=== PATIENT | male | born 1970 | race Caucasian/White ===

== ENCOUNTER → 2016-11-19 | Day surgery (SDC) | payer OTHER ==
[~2016-11-19] VITALS: Ht 175.3 cm; Wt 143.3 kg
[~2016-11-19] MED LIST: ATOR40TA PO; CEFUROXIME SODIUM 1.5 GM in D5W MINI-BAG PLUS 50 ML IV ONE; COLA100C PO; CYCL10TA PO; CYMB60CA3 PO; GABA600T PO; GLIP5TAB8 PO; HYDR25TAB PO; INVO100T PO; KETOROLAC 60 MG/2 ML VIAL (J1885) As Ordered ONE; LIDOCAINE 0.5% SDV INJ 50 ML VIAL As Ordered ONE; LIDOCAINE 1% MDV 20ML VIAL As Ordered ONE; LIDOCAINE 2% INJ 100 MG/5 ML SDV (FOR ANES.) As Ordered ONE; LISI-542 PO; LR 1,000 ML IV SCH; METF1000 PO; MIDAZOLAM INJ 2 MG/2 ML VIAL (J2250) As Ordered ONE; NORCO, ANEXSIA 5/325MG TABLET (HYDROcodone/ACETAMINOPHEN) PO PRN; PRIL20CA9 PO; PROPOFOL 200 MG/20 ML VIAL As Ordered ONE; VITA50TA43 PO; ZYRT10TA2 PO; fentaNYL 100 MCG/2 ML INJECTION (J3010) As Ordered ONE; methylPREDNISolone SUSP 40 MG/ML (DEPO-medrol) VIAL (J1030) As Ordered ONE; methylPREDNISolone SUSP 40 MG/ML (DEPO-medrol) VIAL (J1030) XX ONE
[2016-11-19 10:00] VITALS: BP 137/70
--- NOTE | 2016-11-19 13:47 | RO ---
DATE OF PROCEDURE: 11/19/2016 PREOPERATIVE DIAGNOSES: Right carpal tunnel syndrome. Morbid obesity. POSTOPERATIVE DIAGNOSES: Right carpal tunnel syndrome. Morbid obesity. PROCEDURE: Release of right carpal tunnel. SURGEON: Immanuel Viramontes MD MORTUARY TECHNICIAN: ANESTHESIA: Tremaine block with conscious sedation. FINDINGS: Please see my office note for detailed preoperative evaluation and discussions. The patient had clinical and electrodiagnostic evidence of carpal tunnel syndrome. The patient was seen in the preoperative area and detailed discussions were held again. The patient was aware of all options, risks, scope, expected outcome, sequelae and all complications of the proposed salvage procedure. He understood not all of his symptoms could be readily explained on the carpal tunnel syndrome; thus, all may not be addressed. He understood the risks included , infection, bleeding, persistence or worsening of symptoms, RSD and/or any other catastrophic sequelae. He understood the symptoms may get worse. Once again, he expressed that he is willing to take any risks for any possible benefit as he can no longer live with his symptoms and he is aware that he is a poor and high risk candidate for surgery. The patient was cleared for surgery by his primary care provider. The patient had followup instructions. After informed consent, he was taken to the operating room. DESCRIPTION OF PROCEDURE: Once in the operating room, [place] block was given by the anesthesia service. The area of surgery was prepped and draped in the usual sterile fashion. A tourniquet was applied during the process of the Tremaine block. At this time, a skin incision was given distal to the wrist crease along one of the palmar creases. Alveolar layer was reached and incised. Cut edges of blood vessels were coagulated with bipolar cautery. Tendons of the palmaris longus were separate. Thenar and hyperthenar muscles were stripped off the flexor retinaculum, which was then incised in its entirety. There was marked nodular hypertrophy of the flexor retinaculum. Also, there was superficial median nerve adhesions which were lysed. Complete decompression of the median nerve was achieved of the carpal tunnel and distal forearm. The wound was closed in two layers. The patient tolerated the procedure well and was transferred out of the operating room in stable condition. He had no family members in attendance for further discussion. The patient however had written and verbal followup instructions. cc: Bryson Echevarria MD *Du Bustos MD
== END | disposition home or self-care (01) ==
LOC: M SDC 06:05
PROVIDERS: ATTEND Neurological Surgery
DX: G56.01 Carpal tunnel syndrome, right upper limb (principal); E66.9 Obesity, unspecified; I10 Essential (primary) hypertension; E11.21 Type 2 diabetes mellitus with diabetic nephropathy; K21.9 Gastro-esophageal reflux disease without esophagitis; G62.9 Polyneuropathy, unspecified; R20.2 Paresthesia of skin; R94.31 Abnormal electrocardiogram [ECG] [EKG]; E78.00 Pure hypercholesterolemia, unspecified; R60.0 Localized edema; K58.9 Irritable bowel syndrome, unspecified; G89.29 Other chronic pain; M79.601 Pain in right arm; M79.602 Pain in left arm; M79.604 Pain in right leg; M79.605 Pain in left leg; M54.5 Low back pain; G47.33 Obstructive sleep apnea (adult) (pediatric); R06.83 Snoring; M12.9 Arthropathy, unspecified; F41.9 Anxiety disorder, unspecified; F32.9 Major depressive disorder, single episode, unspecified; R06.02 Shortness of breath; Z88.8 Allergy status to other drugs, medicaments and biological substances; Z79.899 Other long term (current) drug therapy

== ENCOUNTER 2017-09-14 12:50 | Outpatient (RCR) | payer OTHER ==
[~2017-09-14 12:50] MED LIST changes: -ATOR40TA PO; +ATOR40TA75 PO; -CEFUROXIME SODIUM 1.5 GM in D5W MINI-BAG PLUS 50 ML IV ONE; -COLA100C PO; +COLA100C5 PO; -KETOROLAC 60 MG/2 ML VIAL (J1885) As Ordered ONE; -LIDOCAINE 0.5% SDV INJ 50 ML VIAL As Ordered ONE; -LIDOCAINE 1% MDV 20ML VIAL As Ordered ONE; -LIDOCAINE 2% INJ 100 MG/5 ML SDV (FOR ANES.) As Ordered ONE; -LR 1,000 ML IV SCH; -METF1000 PO; +METF10004 PO; -MIDAZOLAM INJ 2 MG/2 ML VIAL (J2250) As Ordered ONE; -NORCO, ANEXSIA 5/325MG TABLET (HYDROcodone/ACETAMINOPHEN) PO PRN; -PROPOFOL 200 MG/20 ML VIAL As Ordered ONE; -fentaNYL 100 MCG/2 ML INJECTION (J3010) As Ordered ONE; -methylPREDNISolone SUSP 40 MG/ML (DEPO-medrol) VIAL (J1030) As Ordered ONE; -methylPREDNISolone SUSP 40 MG/ML (DEPO-medrol) VIAL (J1030) XX ONE
== END 2017-10-01 ==
LOC: M PT 12:50
PROVIDERS: ATTEND Neurological Surgery
DX: Z51.89 Encounter for other specified aftercare (principal); M47.896 Other spondylosis, lumbar region; M54.5 Low back pain

== ENCOUNTER → 2017-09-29 | Outpatient (CLI) | payer OTHER ==
[~2017-09-29] MED LIST changes: +ISOVUE-M 300 61% 15ML VIAL (Q9967) As Ordered ONE; +LIDOCAINE 1% SDV INJ 30 ML VIAL As Ordered ONE; +diazePAM 5 MG TAB As Ordered ONE; +methylPREDNISolone SUSP 40 MG/ML (DEPO-medrol) VIAL (J1030) As Ordered ONE; +oxyCODONE 5MG TAB As Ordered ONE
--- NOTE | 2017-09-29 12:50 | REP ---
Partial lumbar spine series: Five views. . History: Injection procedure for pain. 57 seconds of fluoroscopy time is reported. Findings: A sequence of five fluoroscopically obtained last image hold procedural spot radiographs of the lumbar spine document needle position and contrast injection associated with injection procedure. Signed by Leroy Obando MD 09/29/2017 12:42 P
--- NOTE | 2017-10-14 00:32 | ECWPNPC ---
PATIENT NAME: RUBÉN MARC : 1970 GENDER: MALE VISIT DATE: 09/29/2017 DISCHARGE DATE: 09/29/17 1225 VISIT LOCKED DATE TIME: PHYSICIAN: YOANA MENDOZA RESOURCE: YOANA MENDOZA REASON FOR APPOINTMENT 1. LUMBAR INTRALAMINAL LESI L3/4 HISTORY OF PRESENT ILLNESS HISTORY OF PRESENT ILLNESS: PAIN THE PATIENT DESCRIBES THE PAIN... FALL RISK SCREENING: SCREENING :NO FALLS IN THE PAST YEAR CURRENT MEDICATIONS TAKING GABAPENTIN 600 MG TABLET TAKE 2 TABLETS BY MOUTH THREE TIMES A DAY ORAL , NOTES: 09/29 600 TAKING CETIRIZINE HCL 10 MG TABLET TAKE ONE TABLET BY MOUTH EVERY DAY ORAL , NOTES: 09/29 600 TAKING CYCLOBENZAPRINE HCL 10 MG TABLET TAKE ONE TABLET BY MOUTH THREE TIMES A DAY NEEDED ORAL , NOTES: 09/29 600 TAKING DOK 100 MG CAPSULE TAKE ONE CAPSULE BY MOUTH TWICE A DAY ORAL , NOTES: 09/29 600 TAKING DULOXETINE HCL 60 MG CAPSULE DELAYED RELEASE PARTICLES TAKE ONE CAPSULE BY MOUTH TWICE A DAY ORAL , NOTES: 09/29 600 TAKING CLOPIDOGREL BISULFATE 75 MG TABLET TAKE ONE TABLET BY MOUTH EVERY DAY ORAL , NOTES: 09/20 TAKING FAMOTIDINE 20 MG TABLET TAKE ONE TABLET BY MOUTH EVERY 12 HOURS ORAL , NOTES: 09/29 600 MEDICATION LIST REVIEWED AND RECONCILED WITH THE PATIENT PAST MEDICAL HISTORY SLEEP APNEA GERD HIGH CHOLESTEROL HTN ON PLAVIX BECAUSE MD COULD NOT FEEL PEDAL PULSES / PT GOING TO SEE VASCULAR SURGEON IN FUTURE ALLERGIES MODAFINIL: ITCHING SURGICAL HISTORY RIGHT CARPAL TUNNEL 11/2016 BARIATRIC SURGERY 04/2017 LEFT CARPAL MARIEL / ELBOW 05/2017 SOCIAL HISTORY GENERAL: TOBACCO USE ARE YOU A:NONSMOKER ALCOHOL SCREENING DID YOU HAVE A DRINK CONTAINING ALCOHOL IN THE PAST YEAR?NO POINTS0 INTERPRETATIONNEGATIVE RECREATIONAL DRUG USE DRUG USE?NO CAFFEINE CAFFEINE USE?YES DIET: BARIATRIC. CONFUCIANIST [id number] LEARNING BARRIERS / SPECIAL NEEDS BARRIERS TO LEARNING?NO HEARING IMPAIRED?NO VISION IMPAIRED?YES :CORRECTIVE LENSES COGNITIVELY IMPAIRED?NO READINESS TO LEARN?YES LEARNING PREFERENCES?NO LEARNING CAPABILITIES PRESENT?YES EMOTIONAL BARRIERS?NO SPECIAL DEVICES?YES :CANE, WALKER, WHEELCHAIR PAIN CLINIC PFS, CLERGY, PUBLIC HEALTH REFERRALS PFS REFERRAL NEEDED?NO CLERGY REFERRAL NEEDED?NO PUBLIC HEALTH REFERRAL NEEDED?NO WAS THE PROVIDER NOTIFIED OF ANY PERTINENT INFO?NO HAS THE PATIENT BEEN EDUCATED REGARDING HIS/HER PLAN OF CARE?YES HAS THE PATIENT BEEN EDUCATED REGARDING PAIN, THE RISK FOR PAIN, THE IMPORTANCE OF EFFECTIVE PAIN MANAGEMENT, AND THE PAIN ASSESSMENT PROCESS?YES REVIEWED BY: 09/29/17 1025 AD. PATIENT: ____. ADVANCE DIRECTIVES HEALTH CARE PROXY?YES NAME OF HCP GEOVANY MARC CONTACT # FOR HCP [phone] DO YOU HAVE A DNR?NO WOULD YOU LIKE MORE INFORMATION?NO LIVING WILL?NO WOULD YOU LIKE MORE INFORMATION?NO POWER OF ELECTRIC CLOCK MECHANIC?NO WOULD YOU LIKE MORE INFORMATION?NO SOCIAL HISTORY PATIENTDENIES ABUSE OR MISSUSED OF ANY MEDICATION, DENIES RECREATIONAL DRUG USE DOMESTIC VIOLENCE DO YOU FEEL SAFE IN YOUR ENVIRONMENT?YES HOSPITALIZATION/MAJOR DIAGNOSTIC PROCEDURE SEE ABOVE REVIEW OF SYSTEMS REVIEWED BY: PROVIDER: . CONSTITUTIONAL: ANY CHANGE IN YOUR MEDICAL CONDITION? NO . CHILLS NO . FEVER NO . INFECTION: DO YOU HAVE NEW INFECTIONS? NO . DO YOU HAVE HISTORY OF MRSA? NO . MUSCULOSKELETAL: ANY NEW PATTERNS OF PAIN OR NUMBNESS? NO . GASTROENTEROLOGY: ANY NEW CHANGE IN BOWEL CONTROL? NO . GENITOURINARY: ANY NEW CHANGE IN BLADDER CONTROL? NO . IS THERE A CHANCE YOU COULD BE ? NO . HEMATOLOGY/LYMPH: DO YOU TAKE ANY BLOOD THINNERS? (FOR EXAMPLE- COUMADIN, PLAVIX, AGGRENOX, PLATEL, PRADAXA, OR XARELTO) NO . WHEN WAS YOUR LAST DOSE? DATE: TIME: . NEUROLOGY: HAVE YOU FALLEN IN THE PAST 6 MONTHS? YES, APPROX 3 TIMES, HIS RIGHT LEG GIVES OUT ON HIM. . ANY NEW EXTREMITY NUMBNESS OR WEAKNESS? NO . CARDIOLOGY: DO YOU HAVE A PACEMAKER OR DEFIBRILLATOR? NO . RESPIRATORY: HAVE YOU BEEN SICK IN THE PAST WEEK? NO . FEVER NO . FLU LIKE SYMPTOMS? NO . COUGH NO . INTEGUMENTARY: DO YOU HAVE ANY RASHES OR OPEN SORES? NO . ALLERGIC/IMMUNO: ARE YOU ALLERGIC TO SHELLFISH OR IV DYE? NO . ANY NEW ALLERGIES? NO . PSYCHIATRIC: DO YOU HAVE THOUGHTS OF HURTING YOURSELF OR SOMEONE ELSE? NO . ARE YOU ABUSED, NEGLECTED, OR IN AN UNSAFE ENVIRONMENT? NO . ENDOCRINOLOGY: ARE YOU DIABETIC? NO . OTHER: DO YOU NEED ANY PRESCRIPTIONS? NO . IF YES, PLEASE LIST: ____ . ANY NEW PROBLEMS WITH YOUR MEDICATIONS? NO . WHEN DID YOU LAST EAT? 09/28 1800 . WHEN DID YOU LAST DRINK? 09/29 0700 . WHAT DID YOU LAST DRINK? WATER . NAME OF PERSON DRIVING YOU HOME? AVI LORA . DO YOU HAVE ANY OTHER QUESTIONS OR CONCERNS NO . VITAL SIGNS WT 284.2 LBS, HT 69 IN, BMI 41.96 INDEX, BP 132/81 MM HG, HR 69 /MIN, RR 16 /MIN, TEMP 96.0 F, OXYGEN SAT % 99%, SAFE IN ENV? (Y/N) Y, NA INITIALS TL 1016, REVIEWED BY: AD. ASSESSMENTS INTERVERTEBRAL DISC DISORDER WITH RADICULOPATHY OF LUMBAR REGION - M51.16 (PRIMARY) PROCEDURES PRE PROCEDURE DIAGNOSIS LUMBAR DISC DISORDER WITH RADICULOPATHY POST PROCEDURE DIAGNOSIS LUMBAR DISC DISORDER WITH RADICULOPATHY PROCEDURE LUMBAR EPIDURAL STEROID INJECTION UNDER FLUOROSCOPIC GUIDANCE SURGEON DR. YOANA MENDOZA COMPLIANCE COUNSEL NONE ANESTHESIA LOCAL PRE PROCEDURE NOTE THE PATIENT HAS A HISTORY OF CHRONIC LOW BACK PAIN. I EVALUATE THE PATIENT AND REVIEWED THE CHART. I WENT OVER THE RISKS, ALTERNATIVES, AND BENEFITS ASSOCIATED WITH THIS PROCEDURE. THE PATIENT WOULD LIKE TO PROCEED AND GIVE CONSENT TO PERFORMED THE PROCEDURE. THE PATIENT DENIES UNEXPLAINABLE WEIGHT LOSS, FEVER, CHILLS, OR NEW CHANGES IN URINARY OR BOWEL CONTROL. DESCRIPTION OF PROCEDURE THE PATIENT WAS BROUGHT TO THE PROCEDURE ROOM AND PLACED IN THE PRONE POSITION. THE LUMBOSACRAL AREA WAS CLEANED WITH BETADINE SOLUTION AND DRAPED ASEPTICALLY. THE PROCEDURE WAS DONE UNDER STERILE CONDITIONS. I CHECKED LATERALITY AND THE LEVEL WHERE THE PROCEDURE WAS GOING TO BE PERFORMED WITH THE PATIENT AND THE SUPPORTING STAFF AT THE MOMENT OF THE TIME OUT IN THE PROCEDURE ROOM. UNDER FLUOROSCOPIC GUIDANCE, THE TARGET POINT WAS SELECTED AT THE INTERLAMINAR LEVEL OF L2-L3. LIDOCAINE WAS USED TO NUMB THE SKIN AND THE SUBCUTANEOUS TISSUE BELOW IT. EPIDURAL TUOHY NEEDLE, 17-GAUGE, WAS ADVANCED UNDER FLUOROSCOPIC GUIDANCE AND FOLLOWING PATIENT FEEDBACK UNTIL THE EPIDURAL SPACE WAS REACHED, 7 CM DEEP INTO THE SKIN BY THE LOSS OF RESISTANCE TECHNIQUE. ISOVUE M DYE 30%, 0.25 ML, WAS INJECTED SHOWING ADEQUATE SPREAD OF THE DYE. THEN, A SOLUTION OF 3 ML OF NORMAL SALINE WITH DEPO-MEDROL 60 MG WAS INJECTED SLOWLY FOLLOWING PATIENT FEEDBACK. THERE WAS NO EVIDENCE OF BLOOD, PARESTHESIA OR CEREBROSPINAL FLUID DURING THE PROCEDURE. THE PATIENT WAS SENT TO THE RECOVERY ROOM. THE PATIENT WAS MOVING THE EXTREMITIES AND DOING WELL. THERE WAS NO COMPLICATION DURING THE PROCEDURE. FLUOROSCOPY TIME WAS 57 SECONDS. POST PROCEDURE NOTE THE PATIENT WILL BE SEEN IN A FOLLOW UP IN THE NEXT FEW WEEKS. INSTRUCTIONS WERE GIVEN, QUESTIONS WERE ANSWERED, AND THE PATIENT EXPRESSED UNDERSTANDING AND AGREES WITH THE PLAN. I, SEAN CASTRO, DOCUMENTED THE ABOVE INFORMATION ACTING A SCRIBE FOR DR. MENDOZA. I HAVE REVIEWED THE ABOVE DOCUMENT, WRITTEN BY SEAN RAUSCHIBNaveed AND I VERIFY THAT IT IS ACCURATE. DIAGNOSTIC IMAGING [facility] FLUORO GUIDE SPINE INJECTION (PAIN)[id number] PROCEDURE CODES 31331 LUMBAR/SACRAL W/ IMAGING 6045F RADXPS IN END [id number] PXD DISPOSITION & COMMUNICATION FOLLOW UP 2 WEEKS ELECTRONICALLY SIGNED BY YOANA MENDOZA MD ON 10/13/2017 AT 09:57 PM EST DISCLAIMER : THIS IS A VISIT SUMMARY EXTRACTED FROM THE [employer] CHART. IT IS NOT A COPY OF THE [employer] PROGRESS NOTE. MTDD
== END ==
LOC: M PAIN 10:15
PROVIDERS: ATTEND Anesthesiology
DX: G89.29 Other chronic pain (principal); M51.16 Intervertebral disc disorders with radiculopathy, lumbar region; G47.30 Sleep apnea, unspecified; K21.9 Gastro-esophageal reflux disease without esophagitis; E78.00 Pure hypercholesterolemia, unspecified; I10 Essential (primary) hypertension; Z79.02 Long term (current) use of antithrombotics/antiplatelets; Z79.899 Other long term (current) drug therapy; Z98.84 Bariatric surgery status; Z88.8 Allergy status to other drugs, medicaments and biological substances
CPT/HCPCS: 62323; J1030; Q9967

== ENCOUNTER → 2017-10-05 | Outpatient (CLI) | payer OTHER ==
[~2017-10-05] MED LIST changes: -ISOVUE-M 300 61% 15ML VIAL (Q9967) As Ordered ONE; -LIDOCAINE 1% SDV INJ 30 ML VIAL As Ordered ONE; -diazePAM 5 MG TAB As Ordered ONE; -methylPREDNISolone SUSP 40 MG/ML (DEPO-medrol) VIAL (J1030) As Ordered ONE; -oxyCODONE 5MG TAB As Ordered ONE
--- NOTE | 2017-10-05 14:33 | REP ---
BILATERAL LOWER EXTREMITY DUPLEX VENOUS ULTRASOUND, REFLUX STUDY: 10/05/2017 CLINICAL HISTORY: Venous insufficiency. No comparison study. RIGHT REFLUX STUDY: Common femoral vein: Yes reflux. Anterior accessory GSV present, no reflux. GSV at saphenofemoral junction: Yes reflux. AP dimension 5.8 mm, reflux 1.8 second GSV at midthigh: Yes reflux. AP diameter was 4.1 mm, time 8.56 seconds. GSV at knee: Yes reflux. AP dimension 2.6 mm, time 1.2 seconds. SFV proximal: Yes reflux. SFV mid: Yes reflux. SFV distal: No reflux. Popliteal vein: No reflux. LSV: No reflux. AP diameter LSD 3.4 mm. Minimal reflux seen in the deep system to the mid SFV. Reflux also the greater saphenous vein proximal to distal. LEFT REFLUX STUDY: Common femoral vein: Yes reflux. Anterior accessory greater saphenous vein present, minimal reflux. GSV at saphenofemoral junction: Yes reflux. AP dimension 4.7 mm, time 1.7 seconds. GSV at midthigh: Yes reflux. AP diameter 3.2 mm, time 1.2 seconds GSV at the knee: No reflux. AP diameter 2.3 mm. SFV proximal: Yes reflux. SFV mid: Yes reflux. SFV distal: Yes reflux. Popliteal vein: Yes reflux. LSV: No reflux. AP dimension 1 mm Reflux was seen in deep venous system and minimal reflux in the anterior accessory and greater saphenous vein from proximal to midportion. Signed by Doug Ontiveros MD 10/06/2017 08:12 P
== END ==
LOC: M RAD 11:48
PROVIDERS: ATTEND Surgery Vascular Surgery
DX: M79.605 Pain in left leg (principal); M79.604 Pain in right leg

== ENCOUNTER → 2017-10-22 | Outpatient (CLI) | payer OTHER | LOC: M PAIN 11:15 | DX: M51.26 Other intervertebral disc displacement, lumbar region (principal); M54.16 Radiculopathy, lumbar region; Z79.899 Other long term (current) drug therapy; Z88.8 Allergy status to other drugs, medicaments and biological substances | CPT/HCPCS: G0463 ==

== ENCOUNTER → 2017-12-08 | Outpatient (CLI) | payer OTHER ==
[~2017-12-08] MED LIST changes: -ATOR40TA75 PO; -COLA100C5 PO; -CYCL10TA PO; -CYMB60CA3 PO; -GABA600T PO; -GLIP5TAB8 PO; -HYDR25TAB PO; -INVO100T PO; +ISOVUE-M 300 61% 15ML VIAL (Q9967) As Ordered; +LIDOCAINE 1% SDV INJ 30 ML VIAL As Ordered; -LISI-542 PO; -METF10004 PO; -PRIL20CA9 PO; -VITA50TA43 PO; -ZYRT10TA2 PO; +diazePAM 5 MG TAB As Ordered; +methylPREDNISolone SUSP 40 MG/ML (DEPO-medrol) VIAL (J1030) As Ordered; +oxyCODONE 5MG TAB As Ordered
== END ==
LOC: M PAIN 11:15
DX: G89.29 Other chronic pain (principal); M51.16 Intervertebral disc disorders with radiculopathy, lumbar region; G47.30 Sleep apnea, unspecified; E78.00 Pure hypercholesterolemia, unspecified; I10 Essential (primary) hypertension; I87.2 Venous insufficiency (chronic) (peripheral); Z79.899 Other long term (current) drug therapy; Z88.8 Allergy status to other drugs, medicaments and biological substances
CPT/HCPCS: J1030

== ENCOUNTER → 2017-12-25 | Outpatient (CLI) | payer OTHER | LOC: M PAIN 10:30 | DX: M47.27 Other spondylosis with radiculopathy, lumbosacral region (principal); M51.26 Other intervertebral disc displacement, lumbar region; E11.9 Type 2 diabetes mellitus without complications; Z79.891 Long term (current) use of opiate analgesic; Z79.899 Other long term (current) drug therapy; Z88.8 Allergy status to other drugs, medicaments and biological substances | CPT/HCPCS: G0463 ==

== ENCOUNTER → 2018-01-08 | Outpatient (CLI) | payer OTHER | LOC: M RAD 09:29 | DX: I87.393 Chronic venous hypertension (idiopathic) with other complications of bilateral lower extremity (principal) | CPT/HCPCS: 93971 ==

== ENCOUNTER → 2018-01-20 | Outpatient (CLI) | payer OTHER | LOC: M PAIN 10:00 | DX: M47.27 Other spondylosis with radiculopathy, lumbosacral region (principal); M51.26 Other intervertebral disc displacement, lumbar region; M79.1 Myalgia; Z79.891 Long term (current) use of opiate analgesic; Z79.899 Other long term (current) drug therapy; Z88.8 Allergy status to other drugs, medicaments and biological substances | CPT/HCPCS: G0463 ==

== ENCOUNTER → 2018-03-18 | Outpatient (CLI) | payer OTHER | LOC: M PAIN 09:30 | DX: G89.29 Other chronic pain (principal); M53.3 Sacrococcygeal disorders, not elsewhere classified; G47.30 Sleep apnea, unspecified; K21.9 Gastro-esophageal reflux disease without esophagitis; E78.00 Pure hypercholesterolemia, unspecified; I10 Essential (primary) hypertension; I87.2 Venous insufficiency (chronic) (peripheral); Z79.02 Long term (current) use of antithrombotics/antiplatelets; Z79.899 Other long term (current) drug therapy; Z98.84 Bariatric surgery status; Z88.8 Allergy status to other drugs, medicaments and biological substances | CPT/HCPCS: G0463 ==

== ENCOUNTER → 2018-03-26 | Outpatient (CLI) | payer OTHER | LOC: M RAD 12:25 | DX: I87.393 Chronic venous hypertension (idiopathic) with other complications of bilateral lower extremity (principal); M79.604 Pain in right leg; E11.59 Type 2 diabetes mellitus with other circulatory complications | CPT/HCPCS: 93971 ==

== ENCOUNTER 2018-04-06 13:13 | Outpatient (RCR) | payer OTHER | END 2018-05-01 | LOC: M PT 13:13 | DX: Z51.89 Encounter for other specified aftercare (principal); M46.1 Sacroiliitis, not elsewhere classified | CPT/HCPCS: 97010 ==

== ENCOUNTER → 2018-04-20 | Outpatient (CLI) | payer OTHER ==
[~2018-04-20] MED LIST changes: +BUPIVACAINE HCL 0.25% 30 ML VIAL As Ordered; +TRIAMCINOLONE ACETONIDE SUSP 40 MG/ML VIAL (J3301) As Ordered; -methylPREDNISolone SUSP 40 MG/ML (DEPO-medrol) VIAL (J1030) As Ordered
== END ==
LOC: M PAIN 11:15
DX: G89.29 Other chronic pain (principal); M46.1 Sacroiliitis, not elsewhere classified; G47.30 Sleep apnea, unspecified; E78.00 Pure hypercholesterolemia, unspecified; I10 Essential (primary) hypertension; I87.2 Venous insufficiency (chronic) (peripheral); Z79.01 Long term (current) use of anticoagulants; Z79.899 Other long term (current) drug therapy; Z88.8 Allergy status to other drugs, medicaments and biological substances; Z98.84 Bariatric surgery status
CPT/HCPCS: J3301

== ENCOUNTER 2018-04-23 07:44 | Day surgery (SDC) | payer OTHER ==
[2018-04-23] MEDS ORDERED: LIDOCAINE 1% MDV 20ML VIAL SQ ×2 (08:00)
[2018-04-23] MEDS ORDERED: LR 1,000 ML IV ×2 (08:00)
[2018-04-23 09:13] LABS: BEDSIDE GLUCOSE 133 MG/DL (70-105)
[2018-04-23] MEDS ORDERED: MIDAZOLAM INJ 2 MG/2 ML VIAL (J2250) As Ordered ×2 (10:42)
[2018-04-23] MEDS ORDERED: fentaNYL 100 MCG/2 ML INJECTION (J3010) As Ordered ×2 (10:43)
[2018-04-23] MEDS ORDERED: ONDANSETRON 4MG/2ML VIAL (J2405) As Ordered ×2 (11:02)
[2018-04-23] MEDS ORDERED: dexameTHASONE 4 MG/ML 1ML VIAL (J1100) As Ordered ×4 (11:02)
[2018-04-23] MEDS ORDERED: PROPOFOL 200 MG/20 ML VIAL As Ordered ×6 (11:02→11:49)
[2018-04-23] MEDS ORDERED: LIDOCAINE 2% INJ 100 MG/5 ML SDV (FOR ANES.) As Ordered ×2 (11:02)
[2018-04-23] MEDS: LIDOCAINE W/EPINEPHRINE 1% 20ML VIAL As Ordered ×2 (11:38)
[2018-04-23] MEDS ORDERED: fentaNYL 100 MCG/2 ML INJECTION (J3010) IV ×2 (12:30)
[2018-04-23] MEDS ORDERED: ONDANSETRON 4MG/2ML VIAL (J2405) IV ×2 (12:30)
[2018-04-23] MEDS: NORCO, ANEXSIA 5/325MG TABLET (HYDROcodone/ACETAMINOPHEN) PO ×2 (12:40)
== END 2018-04-23 13:40 | disposition home or self-care (01) ==
LOC: M SDC 07:44
DX: I87.2 Venous insufficiency (chronic) (peripheral) (principal); M79.604 Pain in right leg (principal)
CPT/HCPCS: 36475; J2405

== ENCOUNTER → 2018-04-30 | Outpatient (CLI) | payer OTHER | LOC: M RAD 09:21 | DX: M71.21 Synovial cyst of popliteal space [Baker], right knee (principal) | CPT/HCPCS: 93971 ==

== ENCOUNTER → 2018-05-20 | Outpatient (CLI) | payer OTHER | LOC: M PAIN 10:45 | DX: M46.1 Sacroiliitis, not elsewhere classified (principal); M25.562 Pain in left knee; M25.561 Pain in right knee; E78.00 Pure hypercholesterolemia, unspecified; I10 Essential (primary) hypertension; G47.33 Obstructive sleep apnea (adult) (pediatric); I87.2 Venous insufficiency (chronic) (peripheral); Z79.01 Long term (current) use of anticoagulants; Z79.899 Other long term (current) drug therapy; Z88.8 Allergy status to other drugs, medicaments and biological substances; Z98.84 Bariatric surgery status | CPT/HCPCS: G0463 ==

== ENCOUNTER → 2018-06-21 | Outpatient (CLI) | payer OTHER | LOC: M PAIN 11:30 | DX: M46.1 Sacroiliitis, not elsewhere classified (principal); G47.30 Sleep apnea, unspecified; K21.9 Gastro-esophageal reflux disease without esophagitis; E78.00 Pure hypercholesterolemia, unspecified; I10 Essential (primary) hypertension; I87.2 Venous insufficiency (chronic) (peripheral); Z79.02 Long term (current) use of antithrombotics/antiplatelets; Z79.899 Other long term (current) drug therapy; Z98.84 Bariatric surgery status; Z88.8 Allergy status to other drugs, medicaments and biological substances | CPT/HCPCS: J3301 ==

== ENCOUNTER → 2018-07-21 | Outpatient (CLI) | payer MEDICARE | LOC: M PAIN 11:30 | DX: M51.27 Other intervertebral disc displacement, lumbosacral region (principal); M46.1 Sacroiliitis, not elsewhere classified; G47.33 Obstructive sleep apnea (adult) (pediatric); K21.9 Gastro-esophageal reflux disease without esophagitis; E78.00 Pure hypercholesterolemia, unspecified; I10 Essential (primary) hypertension; Z79.01 Long term (current) use of anticoagulants; Z79.899 Other long term (current) drug therapy; Z98.84 Bariatric surgery status; Z88.8 Allergy status to other drugs, medicaments and biological substances | CPT/HCPCS: G0463 ==

== ENCOUNTER → 2018-08-16 | Outpatient (CLI) | payer MEDICARE, OTHER ==
[~2018-08-16] MED LIST changes: -BUPIVACAINE HCL 0.25% 30 ML VIAL As Ordered; -TRIAMCINOLONE ACETONIDE SUSP 40 MG/ML VIAL (J3301) As Ordered; +methylPREDNISolone SUSP 40 MG/ML (DEPO-medrol) VIAL (J1030) As Ordered
== END ==
LOC: M PAIN 10:30
DX: G89.29 Other chronic pain (principal); M51.16 Intervertebral disc disorders with radiculopathy, lumbar region; I10 Essential (primary) hypertension; G47.30 Sleep apnea, unspecified; E78.00 Pure hypercholesterolemia, unspecified; Z79.899 Other long term (current) drug therapy; Z88.8 Allergy status to other drugs, medicaments and biological substances; Z86.79 Personal history of other diseases of the circulatory system; Z98.84 Bariatric surgery status
CPT/HCPCS: J1030

== ENCOUNTER → 2018-08-18 | Outpatient (CLI) | payer OTHER, MEDICARE ==
[2018-08-18 11:10] LABS: ALBUMIN 4.2 GM/DL (3.2-5.2); ALBUMIN/GLOBULIN RATIO 1.27 (1.00-1.93); ALKALINE PHOSPHATASE 124 U/L (45-117); ALT/SGPT 81 U/L (12-78); AST/SGOT 36 U/L (7-37); BILIRUBIN,DIRECT < 0.1 MG/DL (0.0-0.2); BILIRUBIN,TOTAL 0.3 MG/DL (0.2-1.0); CHOLESTEROL LEVEL 190 MG/DL (<200); CHOLESTEROL RISK RATIO 3.392 (<5); FERRITIN 204 NG/ML (26-388); HDL CHOLESTEROL 56 MG/DL (>40); IRON (FE) 78 UG/DL (65-175); LDL CHOLESTEROL 101 MG/DL (<100); NON-HDL-C 134 MG/DL; PERCENT SATURATION 25.9 % (19.7-50.0); TOTAL IRON BINDING CAPACITY 301 UG/DL (250-450); TOTAL PROTEIN 7.5 GM/DL (6.4-8.2); TRIGLYCERIDES LEVEL 164 MG/DL (<150)
[2018-08-18 11:50] LABS: HEPATITIS B SURFACE ANTIBODY NEGATIVE (POSITIVE)
== END ==
LOC: M LAB 09:47
DX: R94.5 Abnormal results of liver function studies (principal)
CPT/HCPCS: 83010

== ENCOUNTER → 2018-08-27 | Outpatient (CLI) | payer MEDICARE, OTHER | LOC: M PAIN 09:00 | DX: M47.817 Spondylosis without myelopathy or radiculopathy, lumbosacral region (principal); I10 Essential (primary) hypertension; E11.9 Type 2 diabetes mellitus without complications; E78.00 Pure hypercholesterolemia, unspecified; G47.30 Sleep apnea, unspecified; Z79.01 Long term (current) use of anticoagulants; Z79.899 Other long term (current) drug therapy; Z88.8 Allergy status to other drugs, medicaments and biological substances; Z98.84 Bariatric surgery status; Z86.79 Personal history of other diseases of the circulatory system | CPT/HCPCS: G0463 ==

== ENCOUNTER → 2018-09-28 | Outpatient (CLI) | payer MEDICARE, OTHER ==
[~2018-09-28] MED LIST changes: +ATOR1TAB21 PO; +ATOR40TA75 PO; +BUPIVACAINE HCL 0.25% 30 ML VIAL As Ordered ONE; +BUPR150T3; +CITRTAB18 PO; +CLOP75TA2; +COLA100C5 PO; +CYCL10TA PO; +CYMB60CA3 PO; +D 50CAP; +D3-5CAP; +FAMO1TAB11; +FLINCHW PO; +GABA600T4 PO; +GLIP5TAB8 PO; +HYDR25TAB PO; +INVO100T PO; -ISOVUE-M 300 61% 15ML VIAL (Q9967) As Ordered; +ISOVUE-M 300 61% 15ML VIAL (Q9967) As Ordered ONE; -LIDOCAINE 1% SDV INJ 30 ML VIAL As Ordered; +LIDOCAINE 1% SDV INJ 30 ML VIAL As Ordered ONE; +LISI-542 PO; +METF10004 PO; +PREG50CA PO; +PRIL20CA9 PO; +SENN8.6T17 PO; +TIZA4CAP; +TRAM50TA2; +VITA400C7 PO; +VITA50TA43 PO; +ZYRT10CA5 PO; -diazePAM 5 MG TAB As Ordered; -methylPREDNISolone SUSP 40 MG/ML (DEPO-medrol) VIAL (J1030) As Ordered; -oxyCODONE 5MG TAB As Ordered
--- NOTE | 2018-09-28 16:37 | REP ---
Partial lumbar spine series: Six views . History: Injection procedure for pain. 36 seconds of fluoroscopy time is reported. Findings: A sequence of six fluoroscopically obtained last image hold procedural spot radiographs of the lumbar spine document needle position and contrast injection associated with injection procedure. Electronically Signed by Leroy Obando MD 09/28/2018 04:30 P
--- NOTE | 2018-10-13 02:09 | ECWPNPC ---
PATIENT NAME: RUBÉN MARC : 1970 GENDER: MALE VISIT DATE: 09/28/2018 DISCHARGE DATE: 09/28/18 1336 VISIT LOCKED DATE TIME: PHYSICIAN: YOANA MENDOZA MD RESOURCE: YOANA MENDOZA MD DISCLAIMER : THIS IS A VISIT SUMMARY EXTRACTED FROM THE [facility] CHART. IT IS NOT A COPY OF THE [employer] PROGRESS NOTE. MTDD
== END ==
LOC: M PAIN 11:00
PROVIDERS: ATTEND Anesthesiology
DX: G89.29 Other chronic pain (principal); M47.816 Spondylosis without myelopathy or radiculopathy, lumbar region; M47.817 Spondylosis without myelopathy or radiculopathy, lumbosacral region; E11.9 Type 2 diabetes mellitus without complications; I10 Essential (primary) hypertension; E78.00 Pure hypercholesterolemia, unspecified; G47.30 Sleep apnea, unspecified; E66.01 Morbid (severe) obesity due to excess calories; Z68.41 Body mass index [BMI] 40.0-44.9, adult; Z79.01 Long term (current) use of anticoagulants; Z79.84 Long term (current) use of oral hypoglycemic drugs; Z79.899 Other long term (current) drug therapy; Z88.8 Allergy status to other drugs, medicaments and biological substances
CPT/HCPCS: 64493; 64494; Q9967

== ENCOUNTER → 2018-10-12 | Outpatient (CLI) | payer MEDICARE, OTHER ==
[~2018-10-12] MED LIST changes: -ATOR1TAB21 PO; -BUPIVACAINE HCL 0.25% 30 ML VIAL As Ordered ONE; -CITRTAB18 PO; -FLINCHW PO; -ISOVUE-M 300 61% 15ML VIAL (Q9967) As Ordered ONE; -LIDOCAINE 1% SDV INJ 30 ML VIAL As Ordered ONE; -PREG50CA PO; -SENN8.6T17 PO; -VITA400C7 PO
--- NOTE | 2018-11-04 01:10 | ECWPNPC ---
PATIENT NAME: RUBÉN MARC : 1970 GENDER: MALE VISIT DATE: 10/12/2018 DISCHARGE DATE: 10/12/18 1016 VISIT LOCKED DATE TIME: PHYSICIAN: ISAIAH BENNETT RESOURCE: ISAIAH BENNETT REASON FOR APPOINTMENT 1. POST PROC HISTORY OF PRESENT ILLNESS DEPRESSION SCREENING: PHQ-2 IN LAST TWO WEEKS HAVE YOU BEEN BOTHERED BY LITTLE INTEREST OR PLEASURE IN DOING THINGSNO FEELING DOWN, DEPRESSED, OR HOPELESSNO HISTORY OF PRESENT ILLNESS: HERE FOR POST PROCEDURE F/U.HAD L4/5-L5/[id number] BLOCK BILAT. ON 09-28-18.REPOTING >75% IMPROVEMENT X24H THEN PAIN RETURNED TO BASELINE.PAIN IS WORSE IN RIGHT LOW BACK.RATING PAIN VAS 8/10.DISCUSED RADIOFREQUENCY. PAIN THE PATIENT DESCRIBES THE PAIN... FALL RISK SCREENING: SCREENING :NO FALLS IN THE PAST YEAR CURRENT MEDICATIONS TAKING GABAPENTIN 600 MG TABLET TAKE 2 TABLETS BY MOUTH THREE TIMES A DAY ORAL TAKING CETIRIZINE HCL 10 MG TABLET TAKE ONE TABLET BY MOUTH EVERY DAY ORAL TAKING DOK 100 MG CAPSULE TAKE ONE CAPSULE BY MOUTH TWICE A DAY ORAL TAKING DULOXETINE HCL 60 MG CAPSULE DELAYED RELEASE PARTICLES TAKE ONE CAPSULE BY MOUTH TWICE A DAY ORAL TAKING CLOPIDOGREL BISULFATE 75 MG TABLET TAKE ONE TABLET BY MOUTH EVERY DAY ORAL TAKING FAMOTIDINE 20 MG TABLET TAKE ONE TABLET BY MOUTH EVERY 12 HOURS ORAL TAKING WELLBUTRIN XL 150 MG TABLET EXTENDED RELEASE 24 HOUR 1 TABLET IN THE MORNING ORALLY ONCE A DAY TAKING FLONASE 50 MCG/DOSE INHALER 1 SPRAY IN EACH NOSTRIL NASALLY ONCE A DAY TAKING METFORMIN 500MG ORAL BID TAKING ATORVASTATIN CALCIUM 20 MG TABLET 1 CAP ORALLY DAILY MEDICATION LIST REVIEWED AND RECONCILED WITH THE PATIENT PAST MEDICAL HISTORY SLEEP APNEA USES BIPAP GERD HIGH CHOLESTEROL HTN ON PLAVIX FOR VENOUS INSUFFICIENCY ALLERGIES MODAFINIL: ITCHING SURGICAL HISTORY RIGHT CARPAL TUNNEL 11/2016 BARIATRIC SURGERY 04/2017 LEFT CARPAL MARIEL / ELBOW 05/2017 SOCIAL HISTORY GENERAL: TOBACCO USE ARE YOU A:NONSMOKER ALCOHOL SCREENING DID YOU HAVE A DRINK CONTAINING ALCOHOL IN THE PAST YEAR?NO POINTS0 INTERPRETATIONNEGATIVE RECREATIONAL DRUG USE DRUG USE?NO CAFFEINE CAFFEINE USE?YES ORTHODOX [id number] PRESYBETERIAN LANGUAGE LANGUAGES SPOKEN:AUSTRALIAN LEARNING BARRIERS / SPECIAL NEEDS BARRIERS TO LEARNING?NO HEARING IMPAIRED?NO VISION IMPAIRED?YES :CORRECTIVE LENSES COGNITIVELY IMPAIRED?NO READINESS TO LEARN?YES LEARNING PREFERENCES?NO LEARNING CAPABILITIES PRESENT?YES EMOTIONAL BARRIERS?NO SPECIAL DEVICES?YES :CANE, WALKER, WHEELCHAIR DOMESTIC VIOLENCE DO YOU FEEL SAFE IN YOUR ENVIRONMENT?YES DIET: BARIATRIC. EXERCISE: NONE. MARITAL STATUS: SINGLE. OTHERS AT HOME: NONE. PAIN CLINIC PFS, CLERGY, PUBLIC HEALTH REFERRALS PFS REFERRAL NEEDED?NO CLERGY REFERRAL NEEDED?NO PUBLIC HEALTH REFERRAL NEEDED?NO WAS THE PROVIDER NOTIFIED OF ANY PERTINENT INFO?NO HAS THE PATIENT BEEN EDUCATED REGARDING HIS/HER PLAN OF CARE?YES HAS THE PATIENT BEEN EDUCATED REGARDING PAIN, THE RISK FOR PAIN, THE IMPORTANCE OF EFFECTIVE PAIN MANAGEMENT, AND THE PAIN ASSESSMENT PROCESS?YES ADVANCE DIRECTIVE ADVANCE DIRECTIVE DISCUSSED WITH PATIENT:YES HAS HCP BROTHER-MARYANNE MARC [phone] REVIEWED 01/20/18 1009 BV04/20/18 REVIEWED WITH PTRubén DOBSON WITH PATIENT 08/27/18 0906 JS. HOSPITALIZATION/MAJOR DIAGNOSTIC PROCEDURE SEE ABOVE REVIEW OF SYSTEMS REVIEWED BY: PROVIDER: ISAIAH SEARS . CONSTITUTIONAL: ANY CHANGE IN YOUR MEDICAL CONDITION? NO . CHILLS NO . FEVER NO . INFECTION: DO YOU HAVE NEW INFECTIONS? NO . DO YOU HAVE HISTORY OF MRSA? NO . MUSCULOSKELETAL: ANY NEW PATTERNS OF PAIN OR NUMBNESS? NO . GASTROENTEROLOGY: ANY NEW CHANGE IN BOWEL CONTROL? NO . GENITOURINARY: ANY NEW CHANGE IN BLADDER CONTROL? NO . IS THERE A CHANCE YOU COULD BE ? NO . HEMATOLOGY/LYMPH: DO YOU TAKE ANY BLOOD THINNERS? (FOR EXAMPLE- COUMADIN, PLAVIX, AGGRENOX, PLATEL, PRADAXA, OR XARELTO) YES, PLAVIX . WHEN WAS YOUR LAST DOSE? DATE: TIME: . NEUROLOGY: HAVE YOU FALLEN IN THE PAST 6 MONTHS? NO . ANY NEW EXTREMITY NUMBNESS OR WEAKNESS? NO . CARDIOLOGY: DO YOU HAVE A PACEMAKER OR DEFIBRILLATOR? NO . RESPIRATORY: HAVE YOU BEEN SICK IN THE PAST WEEK? NO . FEVER NO . FLU LIKE SYMPTOMS? NO . COUGH NO . INTEGUMENTARY: DO YOU HAVE ANY RASHES OR OPEN SORES? NO . ALLERGIC/IMMUNO: ARE YOU ALLERGIC TO SHELLFISH OR IV DYE? NO . ANY NEW ALLERGIES? NO . PSYCHIATRIC: DO YOU HAVE THOUGHTS OF HURTING YOURSELF OR SOMEONE ELSE? NO . ARE YOU ABUSED, NEGLECTED, OR IN AN UNSAFE ENVIRONMENT? NO . ENDOCRINOLOGY: ARE YOU DIABETIC? YES . OTHER: DO YOU NEED ANY PRESCRIPTIONS? NO . IF YES, PLEASE LIST: ____ . ANY NEW PROBLEMS WITH YOUR MEDICATIONS? YES, SOMETHING TO HELP PAIN INBETWEEN INJECTIONS, OR WHATEVER MIGHT BE THE NEXT STEP . WHEN DID YOU LAST EAT? ____ . WHEN DID YOU LAST DRINK? ____ . WHAT DID YOU LAST DRINK? ____ . NAME OF PERSON DRIVING YOU HOME? ____ . DO YOU HAVE ANY OTHER QUESTIONS OR CONCERNS NO . VITAL SIGNS WT 292.4 LBS, HT 69 IN, BMI 43.18 INDEX, BP 127/79 MM HG, HR 78 /MIN, RR 18 /MIN, TEMP 97.0 F, OXYGEN SAT % 99%, NA INITIALS AW 0851, REVIEWED BY: EM. EXAMINATION GENERAL EXAMINATION: GENERAL APPEARANCE:AWAKE,ALERT ,PLEAASANT . PSYCHAFFECT NORMAL . LUNGS:LUNG BALDERAS ARE CLEAR TO AUSCULTATION BILATERALLY. GOOD MOVEMENT OF AIR . HEART:S1, S2 IN A REGULAR RATE AND RHYTHM. NO SIGNIFICANT MURMURS, RUBS OR GALLOPS NOTED . ASSESSMENTS SPONDYLOSIS OF LUMBOSACRAL JOINT - M47.817 (PRIMARY) TREATMENT SPONDYLOSIS OF LUMBOSACRAL JOINT NOTES: RIGHT DIAGNOSTIC FACET BLOCK L4/5-L5/S1 #2STOP PLAVIX X7 DAYS SCHEDULE PROCEDURE DAY 8. PROCEDURE CODES FA211 ESTABILISHED PATIENT [facility] CHARGE DISPOSITION & COMMUNICATION FOLLOW UP POST (REASON: RIGHT DIAGNOSTIC FACET BLOCK L4/5-L5/S1 #2) ELECTRONICALLY SIGNED BY ORION GOMEZ ON 11/03/2018 AT 03:07 PM EST DISCLAIMER : THIS IS A VISIT SUMMARY EXTRACTED FROM THE [employer] CHART. IT IS NOT A COPY OF THE [employer] PROGRESS NOTE. MTDD
== END ==
LOC: M PAIN 09:00
PROVIDERS: ATTEND Nurse Practitioner Family
DX: M47.817 Spondylosis without myelopathy or radiculopathy, lumbosacral region (principal); G47.30 Sleep apnea, unspecified; K21.9 Gastro-esophageal reflux disease without esophagitis; E78.00 Pure hypercholesterolemia, unspecified; I10 Essential (primary) hypertension; I87.2 Venous insufficiency (chronic) (peripheral); Z79.02 Long term (current) use of antithrombotics/antiplatelets; Z79.84 Long term (current) use of oral hypoglycemic drugs; Z79.899 Other long term (current) drug therapy; Z98.84 Bariatric surgery status; Z88.8 Allergy status to other drugs, medicaments and biological substances

== ENCOUNTER → 2018-10-21 | Outpatient (CLI) | payer MEDICARE, OTHER ==
[~2018-10-21] MED LIST changes: +GABA600T PO; -GABA600T4 PO
[2018-10-21 11:14] LABS: ALBUMIN 3.9 GM/DL (3.2-5.2); ALT/SGPT 50 U/L (12-78); BILIRUBIN,DIRECT < 0.1 MG/DL (0.0-0.2); BILIRUBIN,TOTAL 0.4 MG/DL (0.2-1.0); CHOLESTEROL LEVEL 156 MG/DL (<200); CHOLESTEROL RISK RATIO 3.466 (<5); HDL CHOLESTEROL 45 MG/DL (>40); LDL CHOLESTEROL 61 MG/DL (<100); NON-HDL-C 111 MG/DL; TOTAL PROTEIN 7.6 GM/DL (6.4-8.2); TRIGLYCERIDES LEVEL 248 MG/DL (<150)
[2018-10-21 11:16] LABS: HEMOGLOBIN A1c 7.1 %
== END ==
LOC: M LAB 09:58
PROVIDERS: ATTEND Internal Medicine Gastroenterology
DX: E66.9 Obesity, unspecified (principal); R94.5 Abnormal results of liver function studies

== ENCOUNTER → 2018-11-17 | Outpatient (CLI) | payer MEDICARE ==
[~2018-11-17] MED LIST changes: +ATOR1TAB21 PO; +BUPIVACAINE HCL 0.25% 30 ML VIAL As Ordered ONE; +CITRTAB18 PO; +FLINCHW PO; -GABA600T PO; +GABA600T4 PO; +ISOVUE-M 300 61% 15ML VIAL (Q9967) As Ordered ONE; +LIDOCAINE 1% SDV INJ 30 ML VIAL As Ordered ONE; +PREG50CA PO; +SENN8.6T17 PO; +VITA400C7 PO
--- NOTE | 2018-11-17 10:34 | REP ---
Partial lumbar spine series: Two views . History: Injection procedure for pain. 25 seconds of fluoroscopy time is reported. Findings: A sequence of two fluoroscopically obtained last image hold procedural spot radiographs of the lumbar spine document needle position and contrast injection associated with injection procedure. Electronically Signed by Leroy Obando MD 11/17/2018 10:25 A
--- NOTE | 2018-12-06 00:39 | ECWPNPC ---
PATIENT NAME: RUBÉN MARC : 1970 GENDER: MALE VISIT DATE: 11/17/2018 DISCHARGE DATE: 11/17/18958 VISIT LOCKED DATE TIME: PHYSICIAN: YOANA MENDOZA MD RESOURCE: YOANA MENDOZA MD REASON FOR APPOINTMENT 1. RIGHT DIAGNOSTIC FACET BLOCK L4/5-L5/S1 #2 HISTORY OF PRESENT ILLNESS HISTORY OF PRESENT ILLNESS: PAIN THE PATIENT DESCRIBES THE PAIN... FALL RISK SCREENING: SCREENING :NO FALLS IN THE PAST YEAR CURRENT MEDICATIONS TAKING CETIRIZINE HCL 10 MG TABLET TAKE ONE TABLET BY MOUTH EVERY DAY ORAL , NOTES: 11/16/18@0800 TAKING DOK 100 MG CAPSULE TAKE ONE CAPSULE BY MOUTH TWICE A DAY ORAL , NOTES: 11/16/18 TAKING DULOXETINE HCL 60 MG CAPSULE DELAYED RELEASE PARTICLES TAKE ONE CAPSULE BY MOUTH TWICE A DAY ORAL , NOTES: 11/16/18 TAKING CLOPIDOGREL BISULFATE 75 MG TABLET TAKE ONE TABLET BY MOUTH EVERY DAY ORAL , NOTES: 11/09/18@0800 TAKING FAMOTIDINE 20 MG TABLET TAKE ONE TABLET BY MOUTH EVERY 12 HOURS ORAL , NOTES: 11/16/18 TAKING WELLBUTRIN XL 150 MG TABLET EXTENDED RELEASE 24 HOUR 1 TABLET IN THE MORNING ORALLY ONCE A DAY, NOTES: 11/16/180800 TAKING FLONASE 50 MCG/DOSE INHALER 1 SPRAY IN EACH NOSTRIL NASALLY ONCE A DAY, NOTES: NONE RECENTLY TAKING METFORMIN 500MG ORAL BID, NOTES: 11/16/18 TAKING ATORVASTATIN CALCIUM 20 MG TABLET 1 CAP ORALLY DAILY, NOTES: 11/16/18@0800 TAKING LYRICA 50 MG CAPSULE 1 CAPSULE ORALLY TWICE A DAY, NOTES: 11/16/18 DISCONTINUED GABAPENTIN 600 MG TABLET TAKE 2 TABLETS BY MOUTH THREE TIMES A DAY ORAL MEDICATION LIST REVIEWED AND RECONCILED WITH THE PATIENT PAST MEDICAL HISTORY SLEEP APNEA USES BIPAP GERD HIGH CHOLESTEROL 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 SOCIAL HISTORY GENERAL: TOBACCO USE ARE YOU A:NONSMOKER ALCOHOL SCREENING DID YOU HAVE A DRINK CONTAINING ALCOHOL IN THE PAST YEAR?NO POINTS0 INTERPRETATIONNEGATIVE RECREATIONAL DRUG USE DRUG USE?NO CAFFEINE CAFFEINE USE?YES [id number] YARSANISM LANGUAGE LANGUAGES SPOKEN:GREEK LEARNING BARRIERS / SPECIAL NEEDS BARRIERS TO LEARNING?NO HEARING IMPAIRED?NO VISION IMPAIRED?YES :CORRECTIVE LENSES COGNITIVELY IMPAIRED?NO READINESS TO LEARN?YES LEARNING PREFERENCES?NO LEARNING CAPABILITIES PRESENT?YES EMOTIONAL BARRIERS?NO SPECIAL DEVICES?YES :CANE, WALKER, WHEELCHAIR DOMESTIC VIOLENCE DO YOU FEEL SAFE IN YOUR ENVIRONMENT?YES DIET: BARIATRIC. EXERCISE: NONE. MARITAL STATUS: SINGLE. OTHERS AT HOME: NONE. PAIN CLINIC PFS, CLERGY, PUBLIC HEALTH REFERRALS PFS REFERRAL NEEDED?NO CLERGY REFERRAL NEEDED?NO PUBLIC HEALTH REFERRAL NEEDED?NO WAS THE PROVIDER NOTIFIED OF ANY PERTINENT INFO?NO HAS THE PATIENT BEEN EDUCATED REGARDING HIS/HER PLAN OF CARE?YES HAS THE PATIENT BEEN EDUCATED REGARDING PAIN, THE RISK FOR PAIN, THE IMPORTANCE OF EFFECTIVE PAIN MANAGEMENT, AND THE PAIN ASSESSMENT PROCESS?YES ADVANCE DIRECTIVE ADVANCE DIRECTIVE DISCUSSED WITH PATIENT:YES HAS HCP BROTHER-MARYANNE MARC [phone] REVIEWED 01/20/18 1009 BV04/20/18 REVIEWED WITH PT. DOBSON WITH PATIENT 08/27/18 0906 JS. HOSPITALIZATION/MAJOR DIAGNOSTIC PROCEDURE SEE ABOVE REVIEW OF SYSTEMS REVIEWED BY: PROVIDER: . CONSTITUTIONAL: ANY CHANGE IN YOUR MEDICAL CONDITION? NO . CHILLS NO . FEVER NO . INFECTION: DO YOU HAVE NEW INFECTIONS? NO . DO YOU HAVE HISTORY OF MRSA? NO . MUSCULOSKELETAL: ANY NEW PATTERNS OF PAIN OR NUMBNESS? NO . GASTROENTEROLOGY: ANY NEW CHANGE IN BOWEL CONTROL? NO . GENITOURINARY: ANY NEW CHANGE IN BLADDER CONTROL? NO . IS THERE A CHANCE YOU COULD BE ? NO . HEMATOLOGY/LYMPH: DO YOU TAKE ANY BLOOD THINNERS? (FOR EXAMPLE- COUMADIN, PLAVIX, AGGRENOX, PLATEL, PRADAXA, OR XARELTO) NO . WHEN WAS YOUR LAST DOSE? DATE: TIME: . NEUROLOGY: HAVE YOU FALLEN IN THE PAST 12 MONTHS? NO . ANY NEW EXTREMITY NUMBNESS OR WEAKNESS? NO . CARDIOLOGY: DO YOU HAVE A PACEMAKER OR DEFIBRILLATOR? NO . RESPIRATORY: HAVE YOU BEEN SICK IN THE PAST WEEK? NO . FEVER NO . FLU LIKE SYMPTOMS? NO . COUGH NO . INTEGUMENTARY: DO YOU HAVE ANY RASHES OR OPEN SORES? NO . ALLERGIC/IMMUNO: ARE YOU ALLERGIC TO IV DYE? NO . ANY NEW ALLERGIES? NO . PSYCHIATRIC: DO YOU HAVE THOUGHTS OF HURTING YOURSELF OR SOMEONE ELSE? NO . ARE YOU ABUSED, NEGLECTED, OR IN AN UNSAFE ENVIRONMENT? NO . ENDOCRINOLOGY: ARE YOU DIABETIC? NO . OTHER: DO YOU NEED ANY PRESCRIPTIONS? NO . IF YES, PLEASE LIST: ____ . ANY NEW PROBLEMS WITH YOUR MEDICATIONS? NO . WHEN DID YOU LAST EAT? ____11/16/18@1800 <____11/16/18@1800> . WHEN DID YOU LAST DRINK? ____11/16/18@2100 <____11/16/18@2100> . WHAT DID YOU LAST DRINK? ____WATER . NAME OF PERSON DRIVING YOU HOME? ____MARYANNE MARC . DO YOU HAVE ANY OTHER QUESTIONS OR CONCERNS NO . VITAL SIGNS WT 287.8 LBS, HT 69 IN, BMI 42.50 INDEX, BP 136/83 MM HG, HR 73 /MIN, RR 18 /MIN, TEMP 97.3 F, OXYGEN SAT % 99%, SAFE IN ENV? (Y/N) Y, NA INITIALS SC 08:51, REVIEWED BY: VD. ASSESSMENTS SPONDYLOSIS OF LUMBAR REGION WITHOUT MYELOPATHY OR RADICULOPATHY - M47.816 (PRIMARY) SPONDYLOSIS OF LUMBOSACRAL REGION WITHOUT MYELOPATHY OR RADICULOPATHY - M47.817 PROCEDURES PN LUMBAR FACET BLOCK DIAGNOSTIC PRE PROCEDURE DIAGNOSIS LUMBAR SPONDYLOSIS, LUMBOSACRAL SPONDYLOSIS POST PROCEDURE DIAGNOSIS LUMBAR SPONDYLOSIS, LUMBOSACRAL SPONDYLOSIS PROCEDURE RIGHT L4-L5 AND RIGHT L5-S1 FACET BLOCK DIAGNOSTIC NUMBER [address] YOANA MENDOZA FRONT OFFICE ADMINISTRATOR NONE ANESTHESIA LOCAL PRE PROCEDURE NOTE THE PATIENT WITH HISTORY OF CHRONIC LOW BACK PAIN. I EVALUATED THE PATIENT AND REVIEWED THE CHART. I WENT OVER THE RISKS, ALTERNATIVES, AND BENEFITS ASSOCIATED WITH THIS PROCEDURE. THE PATIENT WOULD LIKE TO PROCEED AND GAVE CONSENT TO PERFORM THE PROCEDURE. AGREED WITH THE PATIENT WE ARE DOING THIS PROCEDURE TO DETERMINE IF THE PATIENT IS A CANDIDATE FOR A RADIOFREQUENCY ABLATION OF THE FACETS JOINTS. THE PATIENT DENIES UNEXPLAINABLE WEIGHT LOSS, FEVER, CHILLS, OR NEW CHANGES IN URINARY OR BOWEL CONTROL DESCRIPTION OF PROCEDURE THE PATIENT WAS BROUGHT TO THE PROCEDURE ROOM AND PLACED IN THE PRONE POSITION. THE LUMBOSACRAL AREA WAS CLEANED WITH CHLORAPREP SOLUTION AND DRAPED ASEPTICALLY. THE PROCEDURE WAS DONE UNDER STERILE CONDITIONS. I CHECKED LATERALITY AND THE LEVEL WHERE THE PROCEDURE WAS GOING TO BE PERFORMED WITH THE PATIENT AND THE SUPPORTING STAFF AT THE MOMENT OF THE TIME OUT IN THE PROCEDURE ROOM. UNDER FLUOROSCOPIC GUIDANCE, TARGETS WERE SELECTED AT THE INTERSECTION OF THE RIGHT TRANSVERSE PROCESS OF L4, L5 AND ALA OF S1 WITH ITS RESPECTIVE SUPERIOR ARTICULAR PROCESS. LIDOCAINE WAS USED TO NUMB THE SKIN AND THE SUBCUTANEOUS TISSUE BELOW IT. SPINAL NEEDLE, 22-GAUGE WAS ADVANCED UNDER FLUOROSCOPIC GUIDANCE AND FOLLOWING PATIENT FEEDBACK UNTIL THE TARGETS WERE REACHED. POSITION OF THE NEEDLES WAS VERIFIED WITH AP AND LATERAL VIEWS. AFTER PROPER POSITION OF THE NEEDLES WAS ACHIEVED, ISOVUE-M DYE 30% 0.1 ML WAS INJECTED AT EACH SITE SHOWING ADEQUATE SPREAD OF THE DYE. THEN A SOLUTION OF 0.4 ML OF BUPIVACAINE 0.25% WAS INJECTED AT EACH SITE. THERE WAS NO EVIDENCE OF BLOOD, PARESTHESIA OR CEREBROSPINAL FLUID DURING THE PROCEDURE. THE PATIENT WAS SENT TO THE RECOVERY ROOM. THE PATIENT WAS MOVING THE EXTREMITIES AND DOING WELL. THERE WAS NO COMPLICATION DURING THE PROCEDURE. FLUOROSCOPY TIME WAS 25 SECONDS POST PROCEDURE NOTE THE PATIENT WILL DOCUMENT HIS PAIN LEVEL AND RESPONSE TO THIS PROCEDURE EVERY 30 MINUTES. THE PATIENT WILL BE SEEN IN A FOLLOW UP IN THE NEXT FEW WEEKS. FURTHER DETERMINATION FOR HIS CASE WILL BE DONE AT THE NEXT VISIT. INSTRUCTIONS WERE GIVEN, QUESTIONS WERE ANSWERED, AND THE PATIENT EXPRESSED UNDERSTANDING AND AGREED WITH THE PLAN. I, RANDY LOVE, DOCUMENTED THE ABOVE INFORMATION ACTING A SCRIBE FOR DR. MENDOZA. I HAVE REVIEWED THE ABOVE DOCUMENT, WRITTEN BY RANDY RAUSCHIBNaveed AND I VERIFY THAT IT IS ACCURATE. DIAGNOSTIC IMAGING [facility] FACET BLOCK (PAIN)[id number] PROCEDURE CODES 6045F RADXPS IN END [id number] PXD 69506 INJ PARAVERT F JNT L/S 1 LEV, MODIFIERS: [place] [address] INJ PARAVERT F JNT L/S 2 LEV, MODIFIERS: RT DISPOSITION & COMMUNICATION FOLLOW UP 3 WEEKS ELECTRONICALLY SIGNED BY YOANA MENDOZA MD, MD ON 12/05/2018 AT 05:12 PM EST DISCLAIMER : THIS IS A VISIT SUMMARY EXTRACTED FROM THE [employer] CHART. IT IS NOT A COPY OF THE [employer] PROGRESS NOTE. MTDD
== END ==
LOC: M PAIN 08:30
PROVIDERS: ATTEND Anesthesiology
DX: G89.29 Other chronic pain (principal); M47.816 Spondylosis without myelopathy or radiculopathy, lumbar region; M47.817 Spondylosis without myelopathy or radiculopathy, lumbosacral region; I10 Essential (primary) hypertension; E78.00 Pure hypercholesterolemia, unspecified; G47.30 Sleep apnea, unspecified; E66.01 Morbid (severe) obesity due to excess calories; Z68.41 Body mass index [BMI] 40.0-44.9, adult; Z79.84 Long term (current) use of oral hypoglycemic drugs; Z79.899 Other long term (current) drug therapy; Z88.8 Allergy status to other drugs, medicaments and biological substances; Z86.79 Personal history of other diseases of the circulatory system; Z98.84 Bariatric surgery status
CPT/HCPCS: 64493; 64494; Q9967

== ENCOUNTER → 2018-12-28 | Outpatient (CLI) | payer MEDICARE ==
[~2018-12-28] MED LIST changes: -BUPIVACAINE HCL 0.25% 30 ML VIAL As Ordered ONE; -ISOVUE-M 300 61% 15ML VIAL (Q9967) As Ordered ONE; -LIDOCAINE 1% SDV INJ 30 ML VIAL As Ordered ONE
--- NOTE | 2019-01-07 01:27 | ECWPNPC ---
PATIENT NAME: RUBÉN MARC : 1970 GENDER: MALE VISIT DATE: 12/28/2018 DISCHARGE DATE: 12/28/18 1027 VISIT LOCKED DATE TIME: PHYSICIAN: ISAIAH BENNETT RESOURCE: ISAIAH BENNETT REASON FOR APPOINTMENT 1. POST PROC HISTORY OF PRESENT ILLNESS HISTORY OF PRESENT ILLNESS: HERE FOR POST PROCEDURE F/U.HAD RIGHT L4/5-L5/S1 DIAGNOSTIC BLOCK #2 ON 11-17-18.REPOTING >75% IMPROVEMENT X24H THEN PAIN RETURNED TO BASELINE.PAIN IS WORSE IN RIGHT LOW BACK.RATING PAIN VAS 8/10.DISCUSSED RADIOFREQUENCY. PAIN THE PATIENT DESCRIBES THE PAIN... THE PATIENT DESCRIBES THE PAIN... FALL RISK SCREENING: SCREENING : NO FALLS IN THE PAST YEAR. CURRENT MEDICATIONS TAKING CETIRIZINE HCL 10 MG TABLET TAKE ONE TABLET BY MOUTH EVERY DAY ORAL TAKING DOK 100 MG CAPSULE TAKE ONE CAPSULE BY MOUTH TWICE A DAY ORAL TAKING DULOXETINE HCL 60 MG CAPSULE DELAYED RELEASE PARTICLES TAKE ONE CAPSULE BY MOUTH TWICE A DAY ORAL TAKING CLOPIDOGREL BISULFATE 75 MG TABLET TAKE ONE TABLET BY MOUTH EVERY DAY ORAL TAKING FAMOTIDINE 20 MG TABLET TAKE ONE TABLET BY MOUTH EVERY 12 HOURS ORAL TAKING WELLBUTRIN XL 150 MG TABLET EXTENDED RELEASE 24 HOUR 1 TABLET IN THE MORNING ORALLY ONCE A DAY TAKING FLONASE 50 MCG/DOSE INHALER 1 SPRAY IN EACH NOSTRIL NASALLY ONCE A DAY TAKING METFORMIN 500MG ORAL BID TAKING ATORVASTATIN CALCIUM 20 MG TABLET 1 CAP ORALLY DAILY TAKING LYRICA 50 MG CAPSULE 1 CAPSULE ORALLY TWICE A DAY MEDICATION LIST REVIEWED AND RECONCILED WITH THE PATIENT PAST MEDICAL HISTORY SLEEP APNEA USES BIPAP GERD HIGH CHOLESTEROL 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 SOCIAL HISTORY GENERAL: TOBACCO USE ARE YOU A:NONSMOKER ALCOHOL SCREENING DID YOU HAVE A DRINK CONTAINING ALCOHOL IN THE PAST YEAR?NO POINTS0 INTERPRETATIONNEGATIVE RECREATIONAL DRUG USE DRUG USE?NO CAFFEINE CAFFEINE USE?YES YARSANI [id number] [employer] LANGUAGE LANGUAGES SPOKEN:BRUNEIAN LEARNING BARRIERS / SPECIAL NEEDS BARRIERS TO LEARNING?NO HEARING IMPAIRED?NO VISION IMPAIRED?YES :CORRECTIVE LENSES COGNITIVELY IMPAIRED?NO READINESS TO LEARN?YES LEARNING PREFERENCES?NO LEARNING CAPABILITIES PRESENT?YES EMOTIONAL BARRIERS?NO SPECIAL DEVICES?YES :CANE, WALKER, WHEELCHAIR DOMESTIC VIOLENCE DO YOU FEEL SAFE IN YOUR ENVIRONMENT?YES DIET: BARIATRIC. EXERCISE: NONE. MARITAL STATUS: SINGLE. OTHERS AT HOME: NONE. PAIN CLINIC PFS, CLERGY, PUBLIC HEALTH REFERRALS PFS REFERRAL NEEDED?NO CLERGY REFERRAL NEEDED?NO PUBLIC HEALTH REFERRAL NEEDED?NO WAS THE PROVIDER NOTIFIED OF ANY PERTINENT INFO?NO HAS THE PATIENT BEEN EDUCATED REGARDING HIS/HER PLAN OF CARE?YES HAS THE PATIENT BEEN EDUCATED REGARDING PAIN, THE RISK FOR PAIN, THE IMPORTANCE OF EFFECTIVE PAIN MANAGEMENT, AND THE PAIN ASSESSMENT PROCESS?YES ADVANCE DIRECTIVE ADVANCE DIRECTIVE DISCUSSED WITH PATIENT:YES HAS HCP BROTHER-MARYANNE MARC [phone] REVIEWED 01/20/18 1009 BV04/20/18 REVIEWED WITH PTRubén DOBSON WITH PATIENT 08/27/18 0906 JS. HOSPITALIZATION/MAJOR DIAGNOSTIC PROCEDURE SEE ABOVE REVIEW OF SYSTEMS REVIEWED BY: PROVIDER: ISAIAH SEARS . CONSTITUTIONAL: ANY CHANGE IN YOUR MEDICAL CONDITION? NO . CHILLS NO . FEVER NO . INFECTION: DO YOU HAVE NEW INFECTIONS? NO . DO YOU HAVE HISTORY OF MRSA? NO . MUSCULOSKELETAL: ANY NEW PATTERNS OF PAIN OR NUMBNESS? NO . GASTROENTEROLOGY: ANY NEW CHANGE IN BOWEL CONTROL? NO . GENITOURINARY: ANY NEW CHANGE IN BLADDER CONTROL? NO . IS THERE A CHANCE YOU COULD BE ? NO . HEMATOLOGY/LYMPH: DO YOU TAKE ANY BLOOD THINNERS? (FOR EXAMPLE- COUMADIN, PLAVIX, AGGRENOX, PLATEL, PRADAXA, OR XARELTO) YES, PLAVIX . WHEN WAS YOUR LAST DOSE? DATE: TIME: . NEUROLOGY: HAVE YOU FALLEN IN THE PAST 12 MONTHS? NO . ANY NEW EXTREMITY NUMBNESS OR WEAKNESS? NO . CARDIOLOGY: DO YOU HAVE A PACEMAKER OR DEFIBRILLATOR? NO . RESPIRATORY: HAVE YOU BEEN SICK IN THE PAST WEEK? NO . FEVER NO . FLU LIKE SYMPTOMS? NO . COUGH NO . INTEGUMENTARY: DO YOU HAVE ANY RASHES OR OPEN SORES? NO . ALLERGIC/IMMUNO: ARE YOU ALLERGIC TO IV DYE? NO . ANY NEW ALLERGIES? NO . PSYCHIATRIC: DO YOU HAVE THOUGHTS OF HURTING YOURSELF OR SOMEONE ELSE? NO . ARE YOU ABUSED, NEGLECTED, OR IN AN UNSAFE ENVIRONMENT? NO . ENDOCRINOLOGY: ARE YOU DIABETIC? YES . OTHER: DO YOU NEED ANY PRESCRIPTIONS? NO . IF YES, PLEASE LIST: ____ . ANY NEW PROBLEMS WITH YOUR MEDICATIONS? NO . WHEN DID YOU LAST EAT? ____ . WHEN DID YOU LAST DRINK? ____ . WHAT DID YOU LAST DRINK? ____ . NAME OF PERSON DRIVING YOU HOME? ____ . DO YOU HAVE ANY OTHER QUESTIONS OR CONCERNS NO . VITAL SIGNS WT 287.2 LBS, HT 69 IN, BMI 42.41 INDEX, BP 125/74 MM HG, HR 69 /MIN, RR 18 /MIN, TEMP 96.1 F, OXYGEN SAT % 99%, NA INITIALS SC 09:47, REVIEWED BY: EM. EXAMINATION GENERAL EXAMINATION: GENERAL APPEARANCE:AWAKE,ALERT ,PLEAASANT . PSYCHAFFECT NORMAL . LUNGS:LUNG BALDERAS ARE CLEAR TO AUSCULTATION BILATERALLY. GOOD MOVEMENT OF AIR . HEART:S1, S2 IN A REGULAR RATE AND RHYTHM. NO SIGNIFICANT MURMURS, RUBS OR GALLOPS NOTED . LUMBAR SACRAL SPINEPALPATION:TENDER OVER BILAT. L4/5-L5/S1 LUMBAR FACETS WITH FACET LOADING RIGHT >LEFT INCREASED PAIN NOTED WITH EXTENSION OF SPINE. DIAGNOSTIC:MRI L/S SPINE-06/11/17. ASSESSMENTS SPONDYLOSIS OF LUMBOSACRAL JOINT - M47.817 (PRIMARY) TREATMENT SPONDYLOSIS OF LUMBOSACRAL JOINT NOTES: RIGHT L4/5-L5/S1 RADIOFREQUENCY. PROCEDURE CODES FA211 ESTABILISHED PATIENT [facility] FACILITY CHARGE DISPOSITION & COMMUNICATION FOLLOW UP POST (REASON: RIGHT L4/5-L5/S1 RADIOFREQUENCY) ELECTRONICALLY SIGNED BY ORION GOMEZ ON 01/06/2019 AT 04:28 PM EST DISCLAIMER : THIS IS A VISIT SUMMARY EXTRACTED FROM THE [employer] CHART. IT IS NOT A COPY OF THE [employer] PROGRESS NOTE. LISA
== END ==
LOC: M PAIN 09:45
PROVIDERS: ATTEND Nurse Practitioner Family
DX: M47.817 Spondylosis without myelopathy or radiculopathy, lumbosacral region (principal); I10 Essential (primary) hypertension; E78.00 Pure hypercholesterolemia, unspecified; G47.30 Sleep apnea, unspecified; I87.2 Venous insufficiency (chronic) (peripheral); E66.01 Morbid (severe) obesity due to excess calories; Z68.41 Body mass index [BMI] 40.0-44.9, adult; Z79.01 Long term (current) use of anticoagulants; Z79.84 Long term (current) use of oral hypoglycemic drugs; Z79.899 Other long term (current) drug therapy; Z88.8 Allergy status to other drugs, medicaments and biological substances; Z98.84 Bariatric surgery status

== ENCOUNTER 2019-01-03 08:48 | Day surgery (SDC) | payer MEDICARE ==
[~2019-01-03] VITALS: Ht 175.3 cm; Wt 130.2 kg
[~2019-01-03 08:48] MED LIST changes: +NS 1,000 ML IV ONE
[2019-01-03] MEDS ORDERED: PROPOFOL 500 MG/50 ML VIAL As Ordered ONE (09:21)
[2019-01-03] MEDS ORDERED: LIDOCAINE 2% INJ 100 MG/5 ML SDV (FOR ANES.) As Ordered ONE (09:23)
[2019-01-03 10:55] VITALS: BP 127/70
--- NOTE | 2019-01-03 11:10 | ROOR ---
Patient Name: Raysa Nayak Procedure Date: 01/03/2019 10:06 AM Date of : 1970 Age: 48 Room: [facility] Gender: Male Note Status: Finalized Procedure: Upper GI endoscopy Indications: Dyspepsia Providers: Jairo Phillips MD Referring MD: LOUISE CANELA MD Requesting Provider: Medicines: Monitored Anesthesia Care Complications: No immediate complications. Estimated blood loss: None. Procedure: Pre-Anesthesia Assessment: - Prior to the procedure, a History and Physical was performed, and patient medications and allergies were reviewed. The patient is competent. The risks and benefits of the procedure and the sedation options and risks were discussed with the patient. All questions were answered and informed consent was obtained. Patient identification and proposed procedure were verified by the physician, the nurse and the anesthesiologist in the procedure room. Mental Status Examination: alert and oriented. Airway Examination: normal oropharyngeal airway and neck mobility. Respiratory Examination: clear to auscultation. CV Examination: normal. Prophylactic Antibiotics: The patient does not require prophylactic antibiotics. Prior Anticoagulants: The patient has taken no previous anticoagulant or antiplatelet agents. ASA Grade Assessment: III - A patient with severe systemic disease. After reviewing the risks and benefits, the patient was deemed in satisfactory condition to undergo the procedure. The anesthesia plan was to use monitored anesthesia care (MAC). Immediately prior to administration of medications, the patient was re-assessed for adequacy to receive sedatives. The heart rate, respiratory rate, oxygen saturations, blood pressure, adequacy of pulmonary ventilation, and response to care were monitored throughout the procedure. The physical status of the patient was re-assessed after the procedure. The Endoscope was introduced through the mouth, and advanced to the afferent and efferent jejunal loops. The upper GI endoscopy was accomplished without difficulty. The patient tolerated the procedure well. Findings: The Z-line was regular and was found in the distal esophagus. 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 The gastrojejunal anastomosis was characterized by inflammation, ulceration and an intact staple line. This was traversed. The jejunojejunal anastomosis was characterized by congestion. The feqtjqde-qm-xhmblxy limb was not examined as it could not be found. Biopsies were taken with a cold forceps for histology. Two biopsies were obtained in the gastric fundus with cold forceps for Helicobacter pylori testing. Verification of patient identification for the specimen was done by the physician and nurse using the patient's name, date and medical record number. Estimated blood loss was minimal. The examined jejunum was normal. Biopsies for histology were taken with a cold forceps for evaluation of celiac disease. Impression: - Z-line regular, in the distal esophagus. 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 Biopsied. - Normal examined jejunum. Biopsied. - Two biopsies were obtained in the gastric fundus. Recommendation: - Patient has a contact number available for emergencies. The signs and symptoms of potential delayed complications were discussed with the patient. Return to normal activities tomorrow. Written discharge instructions were provided to the patient. - Resume previous diet. - Use Protonix (pantoprazole) 40 mg PO daily - to be taken grant coordinator 1/2 hour before breakfast for 8 weeks. - Follow an antireflux regimen. - Await pathology results. - Based on the biopsy results you will receive a phone call from GI clinic in 2-3 weeks to review the pathology results AND/OR your results will be faxed to your Primary care physician. - Return to primary care physician. Jairo Phillips MD Jairo Phillips MD 01/03/2019 11:10:34 AM This report has been signed electronically. Number of Addenda: 0 Note Initiated On: 01/03/2019 10:06 AM Estimated Blood Loss: Estimated blood loss was minimal.
--- NOTE | 2019-01-03 11:14 | ROOR ---
Patient Name: Raysa Nayak Procedure Date: 01/03/2019 10:06 AM Date of : 1970 Age: 48 Room: [facility] Gender: Male Note Status: Finalized Procedure: Colonoscopy Indications: Screening for colorectal malignant neoplasm Providers: Jairo Phillips MD Referring MD: LOUISE CANELA MD Requesting Provider: Medicines: Monitored Anesthesia Care Complications: No immediate complications. Procedure: Pre-Anesthesia Assessment: - Prior to the procedure, a History and Physical was performed, and patient medications and allergies were reviewed. The patient is competent. The risks and benefits of the procedure and the sedation options and risks were discussed with the patient. All questions were answered and informed consent was obtained. Patient identification and proposed procedure were verified by the physician, the nurse and the anesthesiologist in the procedure room. Mental Status Examination: alert and oriented. Airway Examination: normal oropharyngeal airway and neck mobility. Respiratory Examination: clear to auscultation. CV Examination: normal. Prophylactic Antibiotics: The patient does not require prophylactic antibiotics. Prior Anticoagulants: The patient has taken no previous anticoagulant or antiplatelet agents. ASA Grade Assessment: III - A patient with severe systemic disease. After reviewing the risks and benefits, the patient was deemed in satisfactory condition to undergo the procedure. The anesthesia plan was to use monitored anesthesia care (MAC). Immediately prior to administration of medications, the patient was re-assessed for adequacy to receive sedatives. The heart rate, respiratory rate, oxygen saturations, blood pressure, adequacy of pulmonary ventilation, and response to care were monitored throughout the procedure. The physical status of the patient was re-assessed after the procedure. The Colonoscope was introduced through the anus with the intention of advancing to the cecum. The scope was advanced to the sigmoid colon before the procedure was aborted. Medications were given. The colonoscopy was performed without difficulty. The patient tolerated the procedure well. The quality of the bowel preparation was poor and unsatisfactory. No anatomical landmarks were photographed. Scope insertion time was 2 minutes. Scope withdrawal time was 1 minute. The total duration of the procedure was 3 minutes. Findings: The perianal and digital rectal examinations were normal. Copious quantities of semi-solid stool was found from rectum to sigmoid colon, precluding visualization. Lavage of the area was performed using a large amount of sterile water, resulting in incomplete clearance with continued poor visualization. Impression: - Preparation of the colon was poor. - Preparation of the colon was unsatisfactory. - Stool from rectum to sigmoid colon. - No specimens collected. Recommendation: - Patient has a contact number available for emergencies. The signs and symptoms of potential delayed complications were discussed with the patient. Return to normal activities tomorrow. Written discharge instructions were provided to the patient. - Resume previous diet. - Continue present medications. - Repeat colonoscopy at next available appointment (within 3 months) because the bowel preparation was poor. - Telephone GI clinic to schedule appointment in 2 weeks. - Return to primary care physician. Jairo Phillips MD Jairo Phillips MD 01/03/2019 11:13:49 AM This report has been signed electronically. Number of Addenda: 0 Note Initiated On: 01/03/2019 10:06 AM Estimated Blood Loss: Estimated blood loss: none.
== END 2019-01-03 11:23 | disposition home or self-care (01) ==
LOC: M OPP 08:48
PROVIDERS: ATTEND Internal Medicine Gastroenterology
DX: Z12.11 Encounter for screening for malignant neoplasm of colon (principal); Z98.0 Intestinal bypass and anastomosis status; R10.13 Epigastric pain; G47.30 Sleep apnea, unspecified; Z79.84 Long term (current) use of oral hypoglycemic drugs; Z79.899 Other long term (current) drug therapy; Z88.8 Allergy status to other drugs, medicaments and biological substances; J30.2 Other seasonal allergic rhinitis; Z98.84 Bariatric surgery status
CPT/HCPCS: 43239; 88305; G0121

== ENCOUNTER → 2019-01-24 | Outpatient (CLI) | payer MEDICARE ==
[~2019-01-24] MED LIST changes: +AMIT50TA PO; +FLUTISP; +GLIM1TAB PO; -NS 1,000 ML IV ONE
--- NOTE | 2019-02-05 00:07 | ECWPNPC ---
PATIENT NAME: RUBÉN MARC : 1970 GENDER: MALE VISIT DATE: 01/24/2019 DISCHARGE DATE: 01/24/19 1332 VISIT LOCKED DATE TIME: PHYSICIAN: ISAIAH BENNETT RESOURCE: ISAIAH BENNETT REASON FOR APPOINTMENT 1. FOLLOW UP- RF WAS DENIED HISTORY OF PRESENT ILLNESS HISTORY OF PRESENT ILLNESS: HERE FOR F/U OF CHRONIC LOW BACK PAIN.HE IS RATING PAIN VAS 8/10.PAIN IS DESCRIBED CONTINUOUS,SHARP AND STABBING.WORSE AREA OF PAIN IS RIGHT LOW BACK. PAIN THE PATIENT DESCRIBES THE PAIN... FALL RISK SCREENING: SCREENING :NO FALLS REPORTED IN THE LAST YEAR CURRENT MEDICATIONS TAKING CETIRIZINE HCL 10 MG TABLET TAKE ONE TABLET BY MOUTH EVERY DAY ORAL TAKING DOK 100 MG CAPSULE TAKE ONE CAPSULE BY MOUTH TWICE A DAY ORAL TAKING DULOXETINE HCL 60 MG CAPSULE DELAYED RELEASE PARTICLES TAKE ONE CAPSULE BY MOUTH TWICE A DAY ORAL TAKING CLOPIDOGREL BISULFATE 75 MG TABLET TAKE ONE TABLET BY MOUTH EVERY DAY ORAL TAKING FAMOTIDINE 20 MG TABLET TAKE ONE TABLET BY MOUTH EVERY 12 HOURS ORAL TAKING WELLBUTRIN XL 150 MG TABLET EXTENDED RELEASE 24 HOUR 1 TABLET IN THE MORNING ORALLY ONCE A DAY TAKING FLONASE 50 MCG/DOSE INHALER 1 SPRAY IN EACH NOSTRIL NASALLY ONCE A DAY TAKING METFORMIN 500MG ORAL BID TAKING ATORVASTATIN CALCIUM 20 MG TABLET 1 CAP ORALLY DAILY TAKING LYRICA 100 MG CAPSULE 1 CAPSULE ORALLY TWICE A DAY TAKING AMITRIPTYLINE HCL 25 MG TABLET DIRECTED ORALLY TAKING GLIMEPIRIDE 2 MG TABLET 1 TABLET WITH BREAKFAST OR THE FIRST MAIN MEAL OF THE DAY ORALLY ONCE A DAY MEDICATION LIST REVIEWED AND RECONCILED WITH THE PATIENT PAST MEDICAL HISTORY SLEEP APNEA USES BIPAP GERD HIGH CHOLESTEROL HTN ON PLAVIX FOR VENOUS INSUFFICIENCY ALLERGIES MODAFINIL: ITCHING SURGICAL HISTORY RIGHT CARPAL TUNNEL 11/2016 BARIATRIC SURGERY 04/2017 LEFT CARPAL MARIEL / ELBOW 05/2017 FAMILY HISTORY FATHER: , DIAGNOSED WITH HEART DISEASE MOTHER: , CANCER 4 BROTHER(S) - HEALTHY. SOCIAL HISTORY GENERAL: TOBACCO USE ARE YOU A:NONSMOKER ALCOHOL SCREENING DID YOU HAVE A DRINK CONTAINING ALCOHOL IN THE PAST YEAR?NO POINTS0 INTERPRETATIONNEGATIVE RECREATIONAL DRUG USE DRUG USE?NO CAFFEINE CAFFEINE USE?YES GNOSTICISM [id number] PRESYBETERIAN LANGUAGE LANGUAGES SPOKEN:KENYAN LEARNING BARRIERS / SPECIAL NEEDS BARRIERS TO LEARNING?NO HEARING IMPAIRED?NO VISION IMPAIRED?YES :CORRECTIVE LENSES COGNITIVELY IMPAIRED?NO READINESS TO LEARN?YES LEARNING PREFERENCES?NO LEARNING CAPABILITIES PRESENT?YES EMOTIONAL BARRIERS?NO SPECIAL DEVICES?YES :CANE, WALKER, WHEELCHAIR DOMESTIC VIOLENCE DO YOU FEEL SAFE IN YOUR ENVIRONMENT?YES DIET: BARIATRIC. EXERCISE: NONE. MARITAL STATUS: SINGLE. OTHERS AT HOME: NONE. PAIN CLINIC PFS, CLERGY, PUBLIC HEALTH REFERRALS PFS REFERRAL NEEDED?NO CLERGY REFERRAL NEEDED?NO PUBLIC HEALTH REFERRAL NEEDED?NO WAS THE PROVIDER NOTIFIED OF ANY PERTINENT INFO?NO HAS THE PATIENT BEEN EDUCATED REGARDING HIS/HER PLAN OF CARE?YES HAS THE PATIENT BEEN EDUCATED REGARDING PAIN, THE RISK FOR PAIN, THE IMPORTANCE OF EFFECTIVE PAIN MANAGEMENT, AND THE PAIN ASSESSMENT PROCESS?YES ADVANCE DIRECTIVE ADVANCE DIRECTIVE DISCUSSED WITH PATIENT:YES HAS HCP BROTHER-MARYANNE MARC [phone] REVIEWED 01/20/18 1009 BV04/20/18 REVIEWED WITH PTRubén DOBSON WITH PATIENT 08/27/18 0906 JS. HOSPITALIZATION/MAJOR DIAGNOSTIC PROCEDURE SEE ABOVE REVIEW OF SYSTEMS REVIEWED BY: PROVIDER: ISAIAH SEARS . CONSTITUTIONAL: ANY CHANGE IN YOUR MEDICAL CONDITION? NO . CHILLS NO . FEVER NO . INFECTION: DO YOU HAVE NEW INFECTIONS? NO . DO YOU HAVE HISTORY OF MRSA? NO . MUSCULOSKELETAL: ANY NEW PATTERNS OF PAIN OR NUMBNESS? NO . GASTROENTEROLOGY: ANY NEW CHANGE IN BOWEL CONTROL? NO . GENITOURINARY: ANY NEW CHANGE IN BLADDER CONTROL? NO . IS THERE A CHANCE YOU COULD BE ? NO . HEMATOLOGY/LYMPH: DO YOU TAKE ANY BLOOD THINNERS? (FOR EXAMPLE- COUMADIN, PLAVIX, AGGRENOX, PLATEL, PRADAXA, OR XARELTO) PLAISX . WHEN WAS YOUR LAST DOSE? DATE: TIME: . NEUROLOGY: HAVE YOU FALLEN IN THE PAST 12 MONTHS? NO . ANY NEW EXTREMITY NUMBNESS OR WEAKNESS? NO . CARDIOLOGY: DO YOU HAVE A PACEMAKER OR DEFIBRILLATOR? NO . RESPIRATORY: HAVE YOU BEEN SICK IN THE PAST WEEK? NO . FEVER NO . FLU LIKE SYMPTOMS? NO . COUGH NO . INTEGUMENTARY: DO YOU HAVE ANY RASHES OR OPEN SORES? NO . ALLERGIC/IMMUNO: ARE YOU ALLERGIC TO IV DYE? NO . ANY NEW ALLERGIES? NO . PSYCHIATRIC: DO YOU HAVE THOUGHTS OF HURTING YOURSELF OR SOMEONE ELSE? NO . ARE YOU ABUSED, NEGLECTED, OR IN AN UNSAFE ENVIRONMENT? NO . ENDOCRINOLOGY: ARE YOU DIABETIC? YES . OTHER: DO YOU NEED ANY PRESCRIPTIONS? NO . IF YES, PLEASE LIST: ____ . ANY NEW PROBLEMS WITH YOUR MEDICATIONS? NO . WHEN DID YOU LAST EAT? ____ . WHEN DID YOU LAST DRINK? ____ . WHAT DID YOU LAST DRINK? ____ . NAME OF PERSON DRIVING YOU HOME? ____ . DO YOU HAVE ANY OTHER QUESTIONS OR CONCERNS NO . VITAL SIGNS WT 291.8 LBS, HT 69 IN, BMI 43.09 INDEX, BP 137/71 MM HG, HR 84 /MIN, RR 18 /MIN, TEMP 97.6 F, OXYGEN SAT % 95%, NA INITIALS AW 1310. EXAMINATION GENERAL EXAMINATION: GENERAL APPEARANCE:AWAKE,ALERT ,PLEAASANT . PSYCHAFFECT NORMAL . LUNGS:LUNG BALDERAS ARE CLEAR TO AUSCULTATION BILATERALLY. GOOD MOVEMENT OF AIR . HEART:S1, S2 IN A REGULAR RATE AND RHYTHM. NO SIGNIFICANT MURMURS, RUBS OR GALLOPS NOTED . LUMBAR SACRAL SPINEPALPATION:TENDER OVER BILAT. L4/5-L5/S1 LUMBAR FACETS WITH FACET LOADING RIGHT >LEFT INCREASED PAIN NOTED WITH EXTENSION OF SPINE. DIAGNOSTIC:MRI L/S SPINE-06/11/17. ASSESSMENTS SPONDYLOSIS OF LUMBOSACRAL JOINT - M47.817 (PRIMARY) TREATMENT SPONDYLOSIS OF LUMBOSACRAL JOINT NOTES: CONTINUE WITH HOME EXCERSISE/STRETCHING. PROCEDURE CODES FA211 ESTABILISHED PATIENT [facility] FACILITY CHARGE DISPOSITION & COMMUNICATION FOLLOW UP 2 MONTHS ELECTRONICALLY SIGNED BY ORION GOMEZ ON 02/04/2019 AT 03:19 PM EDT DISCLAIMER : THIS IS A VISIT SUMMARY EXTRACTED FROM THE [employer] CHART. IT IS NOT A COPY OF THE [employer] PROGRESS NOTE. LISA
== END ==
LOC: M PAIN 13:00
PROVIDERS: ATTEND Nurse Practitioner Family
DX: M47.817 Spondylosis without myelopathy or radiculopathy, lumbosacral region (principal); Z79.84 Long term (current) use of oral hypoglycemic drugs; Z79.899 Other long term (current) drug therapy; Z98.84 Bariatric surgery status; Z88.8 Allergy status to other drugs, medicaments and biological substances

== ENCOUNTER 2019-02-11 07:20 | Day surgery (SDC) | payer MEDICARE ==
[~2019-02-11] VITALS: Ht 175.3 cm; Wt 134.7 kg
[~2019-02-11 07:20] MED LIST changes: +NS 1,000 ML IV ONE
[2019-02-11] MEDS ORDERED: PROPOFOL 200 MG/20 ML VIAL As Ordered ONE ×2 (08:36→09:01)
[2019-02-11] MEDS ORDERED: LIDOCAINE 2% INJ 100 MG/5 ML SDV (FOR ANES.) As Ordered ONE (08:36)
--- NOTE | 2019-02-11 09:32 | ROOR ---
Patient Name: Raysa Nayak Procedure Date: 02/11/2019 8:36 AM Date of : 1970 Age: 48 Room: [facility] Gender: Male Note Status: Finalized Procedure: Colonoscopy Indications: Screening for colorectal malignant neoplasm Providers: Jairo Phillips MD Referring MD: LOUISE CANELA MD Requesting Provider: Medicines: Monitored Anesthesia Care Complications: No immediate complications. Procedure: Pre-Anesthesia Assessment: - Prior to the procedure, a History and Physical was performed, and patient medications and allergies were reviewed. The patient is competent. The risks and benefits of the procedure and the sedation options and risks were discussed with the patient. All questions were answered and informed consent was obtained. Patient identification and proposed procedure were verified by the physician, the nurse and the anesthesiologist in the procedure room. Mental Status Examination: alert and oriented. Airway Examination: normal oropharyngeal airway and neck mobility. Respiratory Examination: clear to auscultation. CV Examination: normal. Prophylactic Antibiotics: The patient does not require prophylactic antibiotics. Prior Anticoagulants: The patient has taken no previous anticoagulant or antiplatelet agents. ASA Grade Assessment: III - A patient with severe systemic disease. After reviewing the risks and benefits, the patient was deemed in satisfactory condition to undergo the procedure. The anesthesia plan was to use monitored anesthesia care (MAC). Immediately prior to administration of medications, the patient was re-assessed for adequacy to receive sedatives. The heart rate, respiratory rate, oxygen saturations, blood pressure, adequacy of pulmonary ventilation, and response to care were monitored throughout the procedure. The physical status of the patient was re-assessed after the procedure. The Colonoscope was introduced through the anus and advanced to the cecum, identified by appendiceal orifice and ileocecal valve. The Colonoscope was introduced through the anus and advanced to the terminal ileum, with identification of the appendiceal orifice and IC valve. The patient tolerated the procedure well. The colonoscopy was technically difficult and complex due to a redundant colon. Successful completion of the procedure was aided by withdrawing the scope and replacing with the enteroscope. The quality of the bowel preparation was adequate to identify polyps 6 mm and larger in size and fair. The ileocecal valve, appendiceal orifice, and rectum were photographed. Scope insertion time was 8 minutes. Scope withdrawal time was 14 minutes. The total duration of the procedure was 22 minutes. Findings: The perianal and digital rectal examinations were normal. Two sessile polyps were found in the rectum. The polyps were 6 to 10 mm in size. These polyps were removed with a cold snare. Resection and retrieval were complete. Verification of patient identification for the specimen was done by the physician and nurse using the patient's name, date and medical record number. Estimated blood loss was minimal. Scattered medium-mouthed diverticula were found from sigmoid to ascending colon. There was no evidence of diverticular bleeding. Non-bleeding external and internal hemorrhoids were found during retroflexion. The hemorrhoids were small. Impression: - Preparation of the colon was fair. - Two 6 to 10 mm polyps in the rectum, removed with a cold snare. Resected and retrieved. - Moderate diverticulosis from sigmoid to ascending colon. There was no evidence of diverticular bleeding. - Non-bleeding external and internal hemorrhoids. Recommendation: - Patient has a contact number available for emergencies. The signs and symptoms of potential delayed complications were discussed with the patient. Return to normal activities tomorrow. Written discharge instructions were provided to the patient. - High fiber diet. - Continue present medications. - Await pathology results. - Repeat colonoscopy in 3 - 5 years for surveillance based on pathology results. - Based on the biopsy results you will receive a phone call from GI clinic in 2-3 weeks to review the pathology results AND/OR your results will be faxed to your Primary care physician. - Return to primary care physician. Jairo Phillips MD Jairo Phillips MD 02/11/2019 9:32:13 AM Electronically signed by Jairo Phillips MD Number of Addenda: 0 Note Initiated On: 02/11/2019 8:36 AM Estimated Blood Loss: Estimated blood loss was minimal.
[2019-02-11 09:40] VITALS: BP 133/82
== END 2019-02-11 09:45 | disposition home or self-care (01) ==
LOC: M OPP 07:20
PROVIDERS: ATTEND Internal Medicine Gastroenterology
DX: K62.1 Rectal polyp (principal); K57.30 Diverticulosis of large intestine without perforation or abscess without bleeding; K64.8 Other hemorrhoids; Z12.11 Encounter for screening for malignant neoplasm of colon

== ENCOUNTER → 2019-03-30 | Outpatient (CLI) | payer MEDICARE ==
[~2019-03-30] MED LIST changes: -NS 1,000 ML IV ONE
--- NOTE | 2019-04-11 00:38 | ECWPNPC ---
PATIENT NAME: RUBÉN MARC : 1970 GENDER: MALE VISIT DATE: 03/30/2019 DISCHARGE DATE: 03/30/19 1103 VISIT LOCKED DATE TIME: PHYSICIAN: ISAIAH BENNETT RESOURCE: ISAIAH BENNETT REASON FOR APPOINTMENT 1. BACK HISTORY OF PRESENT ILLNESS HISTORY OF PRESENT ILLNESS: HERE FOR F/U OF CHRONIC RIGHT LOW BACK PAIN.RATING LBP 8/10.DESCRIBES PAIN CONTINUOUS,ACHING AND STABBING.PAIN IS AGGREVATED WITH ROJM SPINE.REVIEWED MRI AND DISCUSSED TREATMENT OPTIONS. PAIN THE PATIENT DESCRIBES THE PAIN... FALL RISK SCREENING: SCREENING :NO FALLS REPORTED IN THE LAST YEAR CURRENT MEDICATIONS TAKING CETIRIZINE HCL 10 MG TABLET TAKE ONE TABLET BY MOUTH EVERY DAY ORAL TAKING DULOXETINE HCL 60 MG CAPSULE DELAYED RELEASE PARTICLES TAKE ONE CAPSULE BY MOUTH TWICE A DAY ORAL TAKING CLOPIDOGREL BISULFATE 75 MG TABLET TAKE ONE TABLET BY MOUTH EVERY DAY ORAL TAKING FAMOTIDINE 20 MG TABLET TAKE ONE TABLET BY MOUTH EVERY 12 HOURS ORAL TAKING WELLBUTRIN XL 150 MG TABLET EXTENDED RELEASE 24 HOUR 1 TABLET IN THE MORNING ORALLY ONCE A DAY TAKING FLONASE 50 MCG/DOSE INHALER 1 SPRAY IN EACH NOSTRIL NASALLY ONCE A DAY TAKING METFORMIN 500MG ORAL BID TAKING ATORVASTATIN CALCIUM 20 MG TABLET 1 CAP ORALLY DAILY TAKING LYRICA 100 MG CAPSULE 1 CAPSULE ORALLY TWICE A DAY TAKING AMITRIPTYLINE HCL 25 MG TABLET DIRECTED ORALLY TAKING GLIMEPIRIDE 2 MG TABLET 1 TABLET WITH BREAKFAST OR THE FIRST MAIN MEAL OF THE DAY ORALLY ONCE A DAY TAKING LINZESS 145 MCG CAPSULE 1 CAPSULE ORALLY ONCE A DAY DISCONTINUED DOK 100 MG CAPSULE TAKE ONE CAPSULE BY MOUTH TWICE A DAY ORAL MEDICATION LIST REVIEWED AND RECONCILED WITH THE PATIENT PAST MEDICAL HISTORY SLEEP APNEA USES BIPAP GERD HIGH CHOLESTEROL HTN ON PLAVIX FOR VENOUS INSUFFICIENCY ALLERGIES MODAFINIL: ITCHING SURGICAL HISTORY RIGHT CARPAL TUNNEL 11/2016 BARIATRIC SURGERY 04/2017 LEFT CARPAL MARIEL / ELBOW 05/2017 FAMILY HISTORY FATHER: , DIAGNOSED WITH HEART DISEASE MOTHER: , CANCER 4 BROTHER(S) - HEALTHY. SOCIAL HISTORY GENERAL: TOBACCO USE ARE YOU A:NONSMOKER OTHERS AT HOME: NONE. DIET: BARIATRIC. LANGUAGE LANGUAGES SPOKEN:[place] DOMESTIC VIOLENCE DO YOU FEEL SAFE IN YOUR ENVIRONMENT?YES RECREATIONAL DRUG USE DRUG USE?NO EXERCISE: NONE. LEARNING BARRIERS / SPECIAL NEEDS BARRIERS TO LEARNING?NO HEARING IMPAIRED?NO VISION IMPAIRED?YES :CORRECTIVE LENSES COGNITIVELY IMPAIRED?NO READINESS TO LEARN?YES LEARNING PREFERENCES?NO LEARNING CAPABILITIES PRESENT?YES EMOTIONAL BARRIERS?NO SPECIAL DEVICES?YES :CANE, WALKER, WHEELCHAIR PAIN CLINIC PFS, CLERGY, PUBLIC HEALTH REFERRALS PFS REFERRAL NEEDED?NO CLERGY REFERRAL NEEDED?NO PUBLIC HEALTH REFERRAL NEEDED?NO WAS THE PROVIDER NOTIFIED OF ANY PERTINENT INFO?NO HAS THE PATIENT BEEN EDUCATED REGARDING HIS/HER PLAN OF CARE?YES HAS THE PATIENT BEEN EDUCATED REGARDING PAIN, THE RISK FOR PAIN, THE IMPORTANCE OF EFFECTIVE PAIN MANAGEMENT, AND THE PAIN ASSESSMENT PROCESS?YES CAFFEINE CAFFEINE USE?YES ADVANCE DIRECTIVE ADVANCE DIRECTIVE DISCUSSED WITH PATIENT:YES HAS HCP BROTHER-MARYANNE MARC [phone] WORSHIP [id number] ISLAM MARITAL STATUS: SINGLE. ALCOHOL SCREENING DID YOU HAVE A DRINK CONTAINING ALCOHOL IN THE PAST YEAR?NO POINTS0 INTERPRETATIONNEGATIVE REVIEWED 01/20/18 1009 BV04/20/18 REVIEWED WITH PT. ADREVIEWED WITH PATIENT 08/27/18 0906 JS. HOSPITALIZATION/MAJOR DIAGNOSTIC PROCEDURE SEE ABOVE REVIEW OF SYSTEMS REVIEWED BY: PROVIDER: ISAIAH SEARS . CONSTITUTIONAL: ANY CHANGE IN YOUR MEDICAL CONDITION? NO . CHILLS NO . FEVER NO . INFECTION: DO YOU HAVE NEW INFECTIONS? NO . DO YOU HAVE HISTORY OF MRSA? NO . MUSCULOSKELETAL: ANY NEW PATTERNS OF PAIN OR NUMBNESS? NO . GASTROENTEROLOGY: ANY NEW CHANGE IN BOWEL CONTROL? NO . GENITOURINARY: ANY NEW CHANGE IN BLADDER CONTROL? NO . IS THERE A CHANCE YOU COULD BE ? NO . HEMATOLOGY/LYMPH: DO YOU TAKE ANY BLOOD THINNERS? (FOR EXAMPLE- COUMADIN, PLAVIX, AGGRENOX, PLATEL, PRADAXA, OR XARELTO) YES, PLAVIX . WHEN WAS YOUR LAST DOSE? DATE: TIME: . NEUROLOGY: HAVE YOU FALLEN IN THE PAST 12 MONTHS? NO . ANY NEW EXTREMITY NUMBNESS OR WEAKNESS? NO . CARDIOLOGY: DO YOU HAVE A PACEMAKER OR DEFIBRILLATOR? NO . RESPIRATORY: HAVE YOU BEEN SICK IN THE PAST WEEK? NO . FEVER NO . FLU LIKE SYMPTOMS? NO . COUGH NO . INTEGUMENTARY: DO YOU HAVE ANY RASHES OR OPEN SORES? NO . ALLERGIC/IMMUNO: ARE YOU ALLERGIC TO IV DYE? NO . ANY NEW ALLERGIES? NO . PSYCHIATRIC: DO YOU HAVE THOUGHTS OF HURTING YOURSELF OR SOMEONE ELSE? NO . ARE YOU ABUSED, NEGLECTED, OR IN AN UNSAFE ENVIRONMENT? NO . ENDOCRINOLOGY: ARE YOU DIABETIC? YES . OTHER: DO YOU NEED ANY PRESCRIPTIONS? NO . IF YES, PLEASE LIST: ____ . ANY NEW PROBLEMS WITH YOUR MEDICATIONS? NO . WHEN DID YOU LAST EAT? ____ . WHEN DID YOU LAST DRINK? ____ . WHAT DID YOU LAST DRINK? ____ . NAME OF PERSON DRIVING YOU HOME? ____ . DO YOU HAVE ANY OTHER QUESTIONS OR CONCERNS YES, PT STATES HE HAS NEW INSURANCE AND TO DISCUSS RF . VITAL SIGNS WT 300.2 LBS, HT 69 IN, BMI 44.33 INDEX, BP 139/74 MM HG, HR 68 /MIN, RR 18 /MIN, TEMP 97.5 F, OXYGEN SAT % 98, NA INITIALS MP 1010, REVIEWED BY: EM. EXAMINATION GENERAL EXAMINATION: GENERAL APPEARANCE:AWAKE,ALERT ,PLEAASANT . PSYCHAFFECT NORMAL . LUNGS:LUNG BALDERAS ARE CLEAR TO AUSCULTATION BILATERALLY. GOOD MOVEMENT OF AIR . HEART:S1, S2 IN A REGULAR RATE AND RHYTHM. NO SIGNIFICANT MURMURS, RUBS OR GALLOPS NOTED . LUMBAR SACRAL SPINEPALPATION:TENDER OVER .RIGHT L4/5-L5/S1 LUMBAR FACETS WITH FACET LOADING INCREASED PAIN NOTED WITH EXTENSION OF SPINE. DIAGNOSTIC:MRI L/S SPINE-06/11/17. ASSESSMENTS SPONDYLOSIS OF LUMBOSACRAL JOINT - M47.817 (PRIMARY) TREATMENT SPONDYLOSIS OF LUMBOSACRAL JOINT NOTES: RIGHT LFB DX L4/5-L5/S1. PREVENTIVE MEDICINE PAIN CLINIC TEACHING: PROCEDURE TEACHING PT GIVEN WRITTEN AND VERBAL PRE-PROCEDURE INSTRUCTIONS. PT VERBALIZES UNDERSTANDING OF ALL INSTRUCTIONS, STATING HE HAS HAD THIS PROCEDURE IN THE PAST. JULIANN DONOVAN 03/30/2019 11:01:41 AM > . PROCEDURE CODES FA211 ESTABILISHED PATIENT [facility] FACILITY CHARGE DISPOSITION & COMMUNICATION FOLLOW UP POST (REASON: RIGHT LFB DX L4/5-L5/S1) ELECTRONICALLY SIGNED BY ORION GOMEZ ON 04/10/2019 AT 09:50 AM EDT DISCLAIMER : THIS IS A VISIT SUMMARY EXTRACTED FROM THE [employer] CHART. IT IS NOT A COPY OF THE [employer] PROGRESS NOTE. LISA
== END ==
LOC: M PAIN 10:15
PROVIDERS: ATTEND Nurse Practitioner Family
DX: M47.817 Spondylosis without myelopathy or radiculopathy, lumbosacral region (principal); G89.29 Other chronic pain; G47.30 Sleep apnea, unspecified; E11.9 Type 2 diabetes mellitus without complications; E78.00 Pure hypercholesterolemia, unspecified; I10 Essential (primary) hypertension; Z98.84 Bariatric surgery status; Z88.8 Allergy status to other drugs, medicaments and biological substances; E66.01 Morbid (severe) obesity due to excess calories; Z68.41 Body mass index [BMI] 40.0-44.9, adult; Z79.84 Long term (current) use of oral hypoglycemic drugs; Z79.899 Other long term (current) drug therapy

== ENCOUNTER → 2019-05-12 | Outpatient (CLI) | payer MEDICARE ==
[~2019-05-12] MED LIST changes: +BUPIVACAINE HCL 0.25% 30 ML VIAL As Ordered ONE; +ISOVUE-M 200 41% 20ML VIAL (Q9966) As Ordered ONE; +LIDOCAINE 1% SDV INJ 30 ML VIAL As Ordered ONE
--- NOTE | 2019-05-12 11:31 | REP ---
Partial lumbar spine series: Single view. History: Right diagnostic facet block for pain. 13 seconds of fluoroscopy time is reported. Findings: A single last image hold fluoroscopically obtained oblique spot radiographs lumbar spine documents various needle positions and contrast injections associated with lumbar spine facet injection procedure. Electronically Signed by Leroy Obando MD 05/12/2019 11:23 A
--- NOTE | 2019-05-19 00:25 | ECWPNPC ---
PATIENT NAME: RUBÉN MARC : 1970 GENDER: MALE VISIT DATE: 05/12/2019 DISCHARGE DATE: 05/12/19 1125 VISIT LOCKED DATE TIME: PHYSICIAN: YOANA MENDOZA MD RESOURCE: YOANA MENDOZA MD REASON FOR APPOINTMENT 1. RIGHT LFB DX L4/5-L5/S1 HISTORY OF PRESENT ILLNESS HISTORY OF PRESENT ILLNESS: PAIN THE PATIENT DESCRIBES THE PAIN... FALL RISK SCREENING: SCREENING :NO FALLS REPORTED IN THE LAST YEAR CURRENT MEDICATIONS TAKING CETIRIZINE HCL 10 MG TABLET TAKE ONE TABLET BY MOUTH EVERY DAY ORAL , NOTES: 05-11-19899 TAKING DULOXETINE HCL 60 MG CAPSULE DELAYED RELEASE PARTICLES TAKE ONE CAPSULE BY MOUTH TWICE A DAY ORAL , NOTES: 05-11-19899 TAKING CLOPIDOGREL BISULFATE 75 MG TABLET TAKE ONE TABLET BY MOUTH EVERY DAY ORAL , NOTES: 05-04-19799 TAKING FAMOTIDINE 20 MG TABLET TAKE ONE TABLET BY MOUTH EVERY 12 HOURS ORAL , NOTES: 05-11-192099 TAKING WELLBUTRIN XL 150 MG TABLET EXTENDED RELEASE 24 HOUR 1 TABLET IN THE MORNING ORALLY ONCE A DAY, NOTES: 05-11-19799 TAKING FLONASE 50 MCG/DOSE INHALER 1 SPRAY IN EACH NOSTRIL NASALLY ONCE A DAY, NOTES: NOT LATELY TAKING METFORMIN 500MG ORAL BID, NOTES: 05-11-19799 TAKING ATORVASTATIN CALCIUM 20 MG TABLET 1 CAP ORALLY DAILY, NOTES: 05-11-192099 TAKING LYRICA 100 MG CAPSULE 1 CAPSULE ORALLY TWICE A DAY, NOTES: 2099 TAKING AMITRIPTYLINE HCL 25 MG TABLET DIRECTED ORALLY , NOTES: 05-11-192099 TAKING GLIMEPIRIDE 2 MG TABLET 1 TABLET WITH BREAKFAST OR THE FIRST MAIN MEAL OF THE DAY ORALLY ONCE A DAY, NOTES: 05-11-19899 TAKING LINZESS 145 MCG CAPSULE 1 CAPSULE ORALLY ONCE A DAY, NOTES: 05-11-192099 MEDICATION LIST REVIEWED AND RECONCILED WITH THE PATIENT PAST MEDICAL HISTORY SLEEP APNEA USES BIPAP GERD HIGH CHOLESTEROL HTN ON PLAVIX FOR VENOUS INSUFFICIENCY ALLERGIES MODAFINIL: ITCHING SURGICAL HISTORY RIGHT CARPAL TUNNEL 11/2016 BARIATRIC SURGERY 04/2017 LEFT CARPAL MARIEL / ELBOW 05/2017 FAMILY HISTORY FATHER: , DIAGNOSED WITH HEART DISEASE MOTHER: , CANCER 4 BROTHER(S) - HEALTHY. SOCIAL HISTORY GENERAL: TOBACCO USE ARE YOU A:NONSMOKER OTHERS AT HOME: NONE. DIET: BARIATRIC. LANGUAGE LANGUAGES SPOKEN:PERSIAN DOMESTIC VIOLENCE DO YOU FEEL SAFE IN YOUR ENVIRONMENT?YES RECREATIONAL DRUG USE DRUG USE?NO EXERCISE: NONE. LEARNING BARRIERS / SPECIAL NEEDS BARRIERS TO LEARNING?NO HEARING IMPAIRED?NO VISION IMPAIRED?YES :CORRECTIVE LENSES COGNITIVELY IMPAIRED?NO READINESS TO LEARN?YES LEARNING PREFERENCES?NO LEARNING CAPABILITIES PRESENT?YES EMOTIONAL BARRIERS?NO SPECIAL DEVICES?YES :CANE, WALKER, WHEELCHAIR PAIN CLINIC PFS, CLERGY, PUBLIC HEALTH REFERRALS PFS REFERRAL NEEDED?NO CLERGY REFERRAL NEEDED?NO PUBLIC HEALTH REFERRAL NEEDED?NO WAS THE PROVIDER NOTIFIED OF ANY PERTINENT INFO?NO HAS THE PATIENT BEEN EDUCATED REGARDING HIS/HER PLAN OF CARE?YES HAS THE PATIENT BEEN EDUCATED REGARDING PAIN, THE RISK FOR PAIN, THE IMPORTANCE OF EFFECTIVE PAIN MANAGEMENT, AND THE PAIN ASSESSMENT PROCESS?YES CAFFEINE CAFFEINE USE?YES ADVANCE DIRECTIVE ADVANCE DIRECTIVE DISCUSSED WITH PATIENT:YES HAS HCP BROTHER-MARYANNE MARC [phone] LUTHERAN [id number] SIKHISM MARITAL STATUS: SINGLE. ALCOHOL SCREENING DID YOU HAVE A DRINK CONTAINING ALCOHOL IN THE PAST YEAR?NO POINTS0 INTERPRETATIONNEGATIVE REVIEWED 01/20/18 1009 BV04/20/18 REVIEWED WITH PT. BRONSON WITH PATIENT 08/27/18 0906 JS. HOSPITALIZATION/MAJOR DIAGNOSTIC PROCEDURE SEE ABOVE REVIEW OF SYSTEMS REVIEWED BY: PROVIDER: . CONSTITUTIONAL: ANY CHANGE IN YOUR MEDICAL CONDITION? NO . CHILLS NO . FEVER NO . INFECTION: DO YOU HAVE NEW INFECTIONS? NO . DO YOU HAVE HISTORY OF MRSA? NO . MUSCULOSKELETAL: ANY NEW PATTERNS OF PAIN OR NUMBNESS? NO . GASTROENTEROLOGY: ANY NEW CHANGE IN BOWEL CONTROL? NO . GENITOURINARY: ANY NEW CHANGE IN BLADDER CONTROL? NO . IS THERE A CHANCE YOU COULD BE ? NO . HEMATOLOGY/LYMPH: DO YOU TAKE ANY BLOOD THINNERS? (FOR EXAMPLE- COUMADIN, PLAVIX, AGGRENOX, PLATEL, PRADAXA, OR XARELTO) NO . WHEN WAS YOUR LAST DOSE? DATE: TIME:05/04/19 0800 . NEUROLOGY: HAVE YOU FALLEN IN THE PAST 12 MONTHS? NO . ANY NEW EXTREMITY NUMBNESS OR WEAKNESS? NO . CARDIOLOGY: DO YOU HAVE A PACEMAKER OR DEFIBRILLATOR? NO . RESPIRATORY: HAVE YOU BEEN SICK IN THE PAST WEEK? NO . FEVER NO . FLU LIKE SYMPTOMS? NO . COUGH NO . INTEGUMENTARY: DO YOU HAVE ANY RASHES OR OPEN SORES? NO . ALLERGIC/IMMUNO: ARE YOU ALLERGIC TO IV DYE? NO . ANY NEW ALLERGIES? NO . PSYCHIATRIC: DO YOU HAVE THOUGHTS OF HURTING YOURSELF OR SOMEONE ELSE? NO . ARE YOU ABUSED, NEGLECTED, OR IN AN UNSAFE ENVIRONMENT? NO . ENDOCRINOLOGY: ARE YOU DIABETIC? NO . OTHER: DO YOU NEED ANY PRESCRIPTIONS? NO . IF YES, PLEASE LIST: ____ . ANY NEW PROBLEMS WITH YOUR MEDICATIONS? NO . WHEN DID YOU LAST EAT? ____05-11-19 7 OM . WHEN DID YOU LAST DRINK? ____05-11-19 10 PM . WHAT DID YOU LAST DRINK? ____WATER . NAME OF PERSON DRIVING YOU HOME? ____MARYANNE MARC . DO YOU HAVE ANY OTHER QUESTIONS OR CONCERNS NO . VITAL SIGNS WT 302.2 LBS, HT 69 IN, BMI 44.62 INDEX, BP 127/80 MM HG, HR 71 /MIN, RR 18 /MIN, TEMP 96.4 F, OXYGEN SAT % 99%, SAFE IN ENV? (Y/N) YES, NA INITIALS OR 09:17, REVIEWED BY: KG. ASSESSMENTS SPONDYLOSIS OF LUMBOSACRAL REGION WITHOUT MYELOPATHY OR RADICULOPATHY - M47.817 (PRIMARY) SPONDYLOSIS OF LUMBAR REGION WITHOUT MYELOPATHY OR RADICULOPATHY - M47.816 TREATMENT SPONDYLOSIS OF LUMBOSACRAL REGION WITHOUT MYELOPATHY OR RADICULOPATHY SMC FACET BLOCK (PAIN)[id number] PROCEDURES PN LUMBAR FACET BLOCK DIAGNOSTIC PRE PROCEDURE DIAGNOSIS LUMBAR SPONDYLOSIS, LUMBOSACRAL SPONDYLOSIS POST PROCEDURE DIAGNOSIS LUMBAR SPONDYLOSIS, LUMBOSACRAL SPONDYLOSIS PROCEDURE RIGHT L4-L5 AND RIGHT L5-S1 FACET BLOCK DIAGNOSTIC NUMBER [address] YOANA MENDOZA CONSULTING SERVICES ASSOCIATE NONE ANESTHESIA LOCAL PRE PROCEDURE NOTE THE PATIENT WITH HISTORY OF CHRONIC LOW BACK PAIN. I EVALUATED THE PATIENT AND REVIEWED THE CHART. I WENT OVER THE RISKS, ALTERNATIVES, AND BENEFITS ASSOCIATED WITH THIS PROCEDURE. THE PATIENT WOULD LIKE TO PROCEED AND GAVE CONSENT TO PERFORM THE PROCEDURE. AGREED WITH THE PATIENT WE ARE DOING THIS PROCEDURE TO DETERMINE IF THE PATIENT IS A CANDIDATE FOR A RADIOFREQUENCY ABLATION OF THE FACETS JOINTS. THE PATIENT DENIES UNEXPLAINABLE WEIGHT LOSS, FEVER, CHILLS, OR NEW CHANGES IN URINARY OR BOWEL CONTROL DESCRIPTION OF PROCEDURE THE PATIENT WAS BROUGHT TO THE PROCEDURE ROOM AND PLACED IN THE PRONE POSITION. THE LUMBOSACRAL AREA WAS CLEANED WITH CHLORAPREP SOLUTION AND DRAPED ASEPTICALLY. THE PROCEDURE WAS DONE UNDER STERILE CONDITIONS. I CHECKED LATERALITY AND THE LEVEL WHERE THE PROCEDURE WAS GOING TO BE PERFORMED WITH THE PATIENT AND THE SUPPORTING STAFF AT THE MOMENT OF THE TIME OUT IN THE PROCEDURE ROOM. UNDER FLUOROSCOPIC GUIDANCE, TARGETS WERE SELECTED AT THE INTERSECTION OF THE RIGHT TRANSVERSE PROCESS OF L4, L5 AND ALA OF S1 WITH ITS RESPECTIVE SUPERIOR ARTICULAR PROCESS. LIDOCAINE WAS USED TO NUMB THE SKIN AND THE SUBCUTANEOUS TISSUE BELOW IT. SPINAL NEEDLE, 22-GAUGE WAS ADVANCED UNDER FLUOROSCOPIC GUIDANCE AND FOLLOWING PATIENT FEEDBACK UNTIL THE TARGETS WERE REACHED. POSITION OF THE NEEDLES WAS VERIFIED WITH AP AND LATERAL VIEWS. AFTER PROPER POSITION OF THE NEEDLES WAS ACHIEVED, ISOVUE-M DYE WAS INJECTED AT EACH SITE SHOWING ADEQUATE SPREAD OF THE DYE. THEN A SOLUTION OF 0.4 ML OF BUPIVACAINE 0.25% WAS INJECTED AT EACH SITE. THERE WAS NO EVIDENCE OF BLOOD, PARESTHESIA OR CEREBROSPINAL FLUID DURING THE PROCEDURE. THE PATIENT WAS SENT TO THE RECOVERY ROOM. THE PATIENT WAS MOVING THE EXTREMITIES AND DOING WELL. THERE WAS NO COMPLICATION DURING THE PROCEDURE. FLUOROSCOPY TIME WAS 13 SECONDS POST PROCEDURE NOTE THE PATIENT WILL DOCUMENT HIS PAIN LEVEL AND RESPONSE TO THIS PROCEDURE EVERY 30 MINUTES. THE PATIENT WILL BE SEEN IN A FOLLOW UP IN THE NEXT FEW WEEKS. FURTHER DETERMINATION FOR HIS CASE WILL BE DONE AT THE NEXT VISIT. INSTRUCTIONS WERE GIVEN, QUESTIONS WERE ANSWERED, AND THE PATIENT EXPRESSED UNDERSTANDING AND AGREED WITH THE PLAN. I, RENE CUREIL, DOCUMENTED THE ABOVE INFORMATION ACTING A SCRIBE FOR DR. MENDOZA. I HAVE REVIEWED THE ABOVE DOCUMENT, WRITTEN BY RENE CURIEL SCRIBNaveed AND I VERIFY THAT IT IS ACCURATE. PROCEDURE CODES 84112 INJ PARAVERT F JNT L/S 1 LEV, MODIFIERS: [place] 9[address]89 INJ PARAVERT F JNT L/S 2 LEV, MODIFIERS: RT 6045F RADXPS IN END [id number] PXD DISPOSITION & COMMUNICATION FOLLOW UP 3 WEEKS ELECTRONICALLY SIGNED BY YOANA MENDOZA MD, MD ON 05/18/2019 AT 10:13 AM EDT DISCLAIMER : THIS IS A VISIT SUMMARY EXTRACTED FROM THE [employer] CHART. IT IS NOT A COPY OF THE [employer] PROGRESS NOTE. MTDD
== END ==
LOC: M PAIN 09:30
PROVIDERS: ATTEND Anesthesiology
DX: M47.817 Spondylosis without myelopathy or radiculopathy, lumbosacral region (principal); M47.816 Spondylosis without myelopathy or radiculopathy, lumbar region; G47.30 Sleep apnea, unspecified; K21.9 Gastro-esophageal reflux disease without esophagitis; E78.00 Pure hypercholesterolemia, unspecified; I10 Essential (primary) hypertension; I87.2 Venous insufficiency (chronic) (peripheral); Z79.02 Long term (current) use of antithrombotics/antiplatelets; Z79.84 Long term (current) use of oral hypoglycemic drugs; Z79.899 Other long term (current) drug therapy; Z98.84 Bariatric surgery status; Z88.8 Allergy status to other drugs, medicaments and biological substances
CPT/HCPCS: 64493; 64494; Q9966

== ENCOUNTER → 2019-06-01 | Outpatient (CLI) | payer MEDICARE ==
[~2019-06-01] MED LIST changes: -BUPIVACAINE HCL 0.25% 30 ML VIAL As Ordered ONE; -GLIM1TAB PO; +GLIM1TAB4 PO; -ISOVUE-M 200 41% 20ML VIAL (Q9966) As Ordered ONE; -LIDOCAINE 1% SDV INJ 30 ML VIAL As Ordered ONE
--- NOTE | 2019-06-18 00:52 | ECWPNPC ---
PATIENT NAME: RUBÉN MARC : 1970 GENDER: MALE VISIT DATE: 06/01/2019 DISCHARGE DATE: 06/01/19 0953 VISIT LOCKED DATE TIME: PHYSICIAN: ISAIAH BENNETT RESOURCE: ISAIAH BENNETT REASON FOR APPOINTMENT 1. POST PROC HISTORY OF PRESENT ILLNESS HISTORY OF PRESENT ILLNESS: HERE FOR POST PROCEDURE F/U.HAD LFB DX ON RIGHT SIDE #2 05-12-19.REPORTING ONLY 1HR REDUCTION IN PAIN POST PROCEDURE.DISCUSSED TREATMENT OPTIONS TO INCLUDE MEDICATION AND POSSIBLY IF INSURANCE WILL COVER A DCS TRIAL.HE WAS TOLD BY NEUROSURGERY HE IS NOT A SURGICAL CANDIDATE.HE HAS HAD MULTIPLE INTERVENTIONAL TREATMENTS WITHOUT SIGNIFICANT IMPROVEMENT.RATING PAIN VAS 9/10.PAIN IS LOCATED IN LOW BACK WITH RADIATION INTO RIGHT BUTTOCK. PAIN THE PATIENT DESCRIBES THE PAIN... FALL RISK SCREENING: SCREENING :NO FALLS REPORTED IN THE LAST YEAR CURRENT MEDICATIONS TAKING CETIRIZINE HCL 10 MG TABLET TAKE ONE TABLET BY MOUTH EVERY DAY ORAL TAKING DULOXETINE HCL 60 MG CAPSULE DELAYED RELEASE PARTICLES TAKE ONE CAPSULE BY MOUTH TWICE A DAY ORAL TAKING CLOPIDOGREL BISULFATE 75 MG TABLET TAKE ONE TABLET BY MOUTH EVERY DAY ORAL TAKING FAMOTIDINE 20 MG TABLET TAKE ONE TABLET BY MOUTH EVERY 12 HOURS ORAL TAKING WELLBUTRIN XL 150 MG TABLET EXTENDED RELEASE 24 HOUR 1 TABLET IN THE MORNING ORALLY ONCE A DAY TAKING FLONASE 50 MCG/DOSE INHALER 1 SPRAY IN EACH NOSTRIL NASALLY ONCE A DAY TAKING METFORMIN 500MG ORAL BID TAKING ATORVASTATIN CALCIUM 20 MG TABLET 1 CAP ORALLY DAILY TAKING LYRICA 100 MG CAPSULE 1 CAPSULE ORALLY TWICE A DAY TAKING AMITRIPTYLINE HCL 25 MG TABLET DIRECTED ORALLY TAKING GLIMEPIRIDE 2 MG TABLET 1 TABLET WITH BREAKFAST OR THE FIRST MAIN MEAL OF THE DAY ORALLY ONCE A DAY TAKING LINZESS 145 MCG CAPSULE 1 CAPSULE ORALLY ONCE A DAY MEDICATION LIST REVIEWED AND RECONCILED WITH THE PATIENT PAST MEDICAL HISTORY SLEEP APNEA USES BIPAP GERD HIGH CHOLESTEROL HTN ON PLAVIX FOR VENOUS INSUFFICIENCY ALLERGIES MODAFINIL: ITCHING SURGICAL HISTORY RIGHT CARPAL TUNNEL 11/2016 BARIATRIC SURGERY 04/2017 LEFT CARPAL MARIEL / ELBOW 05/2017 FAMILY HISTORY FATHER: , DIAGNOSED WITH HEART DISEASE MOTHER: , CANCER 4 BROTHER(S) - HEALTHY. SOCIAL HISTORY GENERAL: TOBACCO USE ARE YOU A:NONSMOKER OTHERS AT HOME: NONE. DIET: BARIATRIC. LANGUAGE LANGUAGES SPOKEN:YI DOMESTIC VIOLENCE DO YOU FEEL SAFE IN YOUR ENVIRONMENT?YES RECREATIONAL DRUG USE DRUG USE?NO EXERCISE: NONE. LEARNING BARRIERS / SPECIAL NEEDS BARRIERS TO LEARNING?NO HEARING IMPAIRED?NO VISION IMPAIRED?YES :CORRECTIVE LENSES COGNITIVELY IMPAIRED?NO READINESS TO LEARN?YES LEARNING PREFERENCES?NO LEARNING CAPABILITIES PRESENT?YES EMOTIONAL BARRIERS?NO SPECIAL DEVICES?YES :CANE, WALKER, WHEELCHAIR PAIN CLINIC PFS, CLERGY, PUBLIC HEALTH REFERRALS PFS REFERRAL NEEDED?NO CLERGY REFERRAL NEEDED?NO PUBLIC HEALTH REFERRAL NEEDED?NO WAS THE PROVIDER NOTIFIED OF ANY PERTINENT INFO?NO HAS THE PATIENT BEEN EDUCATED REGARDING HIS/HER PLAN OF CARE?YES HAS THE PATIENT BEEN EDUCATED REGARDING PAIN, THE RISK FOR PAIN, THE IMPORTANCE OF EFFECTIVE PAIN MANAGEMENT, AND THE PAIN ASSESSMENT PROCESS?YES CAFFEINE CAFFEINE USE?YES ADVANCE DIRECTIVE ADVANCE DIRECTIVE DISCUSSED WITH PATIENT:YES HAS HCP BROTHER-MARYANNE MARC [phone] [place] [id number] SIKH MARITAL STATUS: SINGLE. ALCOHOL SCREENING DID YOU HAVE A DRINK CONTAINING ALCOHOL IN THE PAST YEAR?NO POINTS0 INTERPRETATIONNEGATIVE REVIEWED 01/20/18 1009 BV04/20/18 REVIEWED WITH PT. ADREVIEWED WITH PATIENT 08/27/18 0906 JS. HOSPITALIZATION/MAJOR DIAGNOSTIC PROCEDURE SEE ABOVE REVIEW OF SYSTEMS REVIEWED BY: PROVIDER: ISAIAH SEARS . CONSTITUTIONAL: ANY CHANGE IN YOUR MEDICAL CONDITION? NO . CHILLS NO . FEVER NO . INFECTION: DO YOU HAVE NEW INFECTIONS? NO . DO YOU HAVE HISTORY OF MRSA? NO . MUSCULOSKELETAL: ANY NEW PATTERNS OF PAIN OR NUMBNESS? NO . GASTROENTEROLOGY: ANY NEW CHANGE IN BOWEL CONTROL? NO . GENITOURINARY: ANY NEW CHANGE IN BLADDER CONTROL? NO . IS THERE A CHANCE YOU COULD BE ? NO . HEMATOLOGY/LYMPH: DO YOU TAKE ANY BLOOD THINNERS? (FOR EXAMPLE- COUMADIN, PLAVIX, AGGRENOX, PLATEL, PRADAXA, OR XARELTO) YES, PLAVIX . WHEN WAS YOUR LAST DOSE? DATE: TIME: . NEUROLOGY: HAVE YOU FALLEN IN THE PAST 12 MONTHS? NO . ANY NEW EXTREMITY NUMBNESS OR WEAKNESS? NO . CARDIOLOGY: DO YOU HAVE A PACEMAKER OR DEFIBRILLATOR? NO . RESPIRATORY: HAVE YOU BEEN SICK IN THE PAST WEEK? NO . FEVER NO . FLU LIKE SYMPTOMS? NO . COUGH NO . INTEGUMENTARY: DO YOU HAVE ANY RASHES OR OPEN SORES? NO . ALLERGIC/IMMUNO: ARE YOU ALLERGIC TO IV DYE? NO . ANY NEW ALLERGIES? NO . PSYCHIATRIC: DO YOU HAVE THOUGHTS OF HURTING YOURSELF OR SOMEONE ELSE? NO . ARE YOU ABUSED, NEGLECTED, OR IN AN UNSAFE ENVIRONMENT? NO . ENDOCRINOLOGY: ARE YOU DIABETIC? YES . OTHER: DO YOU NEED ANY PRESCRIPTIONS? NO . IF YES, PLEASE LIST: ____ . ANY NEW PROBLEMS WITH YOUR MEDICATIONS? NO . WHEN DID YOU LAST EAT? ____ . WHEN DID YOU LAST DRINK? ____ . WHAT DID YOU LAST DRINK? ____ . NAME OF PERSON DRIVING YOU HOME? ____ . DO YOU HAVE ANY OTHER QUESTIONS OR CONCERNS NO . VITAL SIGNS WT 301.4 LBS, HT 69 IN, BMI 44.50 INDEX, BP 124/71 MM HG, HR 68 /MIN, RR 18 /MIN, TEMP 96.5 F, OXYGEN SAT % 98%, NA INITIALS SC 09:03, REVIEWED BY: GEENA. EXAMINATION GENERAL EXAMINATION: GENERALAWAKE,ALERT ,PLEAASANT . PSYCHAFFECT NORMAL . LUNGS:LUNG BALDERAS ARE CLEAR TO AUSCULTATION BILATERALLY. GOOD MOVEMENT OF AIR . HEART:S1, S2 IN A REGULAR RATE AND RHYTHM. NO SIGNIFICANT MURMURS, RUBS OR GALLOPS NOTED . ASSESSMENTS SPONDYLOSIS OF LUMBOSACRAL JOINT - M47.817 (PRIMARY) TREATMENT SPONDYLOSIS OF LUMBOSACRAL JOINT INCREASE LYRICA CAPSULE, 200 MG, 1 CAPSULE, ORALLY, TWICE A DAY MDD2, 30 DAYS, 60, REFILLS 2 NOTES: DCS INFO GIVEN. PROCEDURE CODES FA211 ESTABILISHED PATIENT [facility] CHARGE DISPOSITION & COMMUNICATION FOLLOW UP 10 WKS-MED F/U/DCS EVAL ELECTRONICALLY SIGNED BY ORION GOMEZ ON 06/17/2019 AT 03:17 PM EDT DISCLAIMER : THIS IS A VISIT SUMMARY EXTRACTED FROM THE [employer] CHART. IT IS NOT A COPY OF THE [employer] PROGRESS NOTE. MTDD
== END ==
LOC: M PAIN 09:00
PROVIDERS: ATTEND Nurse Practitioner Family
DX: M47.817 Spondylosis without myelopathy or radiculopathy, lumbosacral region (principal); G47.30 Sleep apnea, unspecified; E78.00 Pure hypercholesterolemia, unspecified; I10 Essential (primary) hypertension; Z98.84 Bariatric surgery status; Z88.8 Allergy status to other drugs, medicaments and biological substances; E11.9 Type 2 diabetes mellitus without complications; E66.01 Morbid (severe) obesity due to excess calories; Z68.41 Body mass index [BMI] 40.0-44.9, adult; Z79.84 Long term (current) use of oral hypoglycemic drugs; Z79.899 Other long term (current) drug therapy

== ENCOUNTER → 2019-08-10 | Outpatient (CLI) | payer MEDICARE ==
[~2019-08-10] MED LIST changes: +GLIM1TAB2 PO; -GLIM1TAB4 PO
--- NOTE | 2019-08-24 00:27 | ECWPNPC ---
PATIENT NAME: RUBÉN MARC : 1970 GENDER: MALE VISIT DATE: 08/10/2019 DISCHARGE DATE: 08/10/19 1229 VISIT LOCKED DATE TIME: PHYSICIAN: YOANA MENDOZA MD RESOURCE: YOANA MENDOZA MD REASON FOR APPOINTMENT 1. DISCUSS DCS HISTORY OF PRESENT ILLNESS HISTORY OF PRESENT ILLNESS: PAIN THE PATIENT DESCRIBES THE PAIN... 48 YEAR OLD MALE PATIENT WITH A HISTORY OF CHRONIC LOW BACK AND LEG PAIN. THE PATIENT DESCRIBES THE PAIN ACHING, BURNING, SHARP, AND CONTINUOUS WITH A PAIN SCORE OF 7-9/10 DEPENDING ON PHYSICAL ACTIVITY. THE PATIENT STATES HIS PAIN MAINLY ON THE RIGHT SIDE OF HIS LOW BACK WITH RADIATION DOWN HIS RIGHT LEG. THE PATIENT SAYS HE HAS BEEN SUFFERING FROM THIS PAIN FOR MANY YEARS. THE PATIENT SAYS HE HAS TRIED SEVERAL INTERVENTIONS IN THE PAST, BUT ONLY RECEIVED A COUPLE WEEKS OF PAIN RELIEF. PATIENT DENIES UNEXPLAINABLE WEIGHT LOSS, FEVER, CHILLS, NEW CHANGES ON HIS URINARY OR BOWEL CONTROL. FALL RISK SCREENING: SCREENING :NO FALLS REPORTED IN THE LAST YEAR CURRENT MEDICATIONS TAKING CETIRIZINE HCL 10 MG TABLET TAKE ONE TABLET BY MOUTH EVERY DAY ORAL TAKING DULOXETINE HCL 60 MG CAPSULE DELAYED RELEASE PARTICLES TAKE ONE CAPSULE BY MOUTH TWICE A DAY ORAL TAKING CLOPIDOGREL BISULFATE 75 MG TABLET TAKE ONE TABLET BY MOUTH EVERY DAY ORAL TAKING FAMOTIDINE 20 MG TABLET TAKE ONE TABLET BY MOUTH EVERY 12 HOURS ORAL TAKING WELLBUTRIN XL 150 MG TABLET EXTENDED RELEASE 24 HOUR 1 TABLET IN THE MORNING ORALLY ONCE A DAY TAKING FLONASE 50 MCG/DOSE INHALER 1 SPRAY IN EACH NOSTRIL NASALLY ONCE A DAY TAKING METFORMIN 500MG ORAL BID TAKING ATORVASTATIN CALCIUM 20 MG TABLET 1 CAP ORALLY DAILY TAKING AMITRIPTYLINE HCL 25 MG TABLET DIRECTED ORALLY TAKING GLIMEPIRIDE 2 MG TABLET 1 TABLET WITH BREAKFAST OR THE FIRST MAIN MEAL OF THE DAY ORALLY ONCE A DAY TAKING LINZESS 145 MCG CAPSULE 1 CAPSULE ORALLY ONCE A DAY TAKING LYRICA 200 MG CAPSULE 1 CAPSULE ORALLY TWICE A DAY MDD2 MEDICATION LIST REVIEWED AND RECONCILED WITH THE PATIENT PAST MEDICAL HISTORY SLEEP APNEA USES BIPAP GERD HIGH CHOLESTEROL HTN ON PLAVIX FOR VENOUS INSUFFICIENCY ALLERGIES MODAFINIL: ITCHING SURGICAL HISTORY RIGHT CARPAL TUNNEL 11/2016 BARIATRIC SURGERY 04/2017 LEFT CARPAL MARIEL / ELBOW 05/2017 FAMILY HISTORY FATHER: , DIAGNOSED WITH UNSPECIFIED HEART DISEASE MOTHER: , OTHER MALIGNANT NEOPLASM OF UNSPECIFIED SITE 4 BROTHER(S) - HEALTHY. SOCIAL HISTORY GENERAL: TOBACCO USE ARE YOU A:NONSMOKER OTHERS AT HOME: NONE. DIET: BARIATRIC. LANGUAGE LANGUAGES SPOKEN:TURKMEN DOMESTIC VIOLENCE DO YOU FEEL SAFE IN YOUR ENVIRONMENT?YES RECREATIONAL DRUG USE DRUG USE?NO EXERCISE: NONE. LEARNING BARRIERS / SPECIAL NEEDS BARRIERS TO LEARNING?NO HEARING IMPAIRED?NO VISION IMPAIRED?YES COGNITIVELY IMPAIRED?NO :CORRECTIVE LENSES READINESS TO LEARN?YES LEARNING PREFERENCES?NO LEARNING CAPABILITIES PRESENT?YES EMOTIONAL BARRIERS?NO SPECIAL DEVICES?YES :CANE, WALKER, WHEELCHAIR PAIN CLINIC PFS, CLERGY, PUBLIC HEALTH REFERRALS PFS REFERRAL NEEDED?NO CLERGY REFERRAL NEEDED?NO PUBLIC HEALTH REFERRAL NEEDED?NO WAS THE PROVIDER NOTIFIED OF ANY PERTINENT INFO?NO HAS THE PATIENT BEEN EDUCATED REGARDING HIS/HER PLAN OF CARE?YES HAS THE PATIENT BEEN EDUCATED REGARDING PAIN, THE RISK FOR PAIN, THE IMPORTANCE OF EFFECTIVE PAIN MANAGEMENT, AND THE PAIN ASSESSMENT PROCESS?YES CAFFEINE CAFFEINE USE?YES ADVANCE DIRECTIVE ADVANCE DIRECTIVE DISCUSSED WITH PATIENT:YES HAS HCP BROTHER-MARYANNE MARC [phone] JEWISH [id number] ORIENTAL ORTHODOX MARITAL STATUS: SINGLE. ALCOHOL SCREENING DID YOU HAVE A DRINK CONTAINING ALCOHOL IN THE PAST YEAR?NO POINTS0 INTERPRETATIONNEGATIVE REVIEWED 01/20/18 1009 BV04/20/18 REVIEWED WITH PT. ADREVIEWED WITH PATIENT 08/27/18 0906 JS. HOSPITALIZATION/MAJOR DIAGNOSTIC PROCEDURE SEE ABOVE REVIEW OF SYSTEMS REVIEWED BY: PROVIDER: YOANA MENDOZA MD . CONSTITUTIONAL: ANY CHANGE IN YOUR MEDICAL CONDITION? NO . CHILLS NO . FEVER NO . INFECTION: DO YOU HAVE NEW INFECTIONS? NO . DO YOU HAVE HISTORY OF MRSA? NO . MUSCULOSKELETAL: ANY NEW PATTERNS OF PAIN OR NUMBNESS? NO . GASTROENTEROLOGY: ANY NEW CHANGE IN BOWEL CONTROL? NO . GENITOURINARY: ANY NEW CHANGE IN BLADDER CONTROL? NO . IS THERE A CHANCE YOU COULD BE ? NO . HEMATOLOGY/LYMPH: DO YOU TAKE ANY BLOOD THINNERS? (FOR EXAMPLE- COUMADIN, PLAVIX, AGGRENOX, PLATEL, PRADAXA, OR XARELTO) PLAVIX . WHEN WAS YOUR LAST DOSE? DATE: TIME: . NEUROLOGY: HAVE YOU FALLEN IN THE PAST 12 MONTHS? NO . ANY NEW EXTREMITY NUMBNESS OR WEAKNESS? NO . CARDIOLOGY: DO YOU HAVE A PACEMAKER OR DEFIBRILLATOR? NO . RESPIRATORY: HAVE YOU BEEN SICK IN THE PAST WEEK? NO . FEVER NO . FLU LIKE SYMPTOMS? NO . COUGH NO . INTEGUMENTARY: DO YOU HAVE ANY RASHES OR OPEN SORES? NO . ALLERGIC/IMMUNO: ARE YOU ALLERGIC TO IV DYE? NO . ANY NEW ALLERGIES? NO . PSYCHIATRIC: DO YOU HAVE THOUGHTS OF HURTING YOURSELF OR SOMEONE ELSE? NO . ARE YOU ABUSED, NEGLECTED, OR IN AN UNSAFE ENVIRONMENT? NO . ENDOCRINOLOGY: ARE YOU DIABETIC? YES . OTHER: DO YOU NEED ANY PRESCRIPTIONS? NO . IF YES, PLEASE LIST: ____ . ANY NEW PROBLEMS WITH YOUR MEDICATIONS? NO . WHEN DID YOU LAST EAT? ____ . WHEN DID YOU LAST DRINK? ____ . WHAT DID YOU LAST DRINK? ____ . NAME OF PERSON DRIVING YOU HOME? ____ . DO YOU HAVE ANY OTHER QUESTIONS OR CONCERNS FLU VACCINE SOON . VITAL SIGNS WT 312.8 LBS, HT 69 IN, BMI 46.19 INDEX, BP 144/74 MM HG, HR 79 /MIN, RR 18 /MIN, TEMP 97.8 F, OXYGEN SAT % 96%, NA INITIALS AW 1535, REVIEWED BY: EM. EXAMINATION GENERAL EXAMINATION: PATIENT IS ALERT O X 3 AND COOPERATIVE. ANTALGIC WALK. PATIENT IS LIMPING FROM THE RIGHT LEG. RIGHT LEG IS WEAKER AT EXTENSION AND FLEXION. STRAIGHT LEG RAISE OF THE RIGHT LEG IS POSITIVE AT 40 DEGREES FOR RADICULOPATHY. PAIN IS FOLLOWING THE DISTRIBUTION OF RIGHT L2 NERVE. MRI OF THE LUMBAR SPINE DONE ON 06/11/2017 SHOWS BULGING DISC AT L2-L3 WITH A SMALL FAR LATERAL DISC PROTRUSION ON THE RIGHT THAT IS CONTACTING THE RIGHT L2 NERVE ROOTLET IN THE EXTRAFORAMINAL SPACE, ALONG WITH BULGING DISCS AT OTHER LEVELS WELL. ASSESSMENTS INTERVERTEBRAL DISC DISORDERS WITH RADICULOPATHY, LUMBAR REGION - M51.16 (PRIMARY) TREATMENT INTERVERTEBRAL DISC DISORDERS WITH RADICULOPATHY, LUMBAR REGION [facility] MRI LUMBAR W/O CONTRAST (CPT [id number])[id number] CLINICAL NOTES: WE DISCUSSED SEVERAL ISSUES WITH MR. MARC' PAIN MANAGEMENT CASE. THE PATIENT'S PAIN IS DUE TO THE RIGHT L2 NERVE DUE TO THE DISC PROTRUSION AT L2-L3. THE PATIENT HAS RECEIVED ONE EPIDURAL AT THAT SAME LEVEL OVER A YEAR AGO, AND I WOULD CONSIDER REPEATING AN EPIDURAL WITH A CATHETER THIS TIME. THE PATIENT'S LAST MRI WAS DONE OVER TWO YEARS AGO, AND I WOULD LIKE TO REQUEST FOR AN UPDATED LUMBAR MRI DUE TO THE PATIENT'S CLINICALLY DETERIORATING CONDITION OF HIS LOW BACK AND RIGHT LEG PAIN, WHICH IS VERY WEAK. DEPENDING ON THE NEW MRI RESULTS, I WILL CONSIDER REPEATING A LUMBAR EPIDURAL WITH A CATHETER OR A TRANSFORAMINAL EPIDURAL. I WILL REFER THE PATIENT TO MARYANNE FISCHER TO DISCUSS OPTIONS FOR HIS LUMBAR PAIN, SPECIFICALLY AT L2-L3 LEVEL DUE TO THE RIGHT L2 NERVE. I WILL REQUEST FOR THE PATIENT TO HAVE A PSYCHOLOGICAL EVALUATION TO SEE IF HE IS A GOOD CANDIDATE FOR A DCS TRIAL. IN ORDER FOR THE PATIENT TO HAVE A DCS TRIAL, I WILL REQUEST FOR A CLEARANCE FROM THE PATIENT'S PRIMARY CARE PROVIDER FOR THE PATIENT TO STOP PLAVIX FOR 14 DAYS (7 DAYS BEFORE AND 7 DAYS DURING THE TRIAL). THE PATIENT WILL FOLLOW UP WITH THE NURSE PRACTITIONER IN SEVERAL WEEKS TO GO OVER THE MRI RESULTS AND DISCUSS OPTIONS TO PROCEED WITH. INSTRUCTIONS WERE GIVEN, QUESTIONS WERE ANSWERED, PATIENT REPORTS UNDERSTANDING AND AGREES WITH THE PLAN. I, RENE CURIEL, DOCUMENTED THE ABOVE INFORMATION ACTING A SCRIBE FOR DR. MENDOZA. I HAVE REVIEWED THE ABOVE DOCUMENT, WRITTEN BY RENE OROZCO AND I VERIFY THAT IT IS ACCURATE. . PROCEDURE CODES FA211 ESTABILISHED PATIENT [facility] FAC[facility] CHARGE [id number] CURRENT MEDS W/DOSAGES DOCUMENTED G8730 PAIN ASSESS POS TOOL F/U PLAN DOC DISPOSITION & COMMUNICATION FOLLOW UP REASON: F/UP WITH SENIOR OFFICE ASSISTANT ELECTRONICALLY SIGNED BY YAONA MENDOZA MD, ON 08/23/2019 AT 05:41 PM EDT DISCLAIMER : THIS IS A VISIT SUMMARY EXTRACTED FROM THE [employer] CHART. IT IS NOT A COPY OF THE [employer] PROGRESS NOTE. LISA
== END ==
LOC: M PAIN 15:45
PROVIDERS: ATTEND Anesthesiology
DX: M51.16 Intervertebral disc disorders with radiculopathy, lumbar region (principal); G89.29 Other chronic pain; E11.9 Type 2 diabetes mellitus without complications; G47.30 Sleep apnea, unspecified; I10 Essential (primary) hypertension; Z98.84 Bariatric surgery status; Z88.8 Allergy status to other drugs, medicaments and biological substances; E66.01 Morbid (severe) obesity due to excess calories; Z68.42 Body mass index [BMI] 45.0-49.9, adult; Z79.84 Long term (current) use of oral hypoglycemic drugs; Z79.899 Other long term (current) drug therapy

== ENCOUNTER → 2019-09-09 | Outpatient (CLI) | payer MEDICARE ==
--- NOTE | 2019-09-09 15:48 | REP ---
MRI lumbar spine: 09/09/2019. Indication: Lumbar radiculopathy. Comparison: None. Technique: Multiplanar short and long TR sequences of the lumbar spine were obtained without IV Gadolinium. Findings: Lumbar vertebral body alignment is anatomic. Focal fatty marrow versus atypical hemangiomas are noted within the L4, L5 and S1 vertebral body centrally. No worrisome marrow signal is present. The visualized cord is normal. No significant paraspinal soft tissue abnormalities are present. L1/L2: Unremarkable. L2/L3, L3/L4 and L4/L5: Disc desiccation and mild disc space narrowing are present at each level. Facet arthropathy is present at L4/L5 and to a lesser extent L3/L4 without significant lateral recess narrowing. There is moderate neural foraminal narrowing on the left at L4/L5 without focal disc herniation. L5/S1: Unremarkable. Impression: Multilevel degenerative sequelae as described most pronounced on the left at L4/L5. Please correlate with radicular level. Electronically Signed by Jefry Woods DO 09/09/2019 03:40 P
== END ==
LOC: M PLARAD 11:02
PROVIDERS: ATTEND Anesthesiology
DX: M51.16 Intervertebral disc disorders with radiculopathy, lumbar region (principal)

== ENCOUNTER → 2019-09-23 | Outpatient (CLI) | payer MEDICARE ==
--- NOTE | 2019-09-24 02:28 | ECWPNPC ---
PATIENT NAME: RUBÉN MARC : 1970 GENDER: MALE VISIT DATE: 09/23/2019 DISCHARGE DATE: 09/23/19 1125 VISIT LOCKED DATE TIME: PHYSICIAN: ISAIAH BENNETT RESOURCE: ISAIAH BENNETT REASON FOR APPOINTMENT 1. REVIEW MRI HISTORY OF PRESENT ILLNESS HISTORY OF PRESENT ILLNESS: HERE FOR F/U OF CHRONIC LBP AND RIGHT LEG PAIN.HERE TODAY PER DR MENDOZA TO REVIEW MRI L/S SPINE.THIS IS REVIEWED WITH PATIENT.HE IS IN PROCESS OF BEING EVALUATED FOR DCS TRIAL.AT HIS LAST VISIT WITH DR MENDOZA HE WANTED MARYANNE FISCHER EVALUATION,LUMBAR MRI AND PSYCH EVAL.PSYCHIATRIC EVALUATION IS COMPLETE AND I NOTIFIED RENE VALDEZ,DR JANET OROZCO WHO WILL HAVE DR. MENDOZA REVIEW AND MAKE RECOMMENDATIONS. PAIN THE PATIENT DESCRIBES THE PAIN... FALL RISK SCREENING: SCREENING :NO FALLS REPORTED IN THE LAST YEAR CURRENT MEDICATIONS TAKING TRAMADOL HCL 50 MG TABLET 1 TO 2 TAB ORALLY Q4-6H PRN MDD4 TAKING CETIRIZINE HCL 10 MG TABLET TAKE ONE TABLET BY MOUTH EVERY DAY ORAL TAKING DULOXETINE HCL 60 MG CAPSULE DELAYED RELEASE PARTICLES TAKE ONE CAPSULE BY MOUTH TWICE A DAY ORAL TAKING CLOPIDOGREL BISULFATE 75 MG TABLET TAKE ONE TABLET BY MOUTH EVERY DAY ORAL TAKING FAMOTIDINE 20 MG TABLET TAKE ONE TABLET BY MOUTH EVERY 12 HOURS ORAL TAKING WELLBUTRIN XL 150 MG TABLET EXTENDED RELEASE 24 HOUR 1 TABLET IN THE MORNING ORALLY ONCE A DAY TAKING FLONASE 50 MCG/DOSE INHALER 1 SPRAY IN EACH NOSTRIL NASALLY ONCE A DAY TAKING METFORMIN 500MG ORAL BID TAKING ATORVASTATIN CALCIUM 20 MG TABLET 1 CAP ORALLY DAILY TAKING AMITRIPTYLINE HCL 25 MG TABLET DIRECTED ORALLY TAKING GLIMEPIRIDE 2 MG TABLET 1 TABLET WITH BREAKFAST OR THE FIRST MAIN MEAL OF THE DAY ORALLY ONCE A DAY TAKING LINZESS 145 MCG CAPSULE 1 CAPSULE ORALLY ONCE A DAY TAKING LYRICA 150 MG CAPSULE 1 CAPSULE ORALLY TWICE A DAY MDD2 MEDICATION LIST REVIEWED AND RECONCILED WITH THE PATIENT PAST MEDICAL HISTORY SLEEP APNEA USES BIPAP GERD HIGH CHOLESTEROL HTN ON PLAVIX FOR VENOUS INSUFFICIENCY DM ALLERGIES MODAFINIL: ITCHING SURGICAL HISTORY RIGHT CARPAL TUNNEL 11/2016 BARIATRIC SURGERY 04/2017 LEFT CARPAL MARIEL / ELBOW 05/2017 FAMILY HISTORY FATHER: , DIAGNOSED WITH UNSPECIFIED HEART DISEASE MOTHER: , OTHER MALIGNANT NEOPLASM OF UNSPECIFIED SITE 4 BROTHER(S) - HEALTHY. SOCIAL HISTORY GENERAL: TOBACCO USE ARE YOU A:NONSMOKER OTHERS AT HOME: NONE. DIET: BARIATRIC. LANGUAGE LANGUAGES SPOKEN:MONGOLIAN DOMESTIC VIOLENCE DO YOU FEEL SAFE IN YOUR ENVIRONMENT?YES RECREATIONAL DRUG USE DRUG USE?NO EXERCISE: NONE. LEARNING BARRIERS / SPECIAL NEEDS BARRIERS TO LEARNING?NO HEARING IMPAIRED?NO VISION IMPAIRED?YES COGNITIVELY IMPAIRED?NO :CORRECTIVE LENSES READINESS TO LEARN?YES LEARNING PREFERENCES?NO LEARNING CAPABILITIES PRESENT?YES EMOTIONAL BARRIERS?NO SPECIAL DEVICES?YES :CANE, WALKER, WHEELCHAIR PAIN CLINIC PFS, CLERGY, PUBLIC HEALTH REFERRALS PFS REFERRAL NEEDED?NO CLERGY REFERRAL NEEDED?NO PUBLIC HEALTH REFERRAL NEEDED?NO WAS THE PROVIDER NOTIFIED OF ANY PERTINENT INFO?NO HAS THE PATIENT BEEN EDUCATED REGARDING HIS/HER PLAN OF CARE?YES HAS THE PATIENT BEEN EDUCATED REGARDING PAIN, THE RISK FOR PAIN, THE IMPORTANCE OF EFFECTIVE PAIN MANAGEMENT, AND THE PAIN ASSESSMENT PROCESS?YES LATEX QUESTIONNAIRE LATEX ALLERGY : HAVE YOU EVER DEVELOPED ANY TYPE OF REACTION AFTER HANDLING LATEX PRODUCTS SUCH RUBBER GLOVES, CONDOMS, DIAPHRAGMS, BALLOONS, SOCKS, OR UNDERWEAR?NO LATEX ALLERGY : HAVE YOU EVER DEVELOPED ANY TYPE OF REACTION DURING OR AFTER DENTAL APPOINTMENT, VAGINAL/RECTAL EXAMINATION, SURGICAL PROCEDURE, OR ANY OTHER EXPOSURE?NO LATEX RISK : HAVE YOU EVER HAD ANY DIFFICULTY BREATHING OR HIVES AFTER EATING OR HANDLING ANY FRUITS, OR VEGETABLES; SUCH KIWI, BANANAS, STONE FRUITS, OR CHESTNUTSNO LATEX RISK : DO YOU HAVE A PREVIOUS PERSONAL HISTORY OF MORE THAN NINE SURGERIES, SPINA BIFIDA, OR REPEATED CATHERIZATIONS? NO LATEX RISK : ARE YOU FREQUENTLY EXPOSED TO LATEX PRODUCTS IN YOUR OCCUPATION?NO DATE ASKED : 09/23/2019 CAFFEINE CAFFEINE USE?YES ADVANCE DIRECTIVE ADVANCE DIRECTIVE DISCUSSED WITH PATIENT:YES HAS HCP BROTHER-MARYANNE MARC [phone] TEM[place] [id number] [place] MARITAL STATUS: SINGLE. ALCOHOL SCREENING DID YOU HAVE A DRINK CONTAINING ALCOHOL IN THE PAST YEAR?NO POINTS0 INTERPRETATIONNEGATIVE REVIEWED 01/20/18 1009 BV04/20/18 REVIEWED WITH PT. ADREVIEWED WITH PATIENT 08/27/18 0906 JSREVIEWED WITH PATIENT 11/23/18 1025 JS. HOSPITALIZATION/MAJOR DIAGNOSTIC PROCEDURE SEE ABOVE REVIEW OF SYSTEMS REVIEWED BY: PROVIDER: ISAIAH SEARS . CONSTITUTIONAL: ANY CHANGE IN YOUR MEDICAL CONDITION? NO . CHILLS NO . FEVER NO . INFECTION: DO YOU HAVE NEW INFECTIONS? NO . DO YOU HAVE HISTORY OF MRSA? NO . MUSCULOSKELETAL: ANY NEW PATTERNS OF PAIN OR NUMBNESS? YES, STATES NUMBNESS TO FINGERS ON RIGHT HAND AND RIGHT FOOT . GASTROENTEROLOGY: ANY NEW CHANGE IN BOWEL CONTROL? NO . GENITOURINARY: ANY NEW CHANGE IN BLADDER CONTROL? NO . IS THERE A CHANCE YOU COULD BE ? NO . HEMATOLOGY/LYMPH: DO YOU TAKE ANY BLOOD THINNERS? (FOR EXAMPLE- COUMADIN, PLAVIX, AGGRENOX, PLATEL, PRADAXA, OR XARELTO) YES, PLAVIX . WHEN WAS YOUR LAST DOSE? DATE: 09/23/19TIME: 0700 . NEUROLOGY: HAVE YOU FALLEN IN THE PAST 12 MONTHS? NO . ANY NEW EXTREMITY NUMBNESS OR WEAKNESS? YES, STATES NUMBNESS TO FINGERS ON RIGHT HAND AND RIGHT FOOT . CARDIOLOGY: DO YOU HAVE A PACEMAKER OR DEFIBRILLATOR? NO . RESPIRATORY: HAVE YOU BEEN SICK IN THE PAST WEEK? NO . FEVER NO . FLU LIKE SYMPTOMS? NO . COUGH NO . INTEGUMENTARY: DO YOU HAVE ANY RASHES OR OPEN SORES? NO . ALLERGIC/IMMUNO: ARE YOU ALLERGIC TO IV DYE? NO . ANY NEW ALLERGIES? NO . PSYCHIATRIC: DO YOU HAVE THOUGHTS OF HURTING YOURSELF OR SOMEONE ELSE? NO . ARE YOU ABUSED, NEGLECTED, OR IN AN UNSAFE ENVIRONMENT? NO . ENDOCRINOLOGY: ARE YOU DIABETIC? YES . OTHER: DO YOU NEED ANY PRESCRIPTIONS? NO . IF YES, PLEASE LIST: ____ . ANY NEW PROBLEMS WITH YOUR MEDICATIONS? NO . WHEN DID YOU LAST EAT? ____ . WHEN DID YOU LAST DRINK? ____ . WHAT DID YOU LAST DRINK? ____ . NAME OF PERSON DRIVING YOU HOME? ____ . DO YOU HAVE ANY OTHER QUESTIONS OR CONCERNS NO . VITAL SIGNS WT 311.0 LBS, HT 69 IN, BMI 45.92 INDEX, BP 121/75 MM HG, HR 96 /MIN, RR 18 /MIN, TEMP 96.9 F, OXYGEN SAT % 97%, SAFE IN ENV? (Y/N) YES, NA INITIALS AW 1017, REVIEWED BY: SAWYER. ASSESSMENTS PROTRUSION OF INTERVERTEBRAL DISC OF LUMBOSACRAL REGION - M51.27 TREATMENT PROTRUSION OF INTERVERTEBRAL DISC OF LUMBOSACRAL REGION NOTES: RENE WILL BE IN CONTACT WITH PATIENT REGARDING DCS TRIAL.RUBÉN WILL MAKE APT WITH MARYANNE GOODSON PER DR GONZALES RECOMMENDATIONS.DISCUSSED AT LENGTH OPTION TO DO RIGHT LESI WITH CATH VS RIGHT L2/3 TRANSFORAMINAL INJECTION.POTENTIAL RISKS ASSOCIATED WITH TRANSFORAMINAL APPROACH WERE DISCUSSED TO INCLUDE POTENTIAL FOR PERMANENT PARALYSIS.PATIENT WILL THINK ABOUT OPTION AND CALL TO SCHEDULE NEXT WEEK IF HE DECIDES TO PURSUE INJECTIONS. PREVENTIVE MEDICINE PAIN CLINIC TEACHING: PROCEDURE TEACHING PRINTED AND REVIEWED INFORMATION ON LUMBAR EPIDURAL PROCEDURES WITH PATIENT. ALSO REVIEWED PRE-RPOCEDURE INSTRUCTIONS. PATIENT VERBALIZED AN UNDERSTANDING. JAY SPICER 09/23/2019 11:23:33 AM > . PROCEDURE CODES FA211 ESTABILISHED PATIENT [facility] CHARGE DISPOSITION & COMMUNICATION ELECTRONICALLY SIGNED BY ORION GOMEZ ON 09/23/2019 AT 12:29 PM EST DISCLAIMER : THIS IS A VISIT SUMMARY EXTRACTED FROM THE [employer] CHART. IT IS NOT A COPY OF THE [employer] PROGRESS NOTE. LISA
== END ==
LOC: M PAIN 10:15
PROVIDERS: ATTEND Nurse Practitioner Family
DX: M51.27 Other intervertebral disc displacement, lumbosacral region (principal)

== ENCOUNTER → 2019-11-08 | Outpatient (CLI) | payer MEDICARE ==
[~2019-11-08] MED LIST changes: -GLIM1TAB2 PO; +GLIM1TAB4 PO
== END ==
LOC: M PAIN 15:15
PROVIDERS: ATTEND Anesthesiology
DX: Z53.21 Procedure and treatment not carried out due to patient leaving prior to being seen by health care provider (principal)

== ENCOUNTER → 2019-11-11 | Outpatient (CLI) | payer MEDICARE ==
--- NOTE | 2019-11-24 01:50 | ECWPNPC ---
PATIENT NAME: RUBÉN MARC : 1970 GENDER: MALE VISIT DATE: 11/11/2019 DISCHARGE DATE: 11/11/19 1254 VISIT LOCKED DATE TIME: PHYSICIAN: YOANA MENDOZA MD RESOURCE: YOANA MENDOZA MD REASON FOR APPOINTMENT 1. DISCUSS DCS HISTORY OF PRESENT ILLNESS HISTORY OF PRESENT ILLNESS: PAIN THE PATIENT DESCRIBES THE PAIN... 48 YEAR OLD MALE PATIENT WITH A HISTORY OF CHRONIC LOW BACK AND LEG PAIN. THE PATIENT DESCRIBES THE PAIN BURNING, SHARP, STABBING, SORE, AND CONTINUOUS WITH A PAIN SCORE OF 6-9/10 DEPENDING ON PHYSICAL ACTIVITY. THE PATIENT STATES HIS PAIN BEGINS IN HIS LOW BACK AND RADIATES DOWN MAINLY HIS RIGHT LEG. THE PATIENT SAYS HE HAS BEEN SUFFERING FROM HIS PAIN FOR MORE THAN A YEAR. THE PATIENT SAYS HE WAS SEEN BY MARYANNE FISCHER WHO ADVISED HIM TO CONSIDER THE DCS TRIAL. THE PATIENT SAYS HE WAS SEEN BY DR. NORMAN FOR HIS DCS PSYCHOLOGICAL EVALUATION, WHO ADVISED TO CONTINUE BEING SEEN FOR PSYCHOLOGICAL TREATMENT. PATIENT DENIES UNEXPLAINABLE WEIGHT LOSS, FEVER, CHILLS, NEW CHANGES ON HIS URINARY OR BOWEL CONTROL. FALL RISK SCREENING: SCREENING :NO FALLS REPORTED IN THE LAST YEAR CURRENT MEDICATIONS TAKING TRAMADOL HCL 50 MG TABLET 1 TO 2 TAB ORALLY Q4-6H PRN MDD4 TAKING CETIRIZINE HCL 10 MG TABLET TAKE ONE TABLET BY MOUTH EVERY DAY ORAL TAKING DULOXETINE HCL 60 MG CAPSULE DELAYED RELEASE PARTICLES TAKE ONE CAPSULE BY MOUTH TWICE A DAY ORAL TAKING CLOPIDOGREL BISULFATE 75 MG TABLET TAKE ONE TABLET BY MOUTH EVERY DAY ORAL TAKING FAMOTIDINE 20 MG TABLET TAKE ONE TABLET BY MOUTH EVERY 12 HOURS ORAL TAKING WELLBUTRIN XL 150 MG TABLET EXTENDED RELEASE 24 HOUR 1 TABLET IN THE MORNING ORALLY ONCE A DAY TAKING FLONASE 50 MCG/DOSE INHALER 1 SPRAY IN EACH NOSTRIL NASALLY ONCE A DAY TAKING METFORMIN 500MG ORAL BID TAKING ATORVASTATIN CALCIUM 20 MG TABLET 1 CAP ORALLY DAILY TAKING AMITRIPTYLINE HCL 25 MG TABLET DIRECTED ORALLY TAKING GLIMEPIRIDE 2 MG TABLET 1 TABLET WITH BREAKFAST OR THE FIRST MAIN MEAL OF THE DAY ORALLY ONCE A DAY TAKING LYRICA 150 MG CAPSULE 1 CAPSULE ORALLY TWICE A DAY MDD2, NOTES: NOT CURRENTLY TAKING, OUT NOT-TAKING LINZESS 145 MCG CAPSULE 1 CAPSULE ORALLY ONCE A DAY MEDICATION LIST REVIEWED AND RECONCILED WITH THE PATIENT PAST MEDICAL HISTORY SLEEP APNEA USES BIPAP GERD HIGH CHOLESTEROL HTN ON PLAVIX FOR VENOUS INSUFFICIENCY DM ALLERGIES MODAFINIL: ITCHING SURGICAL HISTORY RIGHT CARPAL TUNNEL 11/2016 BARIATRIC SURGERY 04/2017 LEFT CARPAL MARIEL / ELBOW 05/2017 FAMILY HISTORY FATHER: , DIAGNOSED WITH UNSPECIFIED HEART DISEASE MOTHER: , OTHER MALIGNANT NEOPLASM OF UNSPECIFIED SITE 4 BROTHER(S) - HEALTHY. SOCIAL HISTORY GENERAL: TOBACCO USE ARE YOU A:NONSMOKER OTHERS AT HOME: NONE. DIET: BARIATRIC. LANGUAGE LANGUAGES SPOKEN:[place] DOMESTIC VIOLENCE DO YOU FEEL SAFE IN YOUR ENVIRONMENT?YES RECREATIONAL DRUG USE DRUG USE?NO EXERCISE: NONE. LEARNING BARRIERS / SPECIAL NEEDS BARRIERS TO LEARNING?NO HEARING IMPAIRED?NO VISION IMPAIRED?YES COGNITIVELY IMPAIRED?NO :CORRECTIVE LENSES READINESS TO LEARN?YES LEARNING PREFERENCES?NO LEARNING CAPABILITIES PRESENT?YES EMOTIONAL BARRIERS?NO SPECIAL DEVICES?YES :CANE, WALKER, WHEELCHAIR PAIN CLINIC PFS, CLERGY, PUBLIC HEALTH REFERRALS PFS REFERRAL NEEDED?NO CLERGY REFERRAL NEEDED?NO PUBLIC HEALTH REFERRAL NEEDED?NO WAS THE PROVIDER NOTIFIED OF ANY PERTINENT INFO?YES HAS THE PATIENT BEEN EDUCATED REGARDING HIS/HER PLAN OF CARE?YES HAS THE PATIENT BEEN EDUCATED REGARDING PAIN, THE RISK FOR PAIN, THE IMPORTANCE OF EFFECTIVE PAIN MANAGEMENT, AND THE PAIN ASSESSMENT PROCESS?YES LATEX QUESTIONNAIRE LATEX ALLERGY : HAVE YOU EVER DEVELOPED ANY TYPE OF REACTION AFTER HANDLING LATEX PRODUCTS SUCH RUBBER GLOVES, CONDOMS, DIAPHRAGMS, BALLOONS, SOCKS, OR UNDERWEAR?NO LATEX ALLERGY : HAVE YOU EVER DEVELOPED ANY TYPE OF REACTION DURING OR AFTER DENTAL APPOINTMENT, VAGINAL/RECTAL EXAMINATION, SURGICAL PROCEDURE, OR ANY OTHER EXPOSURE?NO LATEX RISK : HAVE YOU EVER HAD ANY DIFFICULTY BREATHING OR HIVES AFTER EATING OR HANDLING ANY FRUITS, OR VEGETABLES; SUCH KIWI, BANANAS, STONE FRUITS, OR CHESTNUTSNO LATEX RISK : DO YOU HAVE A PREVIOUS PERSONAL HISTORY OF MORE THAN NINE SURGERIES, SPINA BIFIDA, OR REPEATED CATHERIZATIONS? NO LATEX RISK : ARE YOU FREQUENTLY EXPOSED TO LATEX PRODUCTS IN YOUR OCCUPATION?NO DATE ASKED : 11/11/2019 CAFFEINE CAFFEINE USE?YES ADVANCE DIRECTIVE ADVANCE DIRECTIVE DISCUSSED WITH PATIENT:YES HAS HCP BROTHER-MARYANNE MARC [phone] MU-ISM [id number] [place] MARITAL STATUS: SINGLE. ALCOHOL SCREENING DID YOU HAVE A DRINK CONTAINING ALCOHOL IN THE PAST YEAR?NO POINTS0 INTERPRETATIONNEGATIVE REVIEWED 01/20/18 1009 BV04/20/18 REVIEWED WITH PT. ADREVIEWED WITH PATIENT 08/27/18 0906 JSREVIEWED WITH PATIENT 11/23/18 1025 JSREVIEWED WITH PATIENT 11/11/2019 DS. HOSPITALIZATION/MAJOR DIAGNOSTIC PROCEDURE SEE ABOVE REVIEW OF SYSTEMS REVIEWED BY: PROVIDER: . CONSTITUTIONAL: ANY CHANGE IN YOUR MEDICAL CONDITION? NO . CHILLS NO . FEVER NO . INFECTION: DO YOU HAVE NEW INFECTIONS? NO . DO YOU HAVE HISTORY OF MRSA? NO . MUSCULOSKELETAL: ANY NEW PATTERNS OF PAIN OR NUMBNESS? YES, PT STATES THAT HE IS STARTING TO GET NUMBNESS IN RIGHT FOOT AND RIGHT SMALL FINGERS . GASTROENTEROLOGY: ANY NEW CHANGE IN BOWEL CONTROL? NO . GENITOURINARY: ANY NEW CHANGE IN BLADDER CONTROL? NO . IS THERE A CHANCE YOU COULD BE ? NO . HEMATOLOGY/LYMPH: DO YOU TAKE ANY BLOOD THINNERS? (FOR EXAMPLE- COUMADIN, PLAVIX, AGGRENOX, PLATEL, PRADAXA, OR XARELTO) YES, PLAVIX 11-11-19 1045 . WHEN WAS YOUR LAST DOSE? DATE: TIME: . NEUROLOGY: HAVE YOU FALLEN IN THE PAST 12 MONTHS? NO . ANY NEW EXTREMITY NUMBNESS OR WEAKNESS? YES . CARDIOLOGY: DO YOU HAVE A PACEMAKER OR DEFIBRILLATOR? NO . RESPIRATORY: HAVE YOU BEEN SICK IN THE PAST WEEK? NO . FEVER NO . FLU LIKE SYMPTOMS? NO . COUGH NO . INTEGUMENTARY: DO YOU HAVE ANY RASHES OR OPEN SORES? NO . ALLERGIC/IMMUNO: ARE YOU ALLERGIC TO IV DYE? NO . ANY NEW ALLERGIES? NO . PSYCHIATRIC: DO YOU HAVE THOUGHTS OF HURTING YOURSELF OR SOMEONE ELSE? NO . ARE YOU ABUSED, NEGLECTED, OR IN AN UNSAFE ENVIRONMENT? NO . ENDOCRINOLOGY: ARE YOU DIABETIC? YES . OTHER: DO YOU NEED ANY PRESCRIPTIONS? NO . IF YES, PLEASE LIST: ____ . ANY NEW PROBLEMS WITH YOUR MEDICATIONS? NO . WHEN DID YOU LAST EAT? ____ . WHEN DID YOU LAST DRINK? ____ . WHAT DID YOU LAST DRINK? ____ . NAME OF PERSON DRIVING YOU HOME? ____ . DO YOU HAVE ANY OTHER QUESTIONS OR CONCERNS FLU SHOT 11-01-19 . VITAL SIGNS WT 313.8 LBS, HT 69 IN, BMI 46.34 INDEX, BP 135/73 MM HG, HR 74 /MIN, RR 18 /MIN, TEMP 97.8 F, OXYGEN SAT % 98%, SAFE IN ENV? (Y/N) Y, NA INITIALS CT 11:18, REVIEWED BY: SOM. EXAMINATION GENERAL EXAMINATION: PATIENT IS ALERT O X 3 AND COOPERATIVE. ANTALGIC WALK. PATIENT IS LIMPING FROM THE RIGHT LEG, WHICH IS WEAKER AT EXTENSION AND FLEXION. STRAIGHT LEG RAISE OF THE RIGHT LEG IS POSITIVE AT 45 DEGREES FOR RADICULOPATHY. MRI OF THE LUMBAR SPINE DONE ON 09/09/2019 SHOWS BULGING DISC AT L2-L3 AND L3-L4 LEVELS. ASSESSMENTS INTERVERTEBRAL DISC DISORDERS WITH RADICULOPATHY, LUMBAR REGION - M51.16 (PRIMARY) TREATMENT INTERVERTEBRAL DISC DISORDERS WITH RADICULOPATHY, LUMBAR REGION CLINICAL NOTES: WE DISCUSSED SEVERAL ISSUES WITH MR. MARC' PAIN MANAGEMENT CASE. THE PATIENT IS INTERESTED IN MOVING FORWARD WITH HIS DCS TRIAL SCHEDULED FOR NEXT MONTH, ON DECEMBER 12. THEREFORE, I AM REQUESTING FOR THE PATIENT TO HAVE A THORACIC MRI DONE, AND I WILL DISCUSS WITH THE RADIOLOGISTS WHO PERFORMED THE PATIENT'S LUMBAR AND THORACIC MRI'S TO ENSURE THERE IS ADEQUATE SPACE FOR THE DCS CABLES TO PASS THROUGH DURING THE TRIAL. I HAVE THE MEDICATION HOLD CLEARANCE SENT BY DR. CANELA THAT STATES THE PATIENT CAN STOP PLAVIX FOR SEVEN DAYS BEFORE THE DCS TRIAL. WE DISCUSSED ABOUT THE PATIENT'S UPCOMING LUMBAR EPIDURAL SCHEDULED ON 11/24/2019. THE PATIENT WILL FOLLOW UP WITH THE NURSE PRACTITIONER IN SEVERAL WEEKS TO SEE HOW THE LUMBAR EPIDURAL IS HELPING WITH HIS PAIN AND TO GO OVER THE THORACIC MRI RESULTS. INSTRUCTIONS WERE GIVEN, QUESTIONS WERE ANSWERED, PATIENT REPORTS UNDERSTANDING AND AGREES WITH THE PLAN. I, RENE CURIEL, DOCUMENTED THE ABOVE INFORMATION ACTING A SCRIBE FOR DR. MENDOZA. I HAVE REVIEWED THE ABOVE DOCUMENT, WRITTEN BY RENE OROZCO AND I VERIFY THAT IT IS ACCURATE. . DIAGNOSTIC IMAGING [facility] MRI SPINE,THORACIC WITHOUT [id number] PROCEDURE CODES FA211 ESTABILISHED PATIENT [facility] CHARGE G8427 CURRENT MEDS W/DOSAGES DOCUMENTED G8730 PAIN ASSESS POS TOOL F/U PLAN DOC DISPOSITION & COMMUNICATION ELECTRONICALLY SIGNED BY YOANA MENDOZA MD, MD ON 11/23/2019 AT 02:55 PM EST DISCLAIMER : THIS IS A VISIT SUMMARY EXTRACTED FROM THE [employer] CHART. IT IS NOT A COPY OF THE [employer] PROGRESS NOTE. MTDD
== END ==
LOC: M PAIN 11:30
PROVIDERS: ATTEND Anesthesiology
DX: M51.16 Intervertebral disc disorders with radiculopathy, lumbar region (principal); G89.29 Other chronic pain; G47.30 Sleep apnea, unspecified; I10 Essential (primary) hypertension; E11.9 Type 2 diabetes mellitus without complications; Z98.84 Bariatric surgery status; Z88.8 Allergy status to other drugs, medicaments and biological substances; Z79.01 Long term (current) use of anticoagulants; E66.01 Morbid (severe) obesity due to excess calories; Z68.42 Body mass index [BMI] 45.0-49.9, adult; Z79.84 Long term (current) use of oral hypoglycemic drugs; Z79.891 Long term (current) use of opiate analgesic; Z79.899 Other long term (current) drug therapy

== ENCOUNTER → 2019-11-25 | Outpatient (CLI) | payer MEDICARE ==
[~2019-11-25] MED LIST changes: +CETI5SOL3 PO; +LINZ145C PO; +VITA-157 PO
--- NOTE | 2019-12-09 01:26 | ECWPNPC ---
PATIENT NAME: RUBÉN MARC : 1970 GENDER: MALE VISIT DATE: 11/25/2019 DISCHARGE DATE: 11/25/19 1109 VISIT LOCKED DATE TIME: PHYSICIAN: YOANA MENDOZA MD RESOURCE: YOANA MENDOZA MD REASON FOR APPOINTMENT 1. DCS TRIAL PRE-OP HISTORY OF PRESENT ILLNESS HISTORY OF PRESENT ILLNESS: PAIN THE PATIENT DESCRIBES THE PAIN... 48-YEAR-OLD MALE PATIENT WITH A HISTORY OF CHRONIC LOW BACK AND RIGHT LEG PAIN. THE PATIENT DESCRIBES THE PAIN ACHING, SHARP, STABBING, SHOOTING, DAILY AND CONTINUOUS WITH A PAIN SCORE OF 8-10/10 DEPENDING ON PHYSICAL ACTIVITY. THE PATIENT STATES THAT HE HAS BEEN SUFFERING WITH THIS PAIN FOR SEVERAL YEARS. THE PATIENT STATES THAT THE PAIN BEGINS IN HIS LOWER BACK AND RADIATES DOWN HIS RIGHT LEG. THE PAIN WORSENS WITH ACTIVITY AND AFFECTS HIS ABILITY TO GROCERY SHOP, CLEAN HIS HOME AND CARRY OUT DAILY ACTIVITIES. PATIENT DENIES UNEXPLAINABLE WEIGHT LOSS, FEVER, CHILLS, NEW CHANGES ON HIS URINARY OR BOWEL CONTROL. FALL RISK SCREENING: SCREENING :NO FALLS REPORTED IN THE LAST YEAR CURRENT MEDICATIONS TAKING TRAMADOL HCL 50 MG TABLET 1 TO 2 TAB ORALLY Q4-6H PRN MDD4 TAKING CETIRIZINE HCL 10 MG TABLET TAKE ONE TABLET BY MOUTH EVERY DAY ORAL TAKING DULOXETINE HCL 60 MG CAPSULE DELAYED RELEASE PARTICLES TAKE ONE CAPSULE BY MOUTH TWICE A DAY ORAL TAKING CLOPIDOGREL BISULFATE 75 MG TABLET TAKE ONE TABLET BY MOUTH EVERY DAY ORAL TAKING FAMOTIDINE 20 MG TABLET TAKE ONE TABLET BY MOUTH EVERY 12 HOURS ORAL TAKING WELLBUTRIN XL 150 MG TABLET EXTENDED RELEASE 24 HOUR 1 TABLET IN THE MORNING ORALLY ONCE A DAY TAKING FLONASE 50 MCG/DOSE INHALER 1 SPRAY IN EACH NOSTRIL NASALLY ONCE A DAY TAKING METFORMIN 500MG ORAL BID TAKING ATORVASTATIN CALCIUM 20 MG TABLET 1 CAP ORALLY DAILY TAKING AMITRIPTYLINE HCL 25 MG TABLET DIRECTED ORALLY TAKING GLIMEPIRIDE 2 MG TABLET 1 TABLET WITH BREAKFAST OR THE FIRST MAIN MEAL OF THE DAY ORALLY ONCE A DAY TAKING LYRICA 150 MG CAPSULE 1 CAPSULE ORALLY TWICE A DAY MDD2 NOT-TAKING LINZESS 145 MCG CAPSULE 1 CAPSULE ORALLY ONCE A DAY MEDICATION LIST REVIEWED AND RECONCILED WITH THE PATIENT PAST MEDICAL HISTORY SLEEP APNEA USES BIPAP GERD HIGH CHOLESTEROL HTN ON PLAVIX FOR VENOUS INSUFFICIENCY DM ALLERGIES MODAFINIL: ITCHING - ALLERGY SURGICAL HISTORY RIGHT CARPAL TUNNEL 11/2016 BARIATRIC SURGERY 04/2017 LEFT CARPAL MARIEL / ELBOW 05/2017 FAMILY HISTORY FATHER: , DIAGNOSED WITH UNSPECIFIED HEART DISEASE MOTHER: , OTHER MALIGNANT NEOPLASM OF UNSPECIFIED SITE 4 BROTHER(S) - HEALTHY. SOCIAL HISTORY GENERAL: TOBACCO USE ARE YOU A:NONSMOKER OTHERS AT HOME: NONE. DIET: BARIATRIC. LANGUAGE LANGUAGES SPOKEN:YAKUT DOMESTIC VIOLENCE DO YOU FEEL SAFE IN YOUR ENVIRONMENT?YES RECREATIONAL DRUG USE DRUG USE?NO EXERCISE: NONE. LEARNING BARRIERS / SPECIAL NEEDS BARRIERS TO LEARNING?NO HEARING IMPAIRED?NO VISION IMPAIRED?YES :CORRECTIVE LENSES COGNITIVELY IMPAIRED?NO READINESS TO LEARN?YES LEARNING PREFERENCES?NO LEARNING CAPABILITIES PRESENT?YES EMOTIONAL BARRIERS?NO SPECIAL DEVICES?YES :CANE, WALKER, WHEELCHAIR AERONAUTICS COMMISSION DIRECTOR NEEDED?NO PAIN CLINIC PFS, CLERGY, PUBLIC HEALTH REFERRALS PFS REFERRAL NEEDED?NO CLERGY REFERRAL NEEDED?NO PUBLIC HEALTH REFERRAL NEEDED?NO WAS THE PROVIDER NOTIFIED OF ANY PERTINENT INFO?YES HAS THE PATIENT BEEN EDUCATED REGARDING HIS/HER PLAN OF CARE?YES HAS THE PATIENT BEEN EDUCATED REGARDING PAIN, THE RISK FOR PAIN, THE IMPORTANCE OF EFFECTIVE PAIN MANAGEMENT, AND THE PAIN ASSESSMENT PROCESS?YES LATEX QUESTIONNAIRE LATEX ALLERGY : HAVE YOU EVER DEVELOPED ANY TYPE OF REACTION AFTER HANDLING LATEX PRODUCTS SUCH RUBBER GLOVES, CONDOMS, DIAPHRAGMS, BALLOONS, SOCKS, OR UNDERWEAR?NO LATEX ALLERGY : HAVE YOU EVER DEVELOPED ANY TYPE OF REACTION DURING OR AFTER DENTAL APPOINTMENT, VAGINAL/RECTAL EXAMINATION, SURGICAL PROCEDURE, OR ANY OTHER EXPOSURE?NO LATEX RISK : HAVE YOU EVER HAD ANY DIFFICULTY BREATHING OR HIVES AFTER EATING OR HANDLING ANY FRUITS, OR VEGETABLES; SUCH KIWI, BANANAS, STONE FRUITS, OR CHESTNUTSNO LATEX RISK : DO YOU HAVE A PREVIOUS PERSONAL HISTORY OF MORE THAN NINE SURGERIES, SPINA BIFIDA, OR REPEATED CATHERIZATIONS? NO LATEX RISK : ARE YOU FREQUENTLY EXPOSED TO LATEX PRODUCTS IN YOUR OCCUPATION?NO DATE ASKED : 11/25/2019 CAFFEINE CAFFEINE USE?YES ADVANCE DIRECTIVE ADVANCE DIRECTIVE DISCUSSED WITH PATIENT:YES HAS HCP BROTHER-MARYANNE MARC [phone] MU-ISM [id number] MORMON MARITAL STATUS: SINGLE. ALCOHOL SCREENING DID YOU HAVE A DRINK CONTAINING ALCOHOL IN THE PAST YEAR?NO POINTS0 INTERPRETATIONNEGATIVE REVIEWED 01/20/18 1009 BV04/20/18 REVIEWED WITH PT. JULITAD WITH PATIENT 08/27/18 0906 JSREVIEWED WITH PATIENT 11/23/18 1025 JSREVIEWED WITH PATIENT 11/11/2019 DS. HOSPITALIZATION/MAJOR DIAGNOSTIC PROCEDURE SEE ABOVE REVIEW OF SYSTEMS REVIEWED BY: PROVIDER: YOANA MENDOZA MD . CONSTITUTIONAL: ANY CHANGE IN YOUR MEDICAL CONDITION? NO . CHILLS NO . FEVER NO . INFECTION: DO YOU HAVE NEW INFECTIONS? NO . DO YOU HAVE HISTORY OF MRSA? NO . MUSCULOSKELETAL: ANY NEW PATTERNS OF PAIN OR NUMBNESS? NO . GASTROENTEROLOGY: ANY NEW CHANGE IN BOWEL CONTROL? NO . GENITOURINARY: ANY NEW CHANGE IN BLADDER CONTROL? NO . IS THERE A CHANCE YOU COULD BE ? NO . HEMATOLOGY/LYMPH: DO YOU TAKE ANY BLOOD THINNERS? (FOR EXAMPLE- COUMADIN, PLAVIX, AGGRENOX, PLATEL, PRADAXA, OR XARELTO) YES, PLAVIX . WHEN WAS YOUR LAST DOSE? DATE: TIME: . NEUROLOGY: HAVE YOU FALLEN IN THE PAST 12 MONTHS? NO . ANY NEW EXTREMITY NUMBNESS OR WEAKNESS? NO . CARDIOLOGY: DO YOU HAVE A PACEMAKER OR DEFIBRILLATOR? NO . RESPIRATORY: HAVE YOU BEEN SICK IN THE PAST WEEK? NO . FEVER NO . FLU LIKE SYMPTOMS? NO . COUGH NO . INTEGUMENTARY: DO YOU HAVE ANY RASHES OR OPEN SORES? NO . ALLERGIC/IMMUNO: ARE YOU ALLERGIC TO IV DYE? NO . ANY NEW ALLERGIES? NO . PSYCHIATRIC: DO YOU HAVE THOUGHTS OF HURTING YOURSELF OR SOMEONE ELSE? NO . ARE YOU ABUSED, NEGLECTED, OR IN AN UNSAFE ENVIRONMENT? NO . ENDOCRINOLOGY: ARE YOU DIABETIC? YES . OTHER: DO YOU NEED ANY PRESCRIPTIONS? NO . IF YES, PLEASE LIST: ____ . ANY NEW PROBLEMS WITH YOUR MEDICATIONS? NO . WHEN DID YOU LAST EAT? ____ . WHEN DID YOU LAST DRINK? ____ . WHAT DID YOU LAST DRINK? ____ . NAME OF PERSON DRIVING YOU HOME? ____ . DO YOU HAVE ANY OTHER QUESTIONS OR CONCERNS DIFFERENT PAIN MED THAN TRAMADOL . VITAL SIGNS WT 309.0 LBS, HT 69 IN, BMI 45.63 INDEX, BP 137/83 MM HG, HR 80 /MIN, RR 18 /MIN, TEMP 97.9 F, OXYGEN SAT % 96, SAFE IN ENV? (Y/N) GEGE. AMBER ZHANG LPN II @ 9158. EXAMINATION GENERAL EXAMINATION: PATIENT IS ALERT O X 3 AND COOPERATIVE. LUNGS CLEAR, TO AUSCULTATION. HEART: NO MURMURS OR GALLOPS; FACIAL CRANIAL NERVES ARE GROSSLY NORMAL. GOOD SYMMETRY OF FACIAL MUSCLE MOVEMENT. NORMAL VISUAL BALDERAS. ALTALGIC GAIT. THE PATIENT HAS A LIMP IN HIS RIGHT LEG. THE RIGHT LEG IS WEAKER AT EXTENSION AND FLEXION. STRAIGHT LEG RAISE OF THE RIGHT LEG IS POSITIVE AT 45 DEGREES FOR RADICULAPATHY. MRI OF THE LUMBAR SPINE DONE ON 09/09/2019 SHOWS BULGING DISC AT L3-L4 AND L4-L5. ASSESSMENTS INTERVERTEBRAL DISC DISORDERS WITH RADICULOPATHY, LUMBAR REGION - M51.16 (PRIMARY) TREATMENT INTERVERTEBRAL DISC DISORDERS WITH RADICULOPATHY, LUMBAR REGION CLINICAL NOTES: WE DISCUSSED SEVERAL ISSUES WITH MR. MARC'S PAIN MANAGEMENT CASE. THE PATIENT WISHES TO MOVE FORWARD WITH THE DCS TRIAL SCHEDULED FOR 12/05/2019. MR. MARC WILL HAVE A THORACIC MRI 11/25/2019, AND I WILL DISCUSS THE RESULTS OF THE THORACIC MRI AND LUMBAR MRI WITH THE PATIENT'S RADIOLOGISTS NEXT WEEK TO ENSURE THERE IS ADEQUATE SPACE FOR THE DCS CABLES TO PASS THROUGH DURING THE TRIAL. THE PATIENT AGREES TO STOP ASPIRIN, ALL NSAIDS AND ALL BLOOD THINNERS, INCLUDING PLAVIX, PRIOR TO THE PROCEDURE. THE PATIENT WILL FOLLOW UP WITH ME TO HAVE THE CABLES REMOVED ON 12/09/2019. INSTRUCTIONS WERE GIVEN, QUESTIONS WERE ANSWERED, PATIENT REPORTS UNDERSTANDING AND AGREES WITH THE PLAN. I, CATALINO MILLER, DOCUMENTED THE ABOVE INFORMATION ACTING A SCRIBE FOR DR. MENDOZA. I HAVE REVIEWED THE ABOVE DOCUMENT, WRITTEN BY CATALINO OROZCO AND I VERIFY THAT IT IS ACCURATE. OTHERS START KEFLEX CAPSULE, 500 MG, 1 CAPSULE, ORALLY, EVERY 12 HRS, 10 DAY(S), 20 PROCEDURE CODES FA211 ESTABILISHED PATIENT [facility] FACILITY CHARGE [id number] OFFICE/OUTPATIENT VISIT EST G8427 CURRENT MEDS W/DOSAGES DOCUMENTED G8730 PAIN ASSESS POS TOOL F/U PLAN DOC DISPOSITION & COMMUNICATION ELECTRONICALLY SIGNED BY YOANA MENDOZA MD, MD ON 12/08/2019 AT 04:31 PM EST DISCLAIMER : THIS IS A VISIT SUMMARY EXTRACTED FROM THE [employer] CHART. IT IS NOT A COPY OF THE [employer] PROGRESS NOTE. MTDD
== END ==
LOC: M PAIN 09:45
PROVIDERS: ATTEND Anesthesiology
DX: M51.16 Intervertebral disc disorders with radiculopathy, lumbar region (principal); G89.29 Other chronic pain; G47.30 Sleep apnea, unspecified; I10 Essential (primary) hypertension; E11.9 Type 2 diabetes mellitus without complications; Z98.84 Bariatric surgery status; Z88.8 Allergy status to other drugs, medicaments and biological substances; E66.01 Morbid (severe) obesity due to excess calories; Z68.42 Body mass index [BMI] 45.0-49.9, adult; Z79.891 Long term (current) use of opiate analgesic; Z79.899 Other long term (current) drug therapy
CPT/HCPCS: 72146; G0463

== ENCOUNTER → 2019-11-25 | Outpatient (CLI) | payer MEDICARE ==
--- NOTE | 2019-11-25 17:38 | REP ---
MRI thoracic spine without contrast: History: Pain in the thoracic spine. Evaluate for neurostimulator placement. Technique: Sagittal and axial T1 and T2-weighted scans are acquired in the usual fashion with and without fat saturation. Sequences include spin echo, turbo spin-echo, and STIR imaging sequences. MRI findings: Thoracic vertebral body heights are preserved. Alignment is normal. The thoracic cord is normal in coarse, caliber and signal intensity on T1 and T2-weighted scans. The dorsal epidural space is unremarkable. There is no evidence of neural foraminal lesion. There are mild degenerative disc changes. At the T10-T11, there is diffuse disc bulging. This effaces the ventral subarachnoid space without cord compression. At T9-10, there is a small broad-based right paracentral focal disc protrusion effacing the ventral subarachnoid space. At T7-8 on the left there is a paracentral focal small focal disc protrusion. At T6-7 there is mild diffuse disc bulging. A new At C7-T1 there is a right posterior disc bulging. Impression: Mild degenerative disc changes. Multilevel disc bulges. Left paracentral disc protrusion T7-8 and right paracentral disc protrusion T9-10. Electronically Signed by Leroy Obando MD 11/25/2019 05:30 P
== END ==
LOC: M PLARAD 15:25
PROVIDERS: ATTEND Anesthesiology
DX: M51.24 Other intervertebral disc displacement, thoracic region (principal)

== ENCOUNTER 2019-12-05 11:02 | Day surgery (SDC) | payer MEDICARE ==
[~2019-12-05] VITALS: Ht 175.3 cm; Wt 139.7 kg
[~2019-12-05 11:02] MED LIST changes: +LR 1,000 ML IV ONE; +ceFAZolin SOD 1 GM in D5W MINI-BAG PLUS 50 ML IV ONE
[2019-12-05] MEDS ORDERED: fentaNYL 100 MCG/2 ML INJECTION (J3010) As Ordered ONE (12:03)
[2019-12-05] MEDS ORDERED: MIDAZOLAM INJ 2 MG/2 ML VIAL (J2250) As Ordered ONE (12:03)
[2019-12-05 12:08] LABS: ALBUMIN 4.1 GM/DL (3.2-5.2); ALT/SGPT 54 U/L (12-78); BILIRUBIN,TOTAL 0.3 MG/DL (0.2-1.0); BLOOD UREA NITROGEN 12 MG/DL (7-18); CALCIUM LEVEL 8.6 MG/DL (8.5-10.1); CARBON DIOXIDE LEVEL 32 MEQ/L (21-32); CHLORIDE LEVEL 104 MEQ/L (98-107); CREATININE FOR GFR 1.07 MG/DL (0.70-1.30); GLOMERULAR FILTRATION RATE > 60.0 (>56); GLUCOSE, FASTING 96 MG/DL (70-100); POTASSIUM SERUM 3.7 MEQ/L (3.5-5.1); SODIUM LEVEL 139 MEQ/L (136-145); TOTAL PROTEIN 7.5 GM/DL (6.4-8.2)
[2019-12-05] MEDS ORDERED: LIDOCAINE W/EPINEPHRINE 1% 20ML VIAL As Ordered ONE (12:39)
--- NOTE | 2019-12-05 14:53 | REP ---
Partial thoracolumbar spine series: Three views. History: Dorsal column stimulator trial. 7 minutes 21 seconds of fluoroscopy time is reported. Findings: A sequence of three last image hold fluoroscopically obtained spot radiographs of the thoracic spine document dorsal column stimulator lead position. Electronically Signed by Leroy Obando MD 12/05/2019 03:22 P
[2019-12-05] MEDS ORDERED: ONDANSETRON 4MG/2ML VIAL (J2405) IV PRN (15:00)
[2019-12-05] MEDS ORDERED: PERCOCET 5MG/325MG TAB PO PRN (15:00)
[2019-12-05] MEDS ORDERED: METOCLOPRAMIDE INJ 10MG/2ML VIAL (J2765) IV PRN (15:00)
[2019-12-05] MEDS ORDERED: fentaNYL 100 MCG/2 ML INJECTION (J3010) IV PRN (15:00)
[2019-12-05] MEDS ORDERED: LR 1,000 ML IV SCH (15:00)
[2019-12-05 15:45] VITALS: BP 144/86
[2019-12-05] MEDS ORDERED: GLUCAGON FOR INJ 1 MG VIAL (J1610) SC PRN (15:45)
[2019-12-05] MEDS ORDERED: GLUCOSE 4 GM CHEW TABLET PO PRN (15:45)
[2019-12-05] MEDS ORDERED: DEXTROSE 50% 50 ML SYRINGE IV PRN (15:45)
[2019-12-05] MEDS ORDERED: CYCLOBENZAPRINE 10 MG TAB PO PRN (15:45)
--- NOTE | 2019-12-05 15:50 | CR.PDOC ---
General Date of Consultation: Dec 05, 2019 Consultation REASON FOR CONSULTATION/CHIEF COMPLAINT: s/p Spinal Cord Stimulator implanted HISTORY OF PRESENT ILLNESS: Mr. Nayak is a 48 year old male with a long history of low back pain with radiculopathy. He has tried several outpatient treatments over the years and has failed treatment. Patient has experienced worsening low back pain with radiculopathy (down the right leg), every day for most hours of the day. Pain at its worst was 9/10. He was limited to ~ 200 steps. Pt reported that his LBP problems are worsened by peripheral neuropathy, right worse than left. Pt current pain is 6/10 but he attributes that to having the procedure. ALLERGIES: Please see below. HOME MEDICATIONS: Please see below. PAST MEDICAL HISTORY: 1. DMII, with peripheral neuropathy 2. History of Hypertension 3. Dyslipidemia 4. GERD 5. Morbid Obesity 6. DASHAWN with BiPAP PAST SURGICAL HISTORY: 1. Carpal tunnel release 2. Gastric bypass 3. Ulnar release - left elbow FAMILY HISTORY: Father: HTN, ?DM Mother: Cancer (?Stomach) Siblings: Brothers - DM SOCIAL HISTORY: Tobacco use: Denied ETOH: Denied Illicit drug use: Denied IV drug use: Denied Other relevant social factors: None REVIEW OF SYSTEMS: negative except as noted in HPI PHYSICAL EXAMINATION: VITAL SIGNS: Please see below. General: No acute distress, Alert Eyes: Normal sclera, EOMI, ALEXIS HENT: Atraumatic, neck supple, moist mucous membranes Cardiovascular: Normal rate, normal rhythm. No murmurs appreciated. Pulmonary: Clear to auscultation b/l, no wheezing GI: Soft, nontender, nondistended Skin: Warm and dry Neuro: CN grossly intact. No focal deficits. Psych: oriented x 3 LABORATORY DATA: Please see below. ASSESSMENT/PLAN: 1. Low back pain with radiculopathy - s/p spinal cord stimulator implantation - pain/continued management per surgery. 1. DMII, with peripheral neuropathy - Hold all oral anti-glycemics - start ISS with FBS achs - consistent carbs diet 2. History of Hypertension - currently controlled, not taking hypertensive medication 3. Dyslipidemia - resume Statin - Plavix on hold following surgery 4. GERD - continue Famotidine 5. Morbid Obesity - complicates care 6. DASHAWN with BiPAP - pt has BiPAP with him for use at night Vital Signs/I&O Vital Signs Date Time Temp Pulse Resp B/P (MAP) Pulse Ox O2 Delivery O2 Flow Rate FiO2 12/05/19 15:10 97.9 65 18 131/70 (90) 98 Room Air Laboratory Data Labs 24H Laboratory Tests 2 12/05/19 11:27: Anion Gap 3L, Glomerular Filtration Rate > 60.0, Calcium Level 8.6, Total Bilirubin 0.3, Aspartate Amino Transf (AST/SGOT) 31, Alanine Aminotransferase (ALT/SGPT) 54, Alkaline Phosphatase 134H, Total Protein 7.5, Albumin 4.1, Albumin/Globulin Ratio 1.21 12/05/19 11:54: Bedside Glucose (Misc Panel) 87 CBC/BMP Laboratory Tests 12/05/19 11:27 Allergies Coded Allergies: modafinil (Verified Allergy, Intermediate, ITCHING, 11/28/19) ENVIROMENTAL (Verified Allergy, Unknown, 11/28/19) Home Medications Scheduled Amitriptyline HCl (Amitriptyline HCl) 50 Mg Tab, 50 MG PO QPM, (Reported) Atorvastatin Calcium (Atorvastatin Calcium) 20 Mg Tab, 20 MG PO DAILY, (Reported) Bupropion Hcl (Bupropion Xl) 150 Mg Tab, DAILY, (Reported) Calcium Citrate/Vitamin D3 (Citracal + D Maximum Caplet) 1 Tab Tab, 1 TAB PO BID, (Reported) Cetirizine Hcl (Cetirizine HCl) 1 Mg/1 Ml Solution, 10 MG PO DAILY, (Reported) Clopidogrel Bisulfate (Clopidogrel) 75 Mg Tab, DAILY, (Reported) Docusate Sodium (Colace) 100 Mg Cap, 100 MG PO BID, (Reported) Duloxetine Hcl (Cymbalta) 60 Mg Cap, 60 MG PO BID, (Reported) Famotidine (Famotidine) 20 Mg Tab, BID, (Reported) Glimepiride (Glimepiride) 1 Mg Tab, 1 MG PO DAILY, (Reported) Linaclotide (Linzess) 145 Mcg Capsule, 1 CAP PO DAILY, (Reported) Metformin HCl (Metformin HCl) 1,000 Mg Tab, 1,000 MG PO BID, (Reported) Pregabalin (Lyrica) 50 Mg Cap, 150 MG PO BID, (Reported) Scheduled PRN Cyclobenzaprine HCl (Cyclobenzaprine HCl) 10 Mg Tab, 10 MG PO TIDP PRN for PAIN, #15 (Reported) Attending Note Attending Note I have reviewed the documentation and assessed the patient independently. I have made necessary revisions as needed. I agree with the findings, assessment and plan stated above. - Patient was seen and examined at the bedside - Currently has no new complaints - Doing well post surgery - Continue with home medications - Anticipate discharge within the next 24 hours MICHAEL MURRELL PA-C Dec 05, 2019 15:50 JUSTINO CANELA MD Dec 05, 2019 18:08
[2019-12-05] MEDS ORDERED: oxyCODONE 5MG TAB PO PRN (16:00)
[2019-12-05 16:15] VITALS: BP 140/76
[2019-12-05] MEDS: HumaLOG INSULIN (NovoLOG) PER UNIT SC SCH (16:48)
[2019-12-05 17:16] VITALS: BP 136/77
[2019-12-05 18:07] VITALS: BP 132/74
[2019-12-05 19:15] VITALS: BP 151/83
[2019-12-05] MEDS ORDERED: ceFAZolin SOD 1 GM in D5W MINI-BAG PLUS 50 ML IV ONE (20:00)
--- NOTE | 2019-12-05 20:05 | ROPAIN ---
DATE OF PROCEDURE: 12/05/2019 PREOPERATIVE DIAGNOSIS: Lumbar disc disorder with radiculopathy. POSTOPERATIVE DIAGNOSIS: Lumbar disc disorder with radiculopathy. PROCEDURE: Spinal column stimulator trial. ANESTHESIA: Local with monitor anesthesia care. SURGEON: Dr. Luis M Flores. PREOPERATIVE NOTE: Mr. Nayak is a 48-year-old male patient with history of chronic low back and leg pain. Patient has received interventional therapy and medication management, and the back and leg pain has persisted. Patient has expressed that he would like to have a spinal column stimulator trial. He is in the operating room for such purpose. Patient denies fevers, chills, new changes in his urinary or bowel control. PROCEDURE NOTE: The patient was brought to the procedure room. He placed in the prone position. Thoracolumbar area was cleaned with Betadine solution and draped asceptically. The procedure was done under sterile conditions under fluoroscopy. Target point was selected at the interlaminar level of T12-L1. Lidocaine was used to numb the skin and the subcutaneous tissue below it. An epidural Tuohy needle 14 gauge was advanced until the right lamina of L1 was touched and then by the loss of resistance technique, the epidural medial and posterior aspect of the epidural space was reached 8 cm deep into the skin by the loss of resistance technique. Then, a 16 contact lead from [employer] was advanced through this needle and advanced to the posterior and medial aspect of the epidural space. The lead was advanced to the level of T7. A decision was made to place a second lead parallel. On this occasion, target point was selected at the interlaminar level of T12-L1. Lidocaine was used to numb the skin and the subcutaneous tissue below it. A epidural Tuohy needle from [email or web address] 14 gauge was advanced until the left lamina of L1 was touched, and then by the loss of resistance technique, the epidural space was reached 8 cm deep into the skin by the loss of resistance technique. A second 16 contact lead from [employer] was advanced through this second needle, and it was advanced to the posterior and medial aspect of the epidural space and placed parallel to the first lead. When both leads were parallel to each other, extension cables were attached to the leads and were attached to the computer system of [employer]. I started to do programming, which was a simple programming of 30 minutes, where I changed the position of the leads, the contact use, voltage use. Final stimulation of the patient was done at the level of T6, T7 and T8. AP and lateral views under x-ray were done and kept at the patient's electronic medical record for future reference. The stylus were removed. Extension cables were removed and the leads were attached to the patient's skin using Steri-Strips and then Tegaderm. Patient was sent to the recovery room for further observation. He was moving extremities and doing well. There were no complications during the procedure. Trial will start today. There were no complications.
[2019-12-05] MEDS: DOCUSATE SODIUM 100 MG CAP PO SCH (20:51)
[2019-12-05] MEDS: PREGABALIN 75 MG CAP(LYRICA) PO SCH (20:51)
[2019-12-05] MEDS: FAMOTIDINE 20 MG TAB PO SCH (20:51)
--- NOTE | 2019-12-05 20:54 | ECGEPIP ---
[facility] Test Date: 2019-12-05 Pat Name: RUBÉN MARC Department: Room: - Gender: Male Video Production Assistant: SHONA : 1970 Requested By: Ismael Fan Order Number: [id number] Reading MD: Gena Diego Measurements Intervals [place] Rate: 61 P: 28 [place]: 160 QRS: 7 QRSD: 112 T: 15 QT: 405 QTc: 410 Interpretive Statements SINUS RHYTHM MODERATE INTRAVENTRICULAR CONDUCTION DELAY CANNOR R/O OLD IWMI NO CHANGE SINCE 10/21/2016 Electronically Signed on 12-05-2019 20:54:19 EST by Gena Diego
[2019-12-05] MEDS ORDERED: ATORVASTATIN 20 MG TAB PO SCH (21:00)
[2019-12-05] MEDS ORDERED: AMITRIPTYLINE 50 MG TAB PO SCH (21:00)
[2019-12-05] MEDS ORDERED: PREGABALIN 50 MG CAP (LYRICA) PO SCH (21:00)
[2019-12-05 22:00] VITALS: BP 147/81
[2019-12-06 02:00] VITALS: BP 163/89
[2019-12-06] MEDS ORDERED: ceFAZolin SOD 1 GM in D5W MINI-BAG PLUS 50 ML IV ONE (03:00)
[2019-12-06 06:00] VITALS: BP 133/74
[2019-12-06 07:00] LABS: HEMATOCRIT 41.7 % (42.0-52.0); HEMOGLOBIN 13.2 g/dl (13.5-17.5); MEAN CORPUSCULAR HEMOGLOBIN 28.3 pg (27.0-33.0); MEAN CORPUSCULAR HGB CONC 31.7 g/dl (32.0-36.5); MEAN CORPUSCULAR VOLUME 89.5 fl (80.0-96.0); PLATELET COUNT, AUTOMATED 195 10^3/uL (150-450); RED BLOOD COUNT 4.66 10^6/uL (4.30-6.10); WHITE BLOOD COUNT 5.4 10^3/uL (4.0-10.0)
[2019-12-06 07:25] LABS: BLOOD UREA NITROGEN 13 MG/DL (7-18); CALCIUM LEVEL 8.3 MG/DL (8.5-10.1); CARBON DIOXIDE LEVEL 30 MEQ/L (21-32); CHLORIDE LEVEL 105 MEQ/L (98-107); CREATININE FOR GFR 1.06 MG/DL (0.70-1.30); GLOMERULAR FILTRATION RATE > 60.0 (>56); GLUCOSE, FASTING 123 MG/DL (70-100); SODIUM LEVEL 139 MEQ/L (136-145)
[2019-12-06] MEDS: FAMOTIDINE 20 MG TAB PO SCH (08:21)
[2019-12-06] MEDS: PREGABALIN 75 MG CAP(LYRICA) PO SCH (08:21)
[2019-12-06] MEDS: HumaLOG INSULIN (NovoLOG) PER UNIT SC SCH (08:22)
[2019-12-06] MEDS: DOCUSATE SODIUM 100 MG CAP PO SCH (08:22)
[2019-12-06] MEDS ORDERED: buPROPion **XL** TABLET 150MG (WELLBUTRIN XL) PO SCH (09:00)
[2019-12-06] MEDS ORDERED: CETIRIZINE (ZyrTEC) 5 MG/5 ML UDC DYE FREE PO SCH (09:00)
== END 2019-12-06 10:35 | disposition home or self-care (01) ==
LOC: M SDC 11:02 → M MS5PR 15:30 → M SDC 12-06 10:35
PROVIDERS: ATTEND Anesthesiology
DX: M54.16 Radiculopathy, lumbar region (principal); G47.30 Sleep apnea, unspecified; E78.5 Hyperlipidemia, unspecified; E11.9 Type 2 diabetes mellitus without complications; K58.8 Other irritable bowel syndrome; Z79.84 Long term (current) use of oral hypoglycemic drugs; Z79.899 Other long term (current) drug therapy
CPT/HCPCS: 36415; 63650; 76000; 80048; 80053; 85027; 93005; 96365; 96366; C1778; J0690; J2250; J3010

== ENCOUNTER → 2019-12-09 | Outpatient (CLI) | payer MEDICARE ==
[~2019-12-09] MED LIST changes: -LR 1,000 ML IV ONE; -ceFAZolin SOD 1 GM in D5W MINI-BAG PLUS 50 ML IV ONE
--- NOTE | 2019-12-09 13:07 | REP ---
Partial thoracic spine: Two views. History: Dorsal column stimulator lead pull. 17 seconds of fluoroscopy time is reported. Findings: A sequence of two last image hold fluoroscopically obtained spot radiographs of the thoracic spine document dorsal column stimulator lead position. Electronically Signed by Leroy Obando MD 12/09/2019 12:58 P
--- NOTE | 2019-12-16 02:42 | ECWPNPC ---
PATIENT NAME: RUBÉN MARC : 1970 GENDER: MALE VISIT DATE: 12/09/2019 DISCHARGE DATE: 12/09/19 1320 VISIT LOCKED DATE TIME: PHYSICIAN: YOANA MENDOZA MD RESOURCE: YOANA MENDOZA MD REASON FOR APPOINTMENT 1. DCS LEAD PULL HISTORY OF PRESENT ILLNESS HISTORY OF PRESENT ILLNESS: PAIN THE PATIENT DESCRIBES THE PAIN... 48 YEAR OLD MALE PATIENT WITH A HISTORY OF CHRONIC LOW BACK AND LEG PAIN. THE PATIENT DESCRIBES THE PAIN SORE, SHARP, STABBING, AND CONTINUOUS WITH A PAIN SCORE OF 6-9/10 DEPENDING ON PHYSICAL ACTIVITY. THE PATIENT STATES HIS PAIN STARTS IN HIS LOW BACK AND RADIATES DOWN MAINLY HIS RIGHT LEG. THE PATIENT HAD HIS DCS TRIAL THIS WEEK, STARTING ON THURSDAY, WHICH HE REPORTS RECEIVING OVER 90 PERCENT GOOD PAIN RELIEF DURING THE TRIAL WEEK. THE PATIENT SAYS DURING HIS TRIAL, HE WAS ABLE TO MOVE AROUND, PERFORM SNOW REMOVAL, CLEAN DISHES, AND SLEEP DUE TO THE GOOD PAIN COVERAGE HE WAS RECEIVING. THE PATIENT SAYS HE IS EXTREMELY HAPPY WITH HIS TRIAL RESULTS AND WOULD LIKE TO MOVE FORWARD WITH THE IMPLANT SURGERY. PATIENT DENIES UNEXPLAINABLE WEIGHT LOSS, FEVER, CHILLS, NEW CHANGES ON HIS URINARY OR BOWEL CONTROL. FALL RISK SCREENING: SCREENING :NO FALLS REPORTED IN THE LAST YEAR CURRENT MEDICATIONS TAKING KEFLEX 500 MG CAPSULE 1 CAPSULE ORALLY EVERY 12 HRS TAKING TRAMADOL HCL 50 MG TABLET 1 TO 2 TAB ORALLY Q4-6H PRN MDD4 TAKING CETIRIZINE HCL 10 MG TABLET TAKE ONE TABLET BY MOUTH EVERY DAY ORAL TAKING DULOXETINE HCL 60 MG CAPSULE DELAYED RELEASE PARTICLES TAKE ONE CAPSULE BY MOUTH TWICE A DAY ORAL TAKING CLOPIDOGREL BISULFATE 75 MG TABLET TAKE ONE TABLET BY MOUTH EVERY DAY ORAL , NOTES: 11-24-19 TAKING FAMOTIDINE 20 MG TABLET TAKE ONE TABLET BY MOUTH EVERY 12 HOURS ORAL TAKING WELLBUTRIN XL 150 MG TABLET EXTENDED RELEASE 24 HOUR 1 TABLET IN THE MORNING ORALLY ONCE A DAY TAKING FLONASE 50 MCG/DOSE INHALER 1 SPRAY IN EACH NOSTRIL NASALLY ONCE A DAY TAKING METFORMIN 500MG ORAL BID TAKING ATORVASTATIN CALCIUM 20 MG TABLET 1 CAP ORALLY DAILY TAKING AMITRIPTYLINE HCL 25 MG TABLET DIRECTED ORALLY TAKING GLIMEPIRIDE 2 MG TABLET 1 TABLET WITH BREAKFAST OR THE FIRST MAIN MEAL OF THE DAY ORALLY ONCE A DAY TAKING LYRICA 150 MG CAPSULE 1 CAPSULE ORALLY TWICE A DAY MDD2 NOT-TAKING LINZESS 145 MCG CAPSULE 1 CAPSULE ORALLY ONCE A DAY MEDICATION LIST REVIEWED AND RECONCILED WITH THE PATIENT PAST MEDICAL HISTORY SLEEP APNEA USES BIPAP GERD HIGH CHOLESTEROL HTN ON PLAVIX FOR VENOUS INSUFFICIENCY DM ALLERGIES MODAFINIL: ITCHING - ALLERGY SURGICAL HISTORY RIGHT CARPAL TUNNEL 11/2016 BARIATRIC SURGERY 04/2017 LEFT CARPAL MARIEL / ELBOW 05/2017 FAMILY HISTORY FATHER: , DIAGNOSED WITH UNSPECIFIED HEART DISEASE MOTHER: , OTHER MALIGNANT NEOPLASM OF UNSPECIFIED SITE 4 BROTHER(S) - HEALTHY. SOCIAL HISTORY GENERAL: TOBACCO USE ARE YOU A:NONSMOKER OTHERS AT HOME: NONE. DIET: BARIATRIC. LANGUAGE LANGUAGES SPOKEN:ESTONIAN DOMESTIC VIOLENCE DO YOU FEEL SAFE IN YOUR ENVIRONMENT?YES RECREATIONAL DRUG USE DRUG USE?NO EXERCISE: NONE. LEARNING BARRIERS / SPECIAL NEEDS BARRIERS TO LEARNING?NO HEARING IMPAIRED?NO VISION IMPAIRED?YES COGNITIVELY IMPAIRED?NO :CORRECTIVE LENSES READINESS TO LEARN?YES LEARNING PREFERENCES?NO LEARNING CAPABILITIES PRESENT?YES EMOTIONAL BARRIERS?NO SPECIAL DEVICES?YES :CANE, WALKER, WHEELCHAIR OPERATING ROOM SPECIALIST NEEDED?NO PAIN CLINIC PFS, CLERGY, PUBLIC HEALTH REFERRALS PFS REFERRAL NEEDED?NO CLERGY REFERRAL NEEDED?NO PUBLIC HEALTH REFERRAL NEEDED?NO WAS THE PROVIDER NOTIFIED OF ANY PERTINENT INFO?YES HAS THE PATIENT BEEN EDUCATED REGARDING HIS/HER PLAN OF CARE?YES HAS THE PATIENT BEEN EDUCATED REGARDING PAIN, THE RISK FOR PAIN, THE IMPORTANCE OF EFFECTIVE PAIN MANAGEMENT, AND THE PAIN ASSESSMENT PROCESS?YES LATEX QUESTIONNAIRE LATEX ALLERGY : HAVE YOU EVER DEVELOPED ANY TYPE OF REACTION AFTER HANDLING LATEX PRODUCTS SUCH RUBBER GLOVES, CONDOMS, DIAPHRAGMS, BALLOONS, SOCKS, OR UNDERWEAR?NO LATEX ALLERGY : HAVE YOU EVER DEVELOPED ANY TYPE OF REACTION DURING OR AFTER DENTAL APPOINTMENT, VAGINAL/RECTAL EXAMINATION, SURGICAL PROCEDURE, OR ANY OTHER EXPOSURE?NO DATE ASKED : 11/25/2019 LATEX RISK : HAVE YOU EVER HAD ANY DIFFICULTY BREATHING OR HIVES AFTER EATING OR HANDLING ANY FRUITS, OR VEGETABLES; SUCH KIWI, BANANAS, STONE FRUITS, OR CHESTNUTSNO LATEX RISK : DO YOU HAVE A PREVIOUS PERSONAL HISTORY OF MORE THAN NINE SURGERIES, SPINA BIFIDA, OR REPEATED CATHERIZATIONS? NO LATEX RISK : ARE YOU FREQUENTLY EXPOSED TO LATEX PRODUCTS IN YOUR OCCUPATION?NO CAFFEINE CAFFEINE USE?YES ADVANCE DIRECTIVE ADVANCE DIRECTIVE DISCUSSED WITH PATIENT:YES HAS HCP BROTHER-MARYANNE MARC [phone] JEWISH [id number] TEM[place] MARITAL STATUS: SINGLE. ALCOHOL SCREENING DID YOU HAVE A DRINK CONTAINING ALCOHOL IN THE PAST YEAR?NO POINTS0 INTERPRETATIONNEGATIVE REVIEWED 01/20/18 1009 BV04/20/18 REVIEWED WITH PT. BRONSON WITH PATIENT 08/27/18 0906 JSREVIEWED WITH PATIENT 11/23/18 1025 JSREVIEWED WITH PATIENT 11/11/2019 DS. HOSPITALIZATION/MAJOR DIAGNOSTIC PROCEDURE SEE ABOVE REVIEW OF SYSTEMS REVIEWED BY: PROVIDER: YOANA MENDOZA MD . CONSTITUTIONAL: ANY CHANGE IN YOUR MEDICAL CONDITION? NO . CHILLS NO . FEVER NO . INFECTION: DO YOU HAVE NEW INFECTIONS? NO . DO YOU HAVE HISTORY OF MRSA? NO . MUSCULOSKELETAL: ANY NEW PATTERNS OF PAIN OR NUMBNESS? NO . GASTROENTEROLOGY: ANY NEW CHANGE IN BOWEL CONTROL? NO . GENITOURINARY: ANY NEW CHANGE IN BLADDER CONTROL? NO . IS THERE A CHANCE YOU COULD BE ? NO . HEMATOLOGY/LYMPH: DO YOU TAKE ANY BLOOD THINNERS? (FOR EXAMPLE- COUMADIN, PLAVIX, AGGRENOX, PLATEL, PRADAXA, OR XARELTO) NO . WHEN WAS YOUR LAST DOSE? DATE: TIME: LAST [id number] WHEN CAN T RESUME? . NEUROLOGY: HAVE YOU FALLEN IN THE PAST 12 MONTHS? NO . ANY NEW EXTREMITY NUMBNESS OR WEAKNESS? NO . CARDIOLOGY: DO YOU HAVE A PACEMAKER OR DEFIBRILLATOR? NO . RESPIRATORY: HAVE YOU BEEN SICK IN THE PAST WEEK? NO . FEVER NO . FLU LIKE SYMPTOMS? NO . COUGH NO . INTEGUMENTARY: DO YOU HAVE ANY RASHES OR OPEN SORES? NO . ALLERGIC/IMMUNO: ARE YOU ALLERGIC TO IV DYE? NO . ANY NEW ALLERGIES? NO . PSYCHIATRIC: DO YOU HAVE THOUGHTS OF HURTING YOURSELF OR SOMEONE ELSE? NO . ARE YOU ABUSED, NEGLECTED, OR IN AN UNSAFE ENVIRONMENT? NO . ENDOCRINOLOGY: ARE YOU DIABETIC? YES . OTHER: DO YOU NEED ANY PRESCRIPTIONS? NO . IF YES, PLEASE LIST: ____ . ANY NEW PROBLEMS WITH YOUR MEDICATIONS? NO . WHEN DID YOU LAST EAT? ____ . WHEN DID YOU LAST DRINK? ____ . WHAT DID YOU LAST DRINK? ____ . NAME OF PERSON DRIVING YOU HOME? ____ . DO YOU HAVE ANY OTHER QUESTIONS OR CONCERNS NO . VITAL SIGNS WT 308.0 LBS, HT 69 IN, BMI 45.48 INDEX, BP 131/72 MM HG, HR 71 /MIN, RR 18 /MIN, TEMP 97.6 F, OXYGEN SAT % 99%, SAFE IN ENV? (Y/N) Y, NA INITIALS AW 1140, REVIEWED BY: DS. EXAMINATION GENERAL EXAMINATION: PATIENT IS ALERT O X 3 AND COOPERATIVE. THE PATIENT WAS BROUGHT INTO THE PROCEDURE ROOM. X-RAYS OF THE LEAD'S POSITIONS WERE TAKEN AND WILL BE STORED IN THE PATIENT'S RECORD IN [employer] FOR FUTURE REFERENCE. THE LEADS POSITIONS WERE LOCATED AT T7-T8-T9. THE LEADS WERE COMPLETELY REMOVED. THERE WERE NO EVIDENCE OF BLOOD OR INFECTION. THE AREA WAS CLEANED AND COVERED FOR PROTECTION. ASSESSMENTS INTERVERTEBRAL DISC DISORDERS WITH RADICULOPATHY, LUMBAR REGION - M51.16 (PRIMARY) TREATMENT INTERVERTEBRAL DISC DISORDERS WITH RADICULOPATHY, LUMBAR REGION CLINICAL NOTES: WE DISCUSSED SEVERAL ISSUES WITH MR. MARC' PAIN MANAGEMENT CASE. THE PATIENT EXPRESSED RECEIVING EXCELLENT PAIN COVERAGE DURING HIS TRIAL AND HE WOULD LIKE TO MOVE FORWARD WITH THE IMPLANT SURGERY. THEREFORE, I WILL REFER THE PATIENT TO GEOVANY FISCHER FOR THE IMPLANT SURGERY. THE PATIENT WILL FOLLOW UP WITH THE NURSE PRACTITIONER FOR MEDICATION MANAGEMENT. INSTRUCTIONS WERE GIVEN, QUESTIONS WERE ANSWERED, PATIENT REPORTS UNDERSTANDING AND AGREES WITH THE PLAN. I, RENE CURIEL, DOCUMENTED THE ABOVE INFORMATION ACTING A SCRIBE FOR DR. MENDOZA. I HAVE REVIEWED THE ABOVE DOCUMENT, WRITTEN BY RENE OROZCO AND I VERIFY THAT IT IS ACCURATE. . DIAGNOSTIC IMAGING [facility] FLUORO GUIDANCE (PAIN)[id number] DISPOSITION & COMMUNICATION FOLLOW UP REASON: F/UP MARKETING PR INTERN FOR MEDS ELECTRONICALLY SIGNED BY YOANA MENDOZA MD, MD ON 12/15/2019 AT 01:59 PM EST DISCLAIMER : THIS IS A VISIT SUMMARY EXTRACTED FROM THE [employer] CHART. IT IS NOT A COPY OF THE [employer] PROGRESS NOTE. MTDD
== END ==
LOC: M PAIN 11:30
PROVIDERS: ATTEND Anesthesiology
DX: M51.16 Intervertebral disc disorders with radiculopathy, lumbar region (principal); I10 Essential (primary) hypertension; E11.9 Type 2 diabetes mellitus without complications; Z79.84 Long term (current) use of oral hypoglycemic drugs; Z79.891 Long term (current) use of opiate analgesic; Z79.899 Other long term (current) drug therapy; Z88.8 Allergy status to other drugs, medicaments and biological substances

== ENCOUNTER → 2020-04-09 | Outpatient (CLI) | payer MEDICARE ==
[~2020-04-09] MED LIST changes: +CYCL-707 PO; -CYCL10TA PO
--- NOTE | 2020-04-11 04:22 | ECWPNPC ---
PATIENT NAME: RUBÉN MARC : 1970 GENDER: MALE VISIT DATE: 04/09/2020 DISCHARGE DATE: 04/09/20 1308 VISIT LOCKED DATE TIME: PHYSICIAN: ISAIAH BENNETT RESOURCE: ISAIAH BENNETT REASON FOR APPOINTMENT 1. BACK/LEGS; [email or web address] HISTORY OF PRESENT ILLNESS GENERAL: RUBÉN IS AGREEABLE TO TELEMED VISIT VIA ZOOM. HAD SUCCESSFUL DORSAL COLUMN STIMULATOR TRIAL IN NOVEMBER. WILL BE HAVING PERMANENT STIMULATOR PLACED IN THE NEXT FEW MONTHS. THIS HAS BEEN DELAYED DUE TO COVID 19. REPORTS MARKED REDUCTION IN PAIN WHILE STANDING TO DO DISHES OR ANY ACTIVITIES AROUND THE HOME WHEN HE WAS WITH DORSAL COLUMN STIMULATOR DURING TRIAL. CONTINUES TO SUFFER FROM NEUROPATHY IN THE LOWER EXTREMITIES WELL CHRONIC LOW BACK PAIN. NOT CURRENTLY USING ANY MEDICATIONS FOR PAIN. -. FALL RISK SCREENING: SCREENING :NO FALLS REPORTED IN THE LAST YEAR PAIN SCREENING: PATIENT HAS A COMPLAINT OF ACUTE OR CHRONIC PAIN :YES 04/06/20 INTENSITY OF PAIN (SCALE OF 1 TO 10):8 WHAT DOES YOUR PAIN FEEL LIKE:STABBING PAIN IS INCREASED BY: STANDING PAIN IS DECREASED BY: NOTHING NURSING NOTE: -. PAIN CENTER INTAKE QUESTIONS: DO YOU HAVE A HISTORY OF MRSA? :NO DO YOU TAKE A BLOOD THINNERS? :YES PLAVIX DO YOU HAVE ANY BLEEDING DISORDERS? :NO ANY NEW NUMBNESS OR WEAKNESS IN YOUR LEGS OR ARMS? :NO ANY PACEMAKER,DEFIBRILLATOR, OR DORSAL COLUMN STIMULATOR? :NO DO YOU HAVE ANY RASHES OR OPEN SORES? :NO ARE YOU ALLERGIC TO IV DYE? :NO ARE YOU DIABETIC? :YES ANY NEW PROBLEMS WITH YOUR MEDICATIONS? :NO HAVE YOU RECEIVED A VACCINE IN THE PAST 30 DAYS? :NO DO YOU PLAN TO RECEIVE A VACCINE IN THE NEXT 21 DAYS? :NO DO YOU NEED ANY PRESCRIPTION? :NO DO YOU TAKE ANY IMMUNOSUPPRESSIVE MEDICATIONS? :NO CURRENT MEDICATIONS TAKING CETIRIZINE HCL 10 MG TABLET TAKE ONE TABLET BY MOUTH EVERY DAY ORAL TAKING DULOXETINE HCL 60 MG CAPSULE DELAYED RELEASE PARTICLES TAKE ONE CAPSULE BY MOUTH TWICE A DAY ORAL TAKING CLOPIDOGREL BISULFATE 75 MG TABLET TAKE ONE TABLET BY MOUTH EVERY DAY ORAL , NOTES: 11-24-19 TAKING FAMOTIDINE 20 MG TABLET TAKE ONE TABLET BY MOUTH EVERY 12 HOURS ORAL TAKING WELLBUTRIN XL 150 MG TABLET EXTENDED RELEASE 24 HOUR 1 TABLET IN THE MORNING ORALLY ONCE A DAY TAKING FLONASE 50 MCG/DOSE INHALER 1 SPRAY IN EACH NOSTRIL NASALLY ONCE A DAY TAKING METFORMIN 500MG ORAL BID TAKING ATORVASTATIN CALCIUM 20 MG TABLET 1 CAP ORALLY DAILY TAKING AMITRIPTYLINE HCL 25 MG TABLET DIRECTED ORALLY TAKING GLIMEPIRIDE 2 MG TABLET 1 TABLET WITH BREAKFAST OR THE FIRST MAIN MEAL OF THE DAY ORALLY ONCE A DAY TAKING LYRICA 150 MG CAPSULE 1 CAPSULE ORALLY TWICE A DAY MDD2 TAKING NORCO 5-325 MG TABLET 1 TO2 TSB ORALLY EVERY 6 HRS PRN FOR SEVERE PAIN EPISODES MDD4 #45 TABS SHOULD LAST 30 DAYS NOT-TAKING KEFLEX 500 MG CAPSULE 1 CAPSULE ORALLY EVERY 12 HRS NOT-TAKING TRAMADOL HCL 50 MG TABLET 1 TO 2 TAB ORALLY Q4-6H PRN MDD4 NOT-TAKING LINZESS 145 MCG CAPSULE 1 CAPSULE ORALLY ONCE A DAY MEDICATION LIST REVIEWED AND RECONCILED WITH THE PATIENT PAST MEDICAL HISTORY SLEEP APNEA USES BIPAP GERD HIGH CHOLESTEROL HTN ON PLAVIX FOR VENOUS INSUFFICIENCY DM ALLERGIES MODAFINIL: ITCHING - ALLERGY SURGICAL HISTORY RIGHT CARPAL TUNNEL 11/2016 BARIATRIC SURGERY 04/2017 LEFT CARPAL MARIEL / ELBOW 05/2017 FAMILY HISTORY FATHER: , DIAGNOSED WITH UNSPECIFIED HEART DISEASE MOTHER: , OTHER MALIGNANT NEOPLASM OF UNSPECIFIED SITE 4 BROTHER(S) - HEALTHY. SOCIAL HISTORY GENERAL: TOBACCO USE ARE YOU A:NONSMOKER LATEX QUESTIONNAIRE LATEX ALLERGY : HAVE YOU EVER DEVELOPED ANY TYPE OF REACTION AFTER HANDLING LATEX PRODUCTS SUCH RUBBER GLOVES, CONDOMS, DIAPHRAGMS, BALLOONS, SOCKS, OR UNDERWEAR?NO LATEX ALLERGY : HAVE YOU EVER DEVELOPED ANY TYPE OF REACTION DURING OR AFTER DENTAL APPOINTMENT, VAGINAL/RECTAL EXAMINATION, SURGICAL PROCEDURE, OR ANY OTHER EXPOSURE?NO DATE ASKED : 11/25/2019 LATEX RISK : HAVE YOU EVER HAD ANY DIFFICULTY BREATHING OR HIVES AFTER EATING OR HANDLING ANY FRUITS, OR VEGETABLES; SUCH KIWI, BANANAS, STONE FRUITS, OR CHESTNUTSNO LATEX RISK : DO YOU HAVE A PREVIOUS PERSONAL HISTORY OF MORE THAN NINE SURGERIES, SPINA BIFIDA, OR REPEATED CATHERIZATIONS? NO LATEX RISK : ARE YOU FREQUENTLY EXPOSED TO LATEX PRODUCTS IN YOUR OCCUPATION?NO ALCOHOL SCREENING DID YOU HAVE A DRINK CONTAINING ALCOHOL IN THE PAST YEAR?NO POINTS0 INTERPRETATIONNEGATIVE RECREATIONAL DRUG USE DRUG USE?NO CAFFEINE CAFFEINE USE?YES ANGLICAN [id number] YAZDANISM LANGUAGE LANGUAGES SPOKEN:GUINEAN LEARNING BARRIERS / SPECIAL NEEDS BARRIERS TO LEARNING?NO HEARING IMPAIRED?NO VISION IMPAIRED?YES COGNITIVELY IMPAIRED?NO :CORRECTIVE LENSES READINESS TO LEARN?YES LEARNING PREFERENCES?NO LEARNING CAPABILITIES PRESENT?YES EMOTIONAL BARRIERS?NO SPECIAL DEVICES?YES :CANE, WALKER, WHEELCHAIR FUNDRAISER NEEDED?NO DOMESTIC VIOLENCE DO YOU FEEL SAFE IN YOUR ENVIRONMENT?YES DIET: BARIATRIC. EXERCISE: NONE. MARITAL STATUS: SINGLE. OTHERS AT HOME: NONE. PAIN CLINIC PFS, CLERGY, PUBLIC HEALTH REFERRALS PFS REFERRAL NEEDED?NO CLERGY REFERRAL NEEDED?NO PUBLIC HEALTH REFERRAL NEEDED?NO WAS THE PROVIDER NOTIFIED OF ANY PERTINENT INFO?YES HAS THE PATIENT BEEN EDUCATED REGARDING HIS/HER PLAN OF CARE?YES HAS THE PATIENT BEEN EDUCATED REGARDING PAIN, THE RISK FOR PAIN, THE IMPORTANCE OF EFFECTIVE PAIN MANAGEMENT, AND THE PAIN ASSESSMENT PROCESS?YES ADVANCE DIRECTIVE ADVANCE DIRECTIVE DISCUSSED WITH PATIENT:YES HAS HCP C[facility]IDYER-MARYANNE MARC [phone] REVIEWED 01/20/18 1009 BV04/20/18 REVIEWED WITH PT. ADREVIEWED WITH PATIENT 08/27/18 0906 JSREVIEWED WITH PATIENT 11/23/18 1025 JSREVIEWED WITH PATIENT 11/11/2019 DS. HOSPITALIZATION/MAJOR DIAGNOSTIC PROCEDURE SEE ABOVE REVIEW OF SYSTEMS CONSTITUTIONAL: ANY RECENT FEVER OR ILLNESS NO . CHILLS NO . GASTROENTEROLOGY: BOWEL INCONTINENCE NO . ANY NEW CHANGE IN BOWEL CONTROL? NO . ABDOMINAL PAIN NO . CONSTIPATION NO . GENITOURINARY: ANY NEW CHANGE IN BLADDER CONTROL? NO . IS THERE A CHANCE YOU COULD BE ? NO . URINARY INCONTINENCE NO . CARDIOLOGY: CHEST PRESSURE NO . CHEST PAIN NO . RESPIRATORY: COUGH NO . SHORTNESS OF BREATH NO . EXAMINATION GENERAL EXAMINATION: GENERALNO ACUTE DISTRESS, WELL NOURISHED AND HYDRATED. PSYCHAPPROPRIATE MOOD AND AFFECT . FACE:UNREMARKABLE. ASSESSMENTS INTERVERTEBRAL DISC DISORDERS WITH RADICULOPATHY, LUMBAR REGION - M51.16 (PRIMARY) TREATMENT INTERVERTEBRAL DISC DISORDERS WITH RADICULOPATHY, LUMBAR REGION NOTES: CONTINUE WITH HOME EXERCISES AND STRETCHING. FOLLOW-UP AT PAIN CLINIC IN 4 MONTHS. TOTAL TIME SPENT DURING TELEMED VISIT WAS APPROXIMATELY 12 MINUTES. OTHERS CLINICAL NOTES: PRE SCREENING CALL DONE 04/06/20 EM. DISPOSITION & COMMUNICATION FOLLOW UP 4 MONTHS (REASON: DORSAL COLUMN STIMULATOR FOLLOW-UP) ELECTRONICALLY SIGNED BY ORION GOMEZ ON 04/10/2020 AT 02:27 PM EDT DISCLAIMER : THIS IS A VISIT SUMMARY EXTRACTED FROM THE [employer] CHART. IT IS NOT A COPY OF THE [employer] PROGRESS NOTE. MTDD
== END ==
LOC: M TMPAIN 09:15 → M PAIN 09:15
PROVIDERS: ATTEND Nurse Practitioner Family
DX: M51.16 Intervertebral disc disorders with radiculopathy, lumbar region (principal)

== ENCOUNTER → 2020-11-07 | Outpatient (CLI) | payer MEDICARE ==
--- NOTE | 2020-11-08 23:41 | ECWPNPC ---
PATIENT NAME: RUBÉN MARC : 1970 GENDER: MALE VISIT DATE: 11/07/2020 DISCHARGE DATE: 11/07/20 1000 VISIT LOCKED DATE TIME: PHYSICIAN: ISAIAH BENNETT RESOURCE: ISAIAH BENNETT REASON FOR APPOINTMENT 1. DORSAL COLUMN STIMULATOR FOLLOW-UP HISTORY OF PRESENT ILLNESS DEPRESSION SCREENING: PHQ-2 (2015 EDITION) LITTLE INTEREST OR PLEASURE IN DOING THINGS?NOT AT ALL FEELING DOWN, DEPRESSED, OR HOPELESS?NOT AT ALL TOTAL SCORE0 GENERAL: HERE FOR FOLLOW-UP AFTER DORSAL COLUMN STIMULATOR WAS PLACED IN JUNE. PATIENT IS VERY HAPPY WITH IMPROVEMENT IN PAIN CONTROL ESPECIALLY WITH HIS LOW BACK PAIN THAT RADIATES INTO RIGHT THIGH. NOT CURRENTLY USING ANY PAIN MEDICATIONS. USES DORSAL COLUMN STIMULATOR INTERMITTENTLY WITH GOOD RESULTS. DENIES ADVERSE EFFECTS. -. FALL RISK SCREENING: SCREENING :ONE FALL WITHOUT INJURY IN THE PAST YEAR PAIN SCREENING: PATIENT HAS A COMPLAINT OF ACUTE OR CHRONIC PAIN :YES LOCATION OF PAIN:UPPER BACK, MID BACK INTENSITY OF PAIN (SCALE OF 1 TO 10):4 WHAT DOES YOUR PAIN FEEL LIKE:CONTINOUS, SHARP, STABBING DURATION:CONTINOUS, CONSTANT, STEADY PAIN IS INCREASED BY:ACTIVITIES, OTHERS HANDS ABOVE HEAD, LIFTING PAIN IS DECREASED BY:OTHERS DCS, RESTING NURSING NOTE: -. PAIN CENTER INTAKE QUESTIONS: DO YOU HAVE A HISTORY OF MRSA? :NO DO YOU TAKE A BLOOD THINNERS? :YES PLAVIX DO YOU HAVE ANY BLEEDING DISORDERS? :NO ANY NEW NUMBNESS OR WEAKNESS IN YOUR LEGS OR ARMS? :YES RIGHT SIDED NUMBNESS IN PINKY AND RING FINGER. ANY PACEMAKER,DEFIBRILLATOR, OR DORSAL COLUMN STIMULATOR? :YES DCS DO YOU HAVE ANY RASHES OR OPEN SORES? :NO ARE YOU ALLERGIC TO IV DYE? :NO ARE YOU DIABETIC? :YES ANY NEW PROBLEMS WITH YOUR MEDICATIONS? :NO HAVE YOU RECEIVED A VACCINE IN THE PAST 30 DAYS? :NO DO YOU PLAN TO RECEIVE A VACCINE IN THE NEXT 21 DAYS? :YES WOULD LIKE THE COVID VACCINATION IF AVAILABLE. DO YOU NEED ANY PRESCRIPTION? :NO DO YOU TAKE ANY IMMUNOSUPPRESSIVE MEDICATIONS? :NO IS THERE A CHANCE YOU COULD BE ? :NO ARE YOU BREAST FEEDING? :NO CURRENT MEDICATIONS TAKING CETIRIZINE HCL 10 MG TABLET TAKE ONE TABLET BY MOUTH EVERY DAY ORAL TAKING DULOXETINE HCL 60 MG CAPSULE DELAYED RELEASE PARTICLES TAKE ONE CAPSULE BY MOUTH TWICE A DAY ORAL TAKING CLOPIDOGREL BISULFATE 75 MG TABLET TAKE ONE TABLET BY MOUTH EVERY DAY ORAL , NOTES: 11-24-19 TAKING FAMOTIDINE 20 MG TABLET TAKE ONE TABLET BY MOUTH EVERY 12 HOURS ORAL TAKING WELLBUTRIN XL 150 MG TABLET EXTENDED RELEASE 24 HOUR 1 TABLET IN THE MORNING ORALLY ONCE A DAY TAKING FLONASE 50 MCG/DOSE INHALER 1 SPRAY IN EACH NOSTRIL NASALLY ONCE A DAY TAKING ATORVASTATIN CALCIUM 20 MG TABLET 1 CAP ORALLY DAILY TAKING AMITRIPTYLINE HCL 25 MG TABLET DIRECTED ORALLY TAKING GLIMEPIRIDE 2 MG TABLET 1 TABLET WITH BREAKFAST OR THE FIRST MAIN MEAL OF THE DAY ORALLY ONCE A DAY TAKING LYRICA 150 MG CAPSULE 1 CAPSULE ORALLY TWICE A DAY MDD2 TAKING METFORMIN HCL ER (MOD) 1000 MG TABLET EXTENDED RELEASE 24 HOUR 1 TABLET WITH EVENING MEAL ORALLY BID TAKING LINZESS 145 MCG CAPSULE 1 CAPSULE AT LEAST 30 MINUTES BEFORE THE FIRST MEAL OF THE DAY ON AN EMPTY STOMACH ORALLY ONCE A DAY NOT-TAKING KEFLEX 500 MG CAPSULE 1 CAPSULE ORALLY EVERY 12 HRS NOT-TAKING TRAMADOL HCL 50 MG TABLET 1 TO 2 TAB ORALLY Q4-6H PRN MDD4 NOT-TAKING LINZESS 145 MCG CAPSULE 1 CAPSULE ORALLY ONCE A DAY NOT-TAKING METFORMIN 500MG ORAL BID NOT-TAKING NORCO 5-325 MG TABLET 1 TO2 TSB ORALLY EVERY 6 HRS PRN FOR SEVERE PAIN EPISODES MDD4 #45 TABS SHOULD LAST 30 DAYS MEDICATION LIST REVIEWED AND RECONCILED WITH THE PATIENT PAST MEDICAL HISTORY SLEEP APNEA USES BIPAP GERD HIGH CHOLESTEROL HTN ON PLAVIX FOR VENOUS INSUFFICIENCY DM ALLERGIES MODAFINIL: ITCHING - ALLERGY SURGICAL HISTORY RIGHT CARPAL TUNNEL 11/2016 BARIATRIC SURGERY 04/2017 LEFT CARPAL MARIEL / ELBOW 05/2017 DORSAL COLUMN STIMULATOR 06/11/2020 FAMILY HISTORY FATHER: , DIAGNOSED WITH UNSPECIFIED HEART DISEASE MOTHER: , OTHER MALIGNANT NEOPLASM OF UNSPECIFIED SITE 4 BROTHER(S) - HEALTHY. SOCIAL HISTORY GENERAL: TOBACCO USE ARE YOU A:NONSMOKER LATEX QUESTIONNAIRE LATEX ALLERGY : HAVE YOU EVER DEVELOPED ANY TYPE OF REACTION AFTER HANDLING LATEX PRODUCTS SUCH RUBBER GLOVES, CONDOMS, DIAPHRAGMS, BALLOONS, SOCKS, OR UNDERWEAR?NO LATEX ALLERGY : HAVE YOU EVER DEVELOPED ANY TYPE OF REACTION DURING OR AFTER DENTAL APPOINTMENT, VAGINAL/RECTAL EXAMINATION, SURGICAL PROCEDURE, OR ANY OTHER EXPOSURE?NO LATEX RISK : HAVE YOU EVER HAD ANY DIFFICULTY BREATHING OR HIVES AFTER EATING OR HANDLING ANY FRUITS, OR VEGETABLES; SUCH KIWI, BANANAS, STONE FRUITS, OR CHESTNUTSNO LATEX RISK : DO YOU HAVE A PREVIOUS PERSONAL HISTORY OF MORE THAN NINE SURGERIES, SPINA BIFIDA, OR REPEATED CATHERIZATIONS? NO LATEX RISK : ARE YOU FREQUENTLY EXPOSED TO LATEX PRODUCTS IN YOUR OCCUPATION?NO DATE ASKED : 11/07/2020 LUNG CANCER SCREENING SMOKING STATUS:NON SMOKER ALCOHOL SCREENING DID YOU HAVE A DRINK CONTAINING ALCOHOL IN THE PAST YEAR?NO POINTS0 INTERPRETATIONNEGATIVE RECREATIONAL DRUG USE DRUG USE?NO CAFFEINE CAFFEINE USE?YES RESTORATIONISM [id number] HINDU LANGUAGE LANGUAGES SPOKEN:UPPER SORBIAN LEARNING BARRIERS / SPECIAL NEEDS CHANGE FROM LAST VISIT?NO BARRIERS TO LEARNING?NO HEARING IMPAIRED?NO VISION IMPAIRED?YES :CORRECTIVE LENSES COGNITIVELY IMPAIRED?NO READINESS TO LEARN?YES LEARNING PREFERENCES?NO LEARNING CAPABILITIES PRESENT?YES EMOTIONAL BARRIERS?NO SPECIAL DEVICES?YES :CANE DISTRICT LOSS PREVENTION MANAGER NEEDED?NO DIET: BARIATRIC. EXERCISE: NONE. MARITAL STATUS: SINGLE. OTHERS AT HOME: NONE. PAIN CLINIC PFS, CLERGY, PUBLIC HEALTH REFERRALS PFS REFERRAL NEEDED?NO CLERGY REFERRAL NEEDED?NO PUBLIC HEALTH REFERRAL NEEDED?NO WAS THE PROVIDER NOTIFIED OF ANY PERTINENT INFO?YES HAS THE PATIENT BEEN EDUCATED REGARDING HIS/HER PLAN OF CARE?YES HAS THE PATIENT BEEN EDUCATED REGARDING PAIN, THE RISK FOR PAIN, THE IMPORTANCE OF EFFECTIVE PAIN MANAGEMENT, AND THE PAIN ASSESSMENT PROCESS?YES ADVANCE DIRECTIVE ADVANCE DIRECTIVE DISCUSSED WITH PATIENT:YES HAS HCP BROTHER-MARYANNE MARC [phone] 11/07/20 HOSPITALIZATION/MAJOR DIAGNOSTIC PROCEDURE SEE ABOVE REVIEW OF SYSTEMS CONSTITUTIONAL: ANY RECENT FEVER NO . CHILLS NO . WEIGHT CHANGE OF UNKNOWN REASONS NO . GASTROENTEROLOGY: NEW UNEXPLAINABLE CHANGES IN BOWEL CONTROL NO . CONSTIPATION NO . GENITOURINARY: ANY NEW CHANGE IN BLADDER CONTROL? NO . NEUROLOGY: NEW ONSET DIZZINESS OR NEUROLOGICAL CHANGES NOT MENTIONED NO . NEW NUMBNESS OR PAIN PATTERNS NOT MENTIONED AND PERTINENT TO TODAY'S VISIT NO . CARDIOLOGY: NEW CHEST PRESSURE NO . NEW CHEST PAIN NO . RESPIRATORY: UNEXPLAINABLE COUGH NO . NEW SHORTNESS OF BREATH NO . VITAL SIGNS WT 318.2 LBS, HT 69 IN, BMI 46.98 INDEX, BP 146/76 MM HG, HR 81 /MIN, RR 18 /MIN, TEMP 96.8 F, OXYGEN SAT % 100%, SAFE IN ENV? (Y/N) YES, NA INITIALS AW 0916, REVIEWED BY: CINDY. SABRINA LOCKHART. EXAMINATION GENERAL EXAMINATION: GENERAL AWAKE,ALERT ,PLEASANT . PSYCH AFFECT NORMAL . LUNGS: LUNG BALDERAS ARE CLEAR TO AUSCULTATION BILATERALLY. GOOD MOVEMENT OF AIR . HEART: S1, S2 IN A REGULAR RATE AND RHYTHM. NO SIGNIFICANT MURMURS, RUBS OR GALLOPS NOTED . BACK:WELL-HEALED SURGICAL INCISIONS NOTED MID THORACIC AND RIGHT LUMBAR PARASPINAL . ASSESSMENTS INTERVERTEBRAL DISC DISORDERS WITH RADICULOPATHY, LUMBAR REGION - M51.16 (PRIMARY) TREATMENT INTERVERTEBRAL DISC DISORDERS WITH RADICULOPATHY, LUMBAR REGION NOTES: ADVISED PATIENT TO CALL US WITH ANY PROBLEMS GETTING AHOLD OF DELIVERY REP THROUGH [employer] OR WITH ANY PROBLEMS. FOLLOW-UP IS SCHEDULED IN 6 MONTHS. PROCEDURE CODES [id number] ESTABILISHED PATIENT [facility] FACILITY CHARGE DISPOSITION & COMMUNICATION FOLLOW UP 6 MONTHS (REASON: DCS F/U) ELECTRONICALLY SIGNED BY ORION GOMEZ ON 11/08/2020 AT 02:20 PM EST DISCLAIMER : THIS IS A VISIT SUMMARY EXTRACTED FROM THE [employer] CHART. IT IS NOT A COPY OF THE [employer] PROGRESS NOTE. LISA
== END ==
LOC: M PAIN 09:30
PROVIDERS: ATTEND Nurse Practitioner Family
DX: M51.16 Intervertebral disc disorders with radiculopathy, lumbar region (principal); E11.9 Type 2 diabetes mellitus without complications; G47.30 Sleep apnea, unspecified; Z96.89 Presence of other specified functional implants; Z98.84 Bariatric surgery status; Z88.8 Allergy status to other drugs, medicaments and biological substances; E66.01 Morbid (severe) obesity due to excess calories; Z68.42 Body mass index [BMI] 45.0-49.9, adult; Z79.01 Long term (current) use of anticoagulants; Z79.84 Long term (current) use of oral hypoglycemic drugs; Z79.899 Other long term (current) drug therapy

== ENCOUNTER → 2021-06-04 | Outpatient (CLI) | payer MEDICARE, OTHER ==
[~2021-06-04] MED LIST changes: +BUPR150T12; -BUPR150T3; +HYDR-3490 PO; -HYDR25TAB PO; -LISI-542 PO; +LISI-898 PO; -VITA-157 PO; +VITAE40CA PO
--- NOTE | 2021-06-04 23:31 | ECWPNPC ---
PATIENT NAME: RUBÉN MARC : 1970 GENDER: MALE VISIT DATE: 06/04/2021 DISCHARGE DATE: 06/04/21912 VISIT LOCKED DATE TIME: PHYSICIAN: ISAIAH BENNETT RESOURCE: ISAIAH BENNETT REASON FOR APPOINTMENT 1. DCS F/U HISTORY OF PRESENT ILLNESS DEPRESSION SCREENING: PHQ-9 LITTLE INTEREST OR PLEASURE IN DOING THINGSSEVERAL DAYS FEELING DOWN, DEPRESSED, OR HOPELESSSEVERAL DAYS TROUBLE FALLING OR STAYING ASLEEP, OR SLEEPING TOO MUCHNOT AT ALL FEELING TIRED OR HAVING LITTLE ENERGYSEVERAL DAYS POOR APPETITE OR OVEREATING MORE THAN HALF THE DAYS FEELING BAD ABOUT YOURSELF-OR THAT YOU ARE A FAILURE OR HAVE LET YOURSELF OR YOUR FAMILY DOWN SEVERAL DAYS TROUBLE CONCENTRATING ON THINGS, SUCH READING THE NEWSPAPER OR WATCHING TELEVISION NOT AT ALL MOVING OR SPEAKING SO SLOWLY THAT OTHER PEOPLE COULD HAVE NOTICED. OR THE OPPOSITE- BEING SO FIDGETY OR RESTLESS THAT YOU HAVE BEEN MOVING AROUND A LOT MORE THAN USUALNOT AT ALL THOUGHTS THAT YOU WOULD BE BETTER OFF , OR OF HURTING YOURSELF IN SOME WAY?NOT AT ALL TOTAL SCORE:6 INTERPRETATIONMILD DEPRESSION PHQ-2 (2015 EDITION) LITTLE INTEREST OR PLEASURE IN DOING THINGS?SEVERAL DAYS FEELING DOWN, DEPRESSED, OR HOPELESS?SEVERAL DAYS TOTAL SCORE2 GENERAL: FOR FOLLOW-UP. THIS IS A 6-MONTH FOLLOW-UP FOR DORSAL COLUMN STIMULATOR. CONTINUES TO BE VERY HAPPY WITH DORSAL COLUMN STIMULATOR WITH PAIN CONTROL. HAD DORSAL COLUMN STIMULATOR PLACED APPROXIMATELY 1 YEAR AGO. HAS NOT NEEDED PAIN MEDICATION SINCE PLACEMENT OF DORSAL COLUMN STIMULATOR. -. FALL RISK SCREENING: SCREENING : NO FALLS REPORTED IN THE LAST YEAR. PAIN SCREENING: PATIENT HAS A COMPLAINT OF ACUTE OR CHRONIC PAIN :YES LOCATION OF PAIN:MID BACK, LOW BACK INTENSITY OF PAIN (SCALE OF 1 TO 10):4 WHAT DOES YOUR PAIN FEEL LIKE:ACHING, CONTINOUS DURATION:CONTINOUS, CONSTANT, ALL DAY PAIN IS INCREASED BY:ACTIVITIES PAIN IS DECREASED BY:OTHERS HEATING PAD, RESTING NURSING NOTE: -. PAIN CENTER INTAKE QUESTIONS: DO YOU HAVE A HISTORY OF MRSA? :NO DO YOU TAKE A BLOOD THINNERS? :YES PLAVIX DO YOU HAVE ANY BLEEDING DISORDERS? :NO ANY NEW NUMBNESS OR WEAKNESS IN YOUR LEGS OR ARMS? :YES RIGHT SIDED NUMBNESS IN PINKY AND RING FINGER. ANY PACEMAKER,DEFIBRILLATOR, OR DORSAL COLUMN STIMULATOR? :YES DCS DO YOU HAVE ANY RASHES OR OPEN SORES? :NO ARE YOU ALLERGIC TO IV DYE? :NO ARE YOU DIABETIC? :YES ANY NEW PROBLEMS WITH YOUR MEDICATIONS? :NO HAVE YOU RECEIVED A VACCINE IN THE PAST 30 DAYS? :NO DO YOU PLAN TO RECEIVE A VACCINE IN THE NEXT 21 DAYS? :NO WOULD LIKE THE COVID VACCINATION IF AVAILABLE. DO YOU NEED ANY PRESCRIPTION? :NO DO YOU TAKE ANY IMMUNOSUPPRESSIVE MEDICATIONS? :NO IS THERE A CHANCE YOU COULD BE ? :NO ARE YOU BREAST FEEDING? :NO CURRENT MEDICATIONS TAKING CETIRIZINE HCL 10 MG TABLET TAKE ONE TABLET BY MOUTH EVERY DAY ORAL TAKING DULOXETINE HCL 60 MG CAPSULE DELAYED RELEASE PARTICLES TAKE ONE CAPSULE BY MOUTH TWICE A DAY ORAL TAKING CLOPIDOGREL BISULFATE 75 MG TABLET TAKE ONE TABLET BY MOUTH EVERY DAY ORAL , NOTES: PLAVIX TAKING FAMOTIDINE 20 MG TABLET TAKE ONE TABLET BY MOUTH EVERY 12 HOURS ORAL TAKING WELLBUTRIN XL 150 MG TABLET EXTENDED RELEASE 24 HOUR 1 TABLET IN THE MORNING ORALLY ONCE A DAY TAKING FLONASE 50 MCG/DOSE INHALER 1 SPRAY IN EACH NOSTRIL NASALLY ONCE A DAY TAKING ATORVASTATIN CALCIUM 20 MG TABLET 1 CAP ORALLY DAILY TAKING AMITRIPTYLINE HCL 25 MG TABLET DIRECTED ORALLY TAKING GLIMEPIRIDE 2 MG TABLET 1 TABLET WITH BREAKFAST OR THE FIRST MAIN MEAL OF THE DAY ORALLY ONCE A DAY TAKING LYRICA 150 MG CAPSULE 1 CAPSULE ORALLY TWICE A DAY MDD2 TAKING METFORMIN HCL ER (MOD) 1000 MG TABLET EXTENDED RELEASE 24 HOUR 1 TABLET WITH EVENING MEAL ORALLY BID TAKING LINZESS 145 MCG CAPSULE 1 CAPSULE AT LEAST 30 MINUTES BEFORE THE FIRST MEAL OF THE DAY ON AN EMPTY STOMACH ORALLY ONCE A DAY NOT-TAKING KEFLEX 500 MG CAPSULE 1 CAPSULE ORALLY EVERY 12 HRS NOT-TAKING TRAMADOL HCL 50 MG TABLET 1 TO 2 TAB ORALLY Q4-6H PRN MDD4 NOT-TAKING LINZESS 145 MCG CAPSULE 1 CAPSULE ORALLY ONCE A DAY NOT-TAKING METFORMIN 500MG ORAL BID NOT-TAKING NORCO 5-325 MG TABLET 1 TO2 TSB ORALLY EVERY 6 HRS PRN FOR SEVERE PAIN EPISODES MDD4 #45 TABS SHOULD LAST 30 DAYS MEDICATION LIST REVIEWED AND RECONCILED WITH THE PATIENT PAST MEDICAL HISTORY SLEEP APNEA USES BIPAP GERD HIGH CHOLESTEROL HTN ON PLAVIX FOR VENOUS INSUFFICIENCY DM ALLERGIES MODAFINIL: ITCHING - ALLERGY SOCIAL HISTORY GENERAL: TOBACCO USE ARE YOU A:NONSMOKER LATEX QUESTIONNAIRE LATEX ALLERGY : HAVE YOU EVER DEVELOPED ANY TYPE OF REACTION AFTER HANDLING LATEX PRODUCTS SUCH RUBBER GLOVES, CONDOMS, DIAPHRAGMS, BALLOONS, SOCKS, OR UNDERWEAR?NO LATEX ALLERGY : HAVE YOU EVER DEVELOPED ANY TYPE OF REACTION DURING OR AFTER DENTAL APPOINTMENT, VAGINAL/RECTAL EXAMINATION, SURGICAL PROCEDURE, OR ANY OTHER EXPOSURE?NO LATEX RISK : HAVE YOU EVER HAD ANY DIFFICULTY BREATHING OR HIVES AFTER EATING OR HANDLING ANY FRUITS, OR VEGETABLES; SUCH KIWI, BANANAS, STONE FRUITS, OR CHESTNUTSNO LATEX RISK : DO YOU HAVE A PREVIOUS PERSONAL HISTORY OF MORE THAN NINE SURGERIES, SPINA BIFIDA, OR REPEATED CATHERIZATIONS? NO LATEX RISK : ARE YOU FREQUENTLY EXPOSED TO LATEX PRODUCTS IN YOUR OCCUPATION?NO DATE ASKED : 06/04/2021 ALCOHOL USE: NO. 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 EXERCISE: NONE. MARITAL STATUS: SINGLE. OTHERS AT HOME: NONE. - PFS REFERRAL NEEDED?NO CLERGY REFERRAL NEEDED?NO PUBLIC HEALTH REFERRAL NEEDED?NO WAS THE PROVIDER NOTIFIED OF ANY PERTINENT INFO?YES HAS THE PATIENT BEEN EDUCATED REGARDING HIS/HER PLAN OF CARE?YES HAS THE PATIENT BEEN EDUCATED REGARDING PAIN, THE RISK FOR PAIN, THE IMPORTANCE OF EFFECTIVE PAIN MANAGEMENT, AND THE PAIN ASSESSMENT PROCESS?YES ADVANCE DIRECTIVE ADVANCE DIRECTIVE DISCUSSED WITH PATIENT:YES HAS HCP BROTHER-MARYANNE MARC [phone] 11/07/20 REVIEW OF SYSTEMS CONSTITUTIONAL: ANY RECENT FEVER NO . CHILLS NO . WEIGHT CHANGE OF UNKNOWN REASONS NO . GASTROENTEROLOGY: NEW UNEXPLAINABLE CHANGES IN BOWEL CONTROL NO . CONSTIPATION NO . GENITOURINARY: ANY NEW CHANGE IN BLADDER CONTROL? NO . NEUROLOGY: NEW ONSET DIZZINESS OR NEUROLOGICAL CHANGES NOT MENTIONED NO . NEW NUMBNESS OR PAIN PATTERNS NOT MENTIONED AND PERTINENT TO TODAY'S VISIT NO . CARDIOLOGY: NEW CHEST PRESSURE NO . PATIENT DENIES NO . RESPIRATORY: UNEXPLAINABLE COUGH NO . NEW SHORTNESS OF BREATH NO . VITAL SIGNS WT 324.6 LBS, WT-KG 147.24 KG, HT 69 IN, BMI 47.93 INDEX, BP 173/93 MM HG, HR 107 /MIN, RR 18 /MIN, TEMP 96.7 F, OXYGEN SAT % 96%, SAFE IN ENV? (Y/N) YES, NA INITIALS AW 0842T.LEO BENNETT. EXAMINATION GENERAL EXAMINATION: GENERAL AWAKE,ALERT ,PLEASANT . PSYCH AFFECT NORMAL . LUNGS: LUNG BALDERAS ARE CLEAR TO AUSCULTATION BILATERALLY. GOOD MOVEMENT OF AIR . HEART: S1, S2 IN A REGULAR RATE AND RHYTHM. NO SIGNIFICANT MURMURS, RUBS OR GALLOPS NOTED . BACK:WELL-HEALED SURGICAL INCISIONS NOTED MID THORACIC AND RIGHT LUMBAR PARASPINAL . ASSESSMENTS INTERVERTEBRAL DISC DISORDERS WITH RADICULOPATHY, LUMBAR REGION - M51.16 (PRIMARY) PROCEDURE CODES FA211 ESTABILISHED PATIENT [facility] FACILITY CHARGE DISPOSITION & COMMUNICATION FOLLOW UP 6 MONTHS (REASON: DCS CHECK) ELECTRONICALLY SIGNED BY ORION GOMEZ ON 06/04/2021 AT 01:16 PM EDT DISCLAIMER : THIS IS A VISIT SUMMARY EXTRACTED FROM THE [employer] CHART. IT IS NOT A COPY OF THE [employer] PROGRESS NOTE. LISA
== END ==
LOC: M PAIN 08:45
PROVIDERS: ATTEND Nurse Practitioner Family
DX: M51.16 Intervertebral disc disorders with radiculopathy, lumbar region (principal); E11.9 Type 2 diabetes mellitus without complications; G47.30 Sleep apnea, unspecified; Z96.89 Presence of other specified functional implants; Z88.8 Allergy status to other drugs, medicaments and biological substances; E66.01 Morbid (severe) obesity due to excess calories; Z68.42 Body mass index [BMI] 45.0-49.9, adult; Z79.84 Long term (current) use of oral hypoglycemic drugs; Z79.899 Other long term (current) drug therapy

== ENCOUNTER → 2022-01-03 | Outpatient (CLI) | payer MEDICARE ==
[~2022-01-03] MED LIST changes: -CYMB60CA3 PO; +CYMB60CA4 PO; -LISI-898 PO; +LISI5TAB11 PO
== END ==
LOC: M PAIN 10:30
PROVIDERS: ATTEND Anesthesiology
DX: M51.16 Intervertebral disc disorders with radiculopathy, lumbar region (principal); G89.29 Other chronic pain; E11.9 Type 2 diabetes mellitus without complications; G47.30 Sleep apnea, unspecified; Z96.89 Presence of other specified functional implants; Z88.8 Allergy status to other drugs, medicaments and biological substances; E66.01 Morbid (severe) obesity due to excess calories; Z68.42 Body mass index [BMI] 45.0-49.9, adult; Z79.84 Long term (current) use of oral hypoglycemic drugs; Z79.899 Other long term (current) drug therapy

== ENCOUNTER → 2022-11-05 | Outpatient (CLI) | payer MEDICARE | LOC: M PAIN 09:30 | PROVIDERS: ATTEND Anesthesiology | DX: M51.16 Intervertebral disc disorders with radiculopathy, lumbar region (principal); G89.29 Other chronic pain; E11.9 Type 2 diabetes mellitus without complications; G47.30 Sleep apnea, unspecified; I10 Essential (primary) hypertension; Z96.89 Presence of other specified functional implants; Z88.8 Allergy status to other drugs, medicaments and biological substances; Z79.84 Long term (current) use of oral hypoglycemic drugs; Z79.899 Other long term (current) drug therapy ==